=== PATIENT | male | born 1960 | race Caucasian/White ===

== ENCOUNTER 2020-02-29 09:22 | Inpatient (IN) | payer OTHER, SELFPAY ==
[2020-02-29] VITALS (14 sets, daily range): BP systolic 95–140; BP diastolic 46–91; PULSE 84–112; RESP 18–28; TEMP 36.3–36.9; O2SAT 96–100
--- NOTE | ~2020-02-29 | CT_ITS ---
EXAMINATION: CT abdomen pelvis w con DATE: 02/29/2020 10:49 INDICATION: Abdominal pain. Vomiting. TECHNIQUE: Computed tomography (CT) of the abdomen and pelvis was performed with 100 mL Omnipaque 350 intravenous contrast. Automated exposure control and iterative reconstruction technique were employe d. The dose-length product was 485.32 mGy-cm. COMPARISON: CT abdomen and pelvis 12/24/2015 FINDINGS: The visualized portions of the lung bases demonstrate mild atelectasis. No pleural effusion . The heart size is normal. No pericardial effusion. The liver and spleen are normal. There are quick es of cholecystectomy. The pancreas and adrenal glands are normal. There are cysts in the kidneys bhaskar suring up to 1.8 cm on the right. There are chronic bilateral inguinal hernias containing fat. There are no dilated loops of bowel. The appendix is not visualized. There is wall thickening of multiple l oops of jejunum with mesenteric edema. There is fat stranding around the proximal duodenum. There is a small volume of ascites. There are no pathologically enlarged lymph nodes. There is severe thoracic spondylosis and mild lumbar spondylosis. IMPRESSION: 1. Enteritis involving the duodenum and jejunum. 2. Small volume of ascites. Reviewed, dictated and finalized at location B.
[2020-02-29 10:00] LABS: Add Urine Microscopic? YES; Appearance Urine Cloudy (Clear); Bacteria Urine Trace /hpf; Bilirubin Urine Negative (Negative); Blood Urine Negative (Negative); Color Urine Amber (Yellow); Glucose Urine UA 1+ mg/dL (Negative); Ketones Urine Trace mg/dL (Negative); Leukocyte Esterase Ur Negative LEU/UL (Negative); Mucus Urine Rare /lpf; Nitrate Urine Negative (Negative); Protein Urine 1+ mg/dL (Negative); RBC Urine 0-2 /hpf (0-2); Specific Grav Ur 1.018 (1.001-1.035); Squamous Epithelial Cell Urine Rare /hpf (Few); Urobilinogen Urine Negative mg/dL (<2.0); WBC Urine 0-3 /hpf
--- NOTE | 2020-02-29 10:01 | PC.NURSE ---
Pt wretching loudly, yelling I'm freezing! .
[2020-02-29 10:03] LABS: Basophils Percent Auto 0.2 % (0.2-1.2); Eosinophils Percent Auto 0.1 % (0-4.4); Hematocrit 29.5 % (42.0-52.0); Hemoglobin 10.8 g/dL (14.0-18.0); Immature Granulocyte Absolute 0.19 K/mm3 (0.00-0.031); Immature Granulocyte Percent A 1.1 % (0-0.5); Lymphocytes Percent Auto 10.2 % (18.3-44.2); Mean Corpuscular HGB Conc 36.6 g/dl (32-36); Mean Corpuscular Hemoglobin 32.9 pg (26-34); Mean Corpuscular Volume 89.9 fl (80-100); Mean Platelet Volume 9.7 fl (7.4-10.4); Monocytes Absolute Auto 1.5 K/mm3 (0.1-0.6); Monocytes Percent Auto 8.2 % (2.6-8.5); Neutrophils Absolute Auto 14.2 K/mm3 (1.3-6.7); Neutrophils Percent Auto 80.2 % (45.5-73.1); Platelet Count Result 443 k/mm3 (150-375); Red Blood Count 3.28 M/mm3 (4.6-6.20); White Blood Count 17.7 K/mm3 (4.5-10.0)
[2020-02-29 10:08] LABS: INR 1.1; Partial Thromboplastin Time 22.6 SECONDS (22.3-36.8); Prothrombin Time 13.4 Seconds (11.1-14.7)
[2020-02-29 10:15] LABS: Alanine Aminotransferase 24 U/L (4-50); Alkaline Phosphatase 40 U/L (38-126); Anion Gap 22 mmol/L (8-16); Aspartate Amino Transferase 32 U/L (17-59); Bilirubin,Total 1.1 mg/dL (0.2-1.3); Blood Urea Nitrogen 17 mg/dL (9-20); Calcium 8.6 mg/dL (8.4-10.2); Carbon Dioxide 13 mmol/L (22-30); Chloride 94 mmol/L (98-107); Estimated CRCL calculation 43 ml/min; Estimated Glomerular Filt Rate 41; Glucose 235 mg/dL (75-110); Lipase 134 U/L (23-300); Potassium 3.7 mmol/L (3.4-5.0); Sodium 129 mmol/L (137-145)
--- NOTE | 2020-02-29 10:40 | PC.NURSE ---
Attempting additional blood draw and pt to CT via stretcher.
[2020-02-29] MEDS: SODIUM CHLORIDE 0.9% IV 1,000 ML 999 ML IV CONT ×3 (10:55→11:59)
[2020-02-29] MEDS: ONDANSETRON INJ 4 MG/2 ML VIAL IV PUSH ×2 (10:55→19:39)
[2020-02-29] MEDS: FAMOTIDINE 20 MG/2 ML VIAL IV PUSH (10:56)
--- NOTE | 2020-02-29 11:02 | PC.NURSE ---
Pt returns from CT, lactic acid declined. IVF and meds given IVP.
[2020-02-29 11:05] LABS: CRP 0.8 mg/dL (<1.0); Creatine Kinase 180 U/L (55-170)
[2020-02-29 11:26] LABS: Hemoglobin A1C 5.6 % (<5.7)
--- NOTE | 2020-02-29 11:30 | PC.NURSE ---
lactic acid collected. Pt noted to be yelling out less and appears to be sleeping intermittently but states he doesn't feel any better at present.
[2020-02-29 11:35] LABS: Lactic Acid Reflex 4.1 mmol/L (0.7-2.1)
--- NOTE | 2020-02-29 11:54 | ED.NAVMDI ---
HPI - Nausea/Vomiting/Diarrhea General Chief complaint: Nausea/Vomiting/Diarrhea <FRANKY Bright Last Filed: 02/29/20 12:17> Stated complaint: N/V - chills <FRANKY Bright Last Filed: 02/29/20 12:17> Time Seen by Provider: 02/29/20 10:15 <FRANKY Bright Last Filed: 02/29/20 12:17> Source: patient <FRANKY Bright Last Filed: 02/29/20 12:17> Mode of arrival: ambulatory <FRANKY Bright Last Filed: 02/29/20 12:17> Limitations: no limitations <FRANKY Bright Last Filed: 02/29/20 12:17> History of Present Illness HPI Narrative: Patient is a 59-year-old male who presents to emergency department for evaluation of chills sweats nausea vomiting weakness that occurred over the last 24 hours with multiple episodes of emesis as well as loose stools patient presents with chills sweats notes mild aching pain of the abdomen generalized myalgias. Patient does not take anything for his symptoms denies similar occurrence. Patient denies rectal bleeding melena or hematemesis <FRANKY Bright Last Filed: 02/29/20 12:17> Related Data Home medications: Home Medications Medication Instructions Recorded Confirmed Symbicort 02/29/20 albuterol sulfate 02/29/20 amlodipine 02/29/20 fenofibrate 02/29/20 lisinopril 02/29/20 metoprolol tartrate 02/29/20 montelukast 02/29/20 <FRANKY Bright Last Filed: 02/29/20 12:17> Allergies/Adverse reactions: Allergies Allergy/AdvReac Type Severity Reaction Status Date / Time No Known Allergies Allergy Verified 02/29/20 09:36 <FRANKY Bright Last Filed: 02/29/20 12:17> Review of Systems Review of Systems: All systems reviewed & are unremarkable except as noted in HPI and below <FRANKY Bright Last Filed: 02/29/20 12:17> PMFSH Past Medical History Medical History: Medical History COPD (chronic obstructive pulmonary disease) Hypertension <Surinder Oliva PA-C - Last Filed: 02/29/20 12:17> Social History Social History: Social History Alcohol intake: current Gender identity (if verbalized by the patient): Male <Surinder Oliva PA-C - Last Filed: 02/29/20 12:17> Exam Narrative: Exam Narrative: GENERAL: Ill-appearing, well-nourished, and in no acute distress. HEAD: Normocephalic, atraumatic. EYES: PERRLA and EOMI. ENT: Nares clear, no rhinorrhea or epistaxis. Mucous membranes moist. Oropharynx without tonsillar hypertrophy exudate or other lesions. Bilateral TMs pearly mittal nonbulging NECK: Supple. No adenopathy or masses. No carotid bruits or JVD CHEST: Clear to auscultation. No respiratory distress. No wheezes rales or rhonchi HEART: Regular rate and rhythm. No murmur heard. Normal peripheral pulses. ABDOMEN: Soft, nontender, nondistended, normal active bowel sounds. EXTREMITIES: Normal range of motion. No edema. SKIN: Warm, dry, no rash. NEURO: No focal deficits. Alert and oriented x3. Cranial nerves II through XII grossly intact PSYCH: Normal mood and affect. <Surinder Oliva PA-C - Last Filed: 02/29/20 12:17> Course Course Emergency Course: Patient hydrated in the emergency department will be treated for sepsis likely secondary to enteritis patient feeling better with interventions will be placed in hospital for continued evaluation patient also given nausea medicine and fluids which have helped significantly <Surinder Oliva PA-C - Last Filed: 02/29/20 12:17> AGRICULTURE RESEARCH DIRECTOR/PA Physician Supervision For this encounter, I have reviewed the PA documentation, treatment plan and medical decision making: And I have had [id number] time with the patient. Extensive conversation with patient regarding results of work-up need for admission all questions were answered patient agreement at this t
--- NOTE | 2020-02-29 11:59 | PC.NURSE ---
Pt had emesis approx 200cc yellow bile. Dima GUADALUPE made aware.
[2020-02-29] MEDS: METOCLOPRAMIDE HCL INJ 10 MG/2 ML VIAL IV PUSH (12:29)
[2020-02-29 14:12] LABS: Reflex Lactic Acid Yes or No Add Lactic
[2020-02-29 14:48] LABS: Lactic Acid 1.3 mmol/L (0.7-2.1)
[2020-02-29] MEDS: PANTOPRAZOLE SODIUM IV 40 MG VIAL IV PUSH (15:11)
[2020-02-29] MEDS: LACTATED RINGERS 1,000 ML 125 ML IV CONT (15:11)
[2020-02-29 17:07] LABS: Glucose Point of Care 156 (65-105)
--- NOTE | 2020-02-29 20:14 | PM.IMHP ---
H&P: HPI History of Present Illness Date/Time: 02/29/20 20:14 Chief complaint: Sepsis/acute kidney injury/dehydration/hyperglycem Narrative: This is a pleasant 59 year old male with known history of Chronic HCV, COPD, HTN, and chronic alcohol abuse who presented to the hospital today with complaints of nausea, vomiting, diarrhea, chills, diaphoresis and epigastric pain since yesterday afternoon. His last meal was yesterday morning. He is known to normally drink 8-10 beers daily and his last alcoholic drink was Wednesday. He reports having numerous episodes of bile colored emesis over the past day. He denies any bloody emesis. He has not been on antibiotics recently. He also reports having multiple watery stools since yesterday. He denies any sick contacts and doesn't believe he ate any spoiled food. He denies any blood bowel movements. He also is complaining of rigors and generalized myalgias. The patient was evaluated in the ER today and found to be severely septic with a lactic acid of 4.1, WBC of 17,700, and tachycardic. CT abd/pelvis demonstrated enteritis. He has treated with IV fluids and started on wide spectrum antibiotics. Currently he denies any headache, blurry vision, double vision, fever, neck stiffness, chest pain, shortness of breath, wheezing, coughing, sore throat, chest pain, palpitations, dysuria, hematuria, or focal neurological symptoms. No other complaints. Review of Systems Review of Systems: All systems reviewed & are unremarkable except as noted in HPI and below PMFSH Past Medical History Medical History (Updated 02/29/20 @ 20:33 by Dru Hand MD) COPD (chronic obstructive pulmonary disease) GERD (gastroesophageal reflux disease) Hepatitis C History of anemia Hyperlipidemia Hypertension Surgical History Surgical History (Updated 02/29/20 @ 20:23 by Dru Hand MD) H/O shoulder surgery History of laparoscopic cholecystectomy Hx of appendectomy Family History Family History Father Diabetes mellitus Hypertension Mother Hypertension Social History Social History Smoking packs per day: 1 Smoking cigarettes per day: 20.0 Years smoked: 44 Smoking pack-years: 44.00 Smoking status: Former smoker Tobacco type: cigarettes Second hand tobacco smoke exposure: No Smoking end date: 12/04/15 Alcohol intake: current Drinks per week: 50 Substance use: never Substance use type: former substance user and crack/cocaine Gender identity (if verbalized by the patient): Male Spiritual care concerns: No Meds Home Medications and Allergies Home Medications Medication Instructions Recorded Confirmed Type Symbicort 2 puff INHALATION BID 02/29/20 02/29/20 History albuterol sulfate 2 puff INHALATION PRN 02/29/20 02/29/20 History amlodipine 5 mg BYMOUTH DAILY 02/29/20 02/29/20 History fenofibrate 145 mg BYMOUTH DAILY 02/29/20 02/29/20 History lisinopril 20 mg BYMOUTH DAILY 02/29/20 02/29/20 History loratadine [Claritin] 10 mg PO DAILY 02/29/20 02/29/20 History metoprolol tartrate 25 mg BYMOUTH BID 02/29/20 02/29/20 History montelukast 10 mg BYMOUTH DAILY 02/29/20 02/29/20 History spironolactone 50 mg PO QAM 02/29/20 02/29/20 History Allergies Allergy/AdvReac Type Severity Reaction Status Date / Time No Known Allergies Allergy Verified 02/29/20 09:36 Vital Signs Vital Signs - 24 hr 02/29/20 09:30 02/29/20 09:51 02/29/20 10:12 Temperature 36.3 C L Pulse Rate 93 93 91 Respiratory Rate 26 H Blood Pressure 140/91 H Pulse Oximetry 100 98 100 02/29/20 10:15 02/29/20 10:30 02/29/20 11:17 Temperature Pulse Rate 95 112 H 89 Respiratory Rate 24 H 28 H 18 Blood Pressure 95/71 L Pulse Oximetry 100 96 02/29/20 11:48 02/29/20 12:01 02/29/20 13:47 Temperature Pulse Rate 93 90 103 H Respiratory Rate 22 H Blood Pressure
[2020-02-29 22:35] LABS: Amphetamine Screen Urine Negative (Negative); Barbiturate Screen Urine Negative (Negative); Benzodiazepines Screen Urine Positive (Negative); Cannabinoid Screen Urine Negative (Negative); Cocaine Screen Urine Positive (Negative); Methadone Screen Urine Negative (Negative); Opiate Screen Urine Negative (Negative); Phencyclidine Screen Urine Negative (Negative)
[2020-02-29 22:46] LABS: Glucose Point of Care 153 (65-105)
[2020-03-01] VITALS (7 sets, daily range): BP systolic 116–156; BP diastolic 55–88; PULSE 79–102; RESP 18–20; TEMP 36.3–37; O2SAT 98–100
[2020-03-01] MEDS: ONDANSETRON INJ 4 MG/2 ML VIAL IV PUSH (00:17)
[2020-03-01] MEDS: LACTATED RINGERS 1,000 ML 125 ML IV CONT ×3 (00:21→12:48)
[2020-03-01 02:30] LABS: Glucose Point of Care 127 (65-105)
[2020-03-01 06:49] LABS: Alanine Aminotransferase 16 U/L (4-50); Alkaline Phosphatase 27 U/L (38-126); Anion Gap 9 mmol/L (8-16); Aspartate Amino Transferase 28 U/L (17-59); Bilirubin,Total 0.7 mg/dL (0.2-1.3); Blood Urea Nitrogen 14 mg/dL (9-20); Carbon Dioxide 20 mmol/L (22-30); Chloride 102 mmol/L (98-107); Estimated CRCL calculation 41 ml/min; Estimated Glomerular Filt Rate 39; Glucose 124 mg/dL (75-110); Potassium 3.4 mmol/L (3.4-5.0); Sodium 131 mmol/L (137-145)
[2020-03-01 06:59] LABS: Basophils Percent Auto 0.3 % (0.2-1.2); Eosinophils Percent Auto 0.4 % (0-4.4); Hematocrit 21.3 % (42.0-52.0); Hemoglobin 7.4 g/dL (14.0-18.0); Immature Granulocyte Absolute 0.07 K/mm3 (0.00-0.031); Immature Granulocyte Percent A 0.7 % (0-0.5); Lymphocytes Absolute Auto 1.96 K/mm3 (0.9-3.2); Lymphocytes Percent Auto 19.9 % (18.3-44.2); Mean Corpuscular HGB Conc 34.7 g/dl (32-36); Mean Corpuscular Hemoglobin 32.6 pg (26-34); Mean Corpuscular Volume 93.8 fl (80-100); Mean Platelet Volume 9.6 fl (7.4-10.4); Monocytes Percent Auto 10.5 % (2.6-8.5); Neutrophils Absolute Auto 6.7 K/mm3 (1.3-6.7); Neutrophils Percent Auto 68.2 % (45.5-73.1); Platelet Count Result 285 k/mm3 (150-375); Red Blood Count 2.27 M/mm3 (4.6-6.20); Red Cell Distribution Width 12.2 % (11.5-14.5); White Blood Count 9.8 K/mm3 (4.5-10.0)
--- NOTE | 2020-03-01 07:34 | PC.NURSE ---
0641 Left message with care coordination about consult for alcohol abuse.
[2020-03-01] MEDS: KCL 20 MEQ/SW 100 ML 100 ML 50 MEQ IVPB (10:10)
[2020-03-01] MEDS: PANTOPRAZOLE SODIUM IV 40 MG VIAL IV PUSH (10:15)
[2020-03-01] MEDS: THIAMINE HCL 200 MG/2 ML VIAL 100 MG IV PUSH (10:15)
[2020-03-01] MEDS: SODIUM CHLORIDE 0.9% IV 250 ML 50 ML (12:28)
[2020-03-01 12:30] LABS: Glucose Point of Care 125 (65-105)
--- NOTE | 2020-03-01 12:54 | PM.IMPN ---
Progress Note: A&P Assessment and Plan (1) Gastroenteritis: Code(s): K52.9 - Noninfective gastroenteritis and colitis, unspecified Status: Acute Assessment and Plan: Patient presents with sudden onset of nausea/vomiting/diarrhea. CT shows enteritis. Continue IV Zosyn today. Continue supportive care with IV hydration, antiemetics and pain control. Advance to clear liquids this afternoon and see how he tolerates. (2) Severe sepsis: Code(s): A41.9 - Sepsis, unspecified organism; R65.20 - Severe sepsis without septic shock Status: Acute Assessment and Plan: Evidenced by leukocytosis, tachycardia, lactic acidosis. Lactic acid resolved to 1.3. Suspected source at this time is GI. Blood cultures pending with no growth to date. Improving today. Continue to monitor urine output and vital signs. (3) Acute kidney injury: Code(s): N17.9 - Acute kidney failure, unspecified Status: Acute Assessment and Plan: Appears to be prerenal, suspect from diarrhea and vomiting. Continue IV fluids for now. Avoid nephrotoxic agents and monitor renal function. (4) Prediabetes: Code(s): R73.03 - Prediabetes Status: Acute Assessment and Plan: HgbA1c 5.6. Accuchecks, SSI coverage. (5) Alcohol abuse: Code(s): F10.10 - Alcohol abuse, uncomplicated Status: Chronic Assessment and Plan: Patient drinks up to 10 beers daily, last drink 02/26. No evidence of withdrawal today. Continue to monitor with CIWA. Ativan PRN for withdrawal, continue thiamine. (6) COPD (chronic obstructive pulmonary disease): Qualifiers: COPD type: unspecified COPD Qualified Code(s): J44.9 - Chronic obstructive pulmonary disease, unspecified Code(s): J44.9 - Chronic obstructive pulmonary disease, unspecified Status: Chronic Assessment and Plan: No respiratory distress. Continue bronchodilators. (7) GERD (gastroesophageal reflux disease): Qualifiers: Esophagitis presence: esophagitis presence not specified Qualified Code(s): K21.9 - Gastro-esophageal reflux disease without esophagitis Code(s): K21.9 - Gastro-esophageal reflux disease without esophagitis Status: Chronic Assessment and Plan: Continue PPI therapy. (8) Hypertension: Qualifiers: Hypertension type: unspecified Qualified Code(s): I10 - Essential (primary) hypertension Code(s): I10 - Essential (primary) hypertension Status: Chronic Assessment and Plan: Stable, last 140/70. Plan to resume his home antihypertensives once he is tolerating a diet better. (9) Hyperlipidemia: Qualifiers: Hyperlipidemia type: unspecified Qualified Code(s): E78.5 - Hyperlipidemia, unspecified Code(s): E78.5 - Hyperlipidemia, unspecified Status: Chronic Assessment and Plan: Plan to resume fenofibrate once he is tolerating a diet better. Subjective Date/time seen: 03/01/20 12:35 Interval history: Mr. Mayorga is a 59yo M admitted for sepsis and enteritis. He is sleeping this afternoon but wakes to answer some questions. Reports his abdominal pain is currently 8/10, diffuse. He denies chest pain or shortness of breath. Says he may be willing to try some clear liquids for lunch. Tells me he has not vomited today. Review of Systems Review of Systems: Narrative: Twelve systems were reviewed with pertinent positives and negatives as per HPI. Exam Narrative: Exam Narrative: General: Male resting comfortably in bed in no acute distres
[2020-03-01 17:36] LABS: Glucose Point of Care 150 (65-105)
[2020-03-01 23:00] LABS: Glucose Point of Care 134 (65-105)
[2020-03-02] MEDS: LACTATED RINGERS 1,000 ML 125 ML IV CONT ×3 (00:58→20:00)
[2020-03-02 04:00] VITALS: BP 146/63; PULSE 79; RESP 20; TEMP 36.6; O2SAT 99
[2020-03-02 06:53] LABS: Anion Gap 9 mmol/L (8-16); Basophils Absolute Auto 0.1 K/mm3 (0.0-0.1); Basophils Percent Auto 0.7 % (0.2-1.2); Blood Urea Nitrogen 11 mg/dL (9-20); Carbon Dioxide 23 mmol/L (22-30); Chloride 102 mmol/L (98-107); Eosinophils Absolute Auto 0.1 K/mm3 (0-0.3); Eosinophils Percent Auto 1.2 % (0-4.4); Estimated CRCL calculation 48 ml/min; Estimated Glomerular Filt Rate 48; Glucose 104 mg/dL (75-110); Hemoglobin 7.1 g/dL (14.0-18.0); Immature Granulocyte Absolute 0.05 K/mm3 (0.00-0.031); Immature Granulocyte Percent A 0.7 % (0-0.5); Lymphocytes Absolute Auto 2.27 K/mm3 (0.9-3.2); Lymphocytes Percent Auto 30.5 % (18.3-44.2); Magnesium 0.3 mg/dL (1.6-2.3); Mean Corpuscular HGB Conc 34.3 g/dl (32-36); Mean Corpuscular Hemoglobin 32.4 pg (26-34); Mean Corpuscular Volume 94.5 fl (80-100); Mean Platelet Volume 9.3 fl (7.4-10.4); Monocytes Absolute Auto 0.9 K/mm3 (0.1-0.6); Monocytes Percent Auto 11.7 % (2.6-8.5); Neutrophils Absolute Auto 4.1 K/mm3 (1.3-6.7); Neutrophils Percent Auto 55.2 % (45.5-73.1); Platelet Count Result 268 k/mm3 (150-375); Potassium 3.3 mmol/L (3.4-5.0); Red Blood Count 2.19 M/mm3 (4.6-6.20); Sodium 134 mmol/L (137-145); White Blood Count 7.5 K/mm3 (4.5-10.0)
[2020-03-02 06:54] LABS: Hematocrit 20.7 % (42.0-52.0)
[2020-03-02] MEDS: PANTOPRAZOLE SODIUM IV 40 MG VIAL IV PUSH (07:49)
[2020-03-02] MEDS: THIAMINE HCL 200 MG/2 ML VIAL 100 MG IV PUSH (07:50)
[2020-03-02 08:00] VITALS: BP 146/63; PULSE 79; RESP 20; O2SAT 99
[2020-03-02] MEDS: ALBUTEROL SULFATE (*SP) AEROSOL 1 PUFF 2 PUFF INHALATION (08:22)
[2020-03-02] MEDS: MAGNESIUM SULF 4 GM/WATER100ML 4 GM/100 ML BAG IVPB (08:53)
[2020-03-02] MEDS: POTASSIUM CHLORIDE 20 MEQ TABLET 40 MEQ PO (08:53)
[2020-03-02 10:00] VITALS: BP 99/56; PULSE 99; RESP 16; TEMP 36.3; O2SAT 98
[2020-03-02 12:12] LABS: Hematocrit 21.3 % (42.0-52.0); Hemoglobin 7.3 g/dL (14.0-18.0)
[2020-03-02 12:15] LABS: Glucose Point of Care 117 (65-105)
[2020-03-02 12:23] LABS: Magnesium 1.5 mg/dL (1.6-2.3)
--- NOTE | 2020-03-02 13:01 | P.PNIM_ITS ---
Progress Note: A&P Assessment and Plan (1) Gastroenteritis: Code(s): K52.9 - Noninfective gastroenteritis and colitis, unspecified Status: Acute Assessment and Plan: * Patient presents with sudden onset of nausea/vomiting/diarrhea. CT shows enteritis. * Continue IV Zosyn today. Continue supportive care with IV hydration, antiemetics and pain control. * Advance diet as tolerated, try full liquids today and monitor. (2) Severe sepsis: Code(s): A41.9 - Sepsis, unspecified organism; R65.20 - Severe sepsis without septic shock Status: Acute Assessment and Plan: * Evidenced by leukocytosis, tachycardia, lactic acidosis. Lactic acid resolved to 1.3. Suspected source at this time is GI. Blood cultures pending with no growth to date. * Improving today. Continue to monitor urine output and vital signs. (3) Normocytic anemia: Code(s): D64.9 - Anemia, unspecified Status: Chronic Assessment and Plan: * H&H low, may in part be dilutional as he received judicious IV hydration. No evidence of acute bleeding. May be related to ETOH. * Obtain iron studies, B12/folate in AM and monitor CBC. Transfuse prn. (4) Acute kidney injury: Code(s): N17.9 - Acute kidney failure, unspecified Status: Acute Assessment and Plan: * Appears to be prerenal, suspect from diarrhea and vomiting. Continue IV fluids for now, Cr improving. * Avoid nephrotoxic agents and monitor renal function. (5) Prediabetes: Code(s): R73.03 - Prediabetes Status: Acute Assessment and Plan: * HgbA1c 5.6. Accuchecks, SSI coverage. (6) Alcohol abuse: Code(s): F10.10 - Alcohol abuse, uncomplicated Status: Chronic Assessment and Plan: * Patient drinks up to 10 beers daily, last drink 02/26. No evidence of withdrawal today. * Continue to monitor with CIWA. Ativan PRN for withdrawal, continue thiamine. (7) COPD (chronic obstructive pulmonary disease): Qualifiers: COPD type: unspecified COPD Qualified Code(s): J44.9 - Chronic obstructive pulmonary disease, unspecified Code(s): J44.9 - Chronic obstructive pulmonary disease, unspecified Status: Chronic Assessment and Plan: * No respiratory distress. Continue bronchodilators. (8) GERD (gastroesophageal reflux disease): Qualifiers: Esophagitis presence: esophagitis presence not specified Qualified Code(s): K21.9 - Gastro-esophageal reflux disease without esophagitis Code(s): K21.9 - Gastro-esophageal reflux disease without esophagitis Status: Chronic Assessment and Plan: * Continue PPI therapy. (9) Hypertension: Qualifiers: Hypertension type: unspecified Qualified Code(s): I10 - Essential (primary) hypertension Code(s): I10 - Essential (primary) hypertension Status: Chronic Assessment and Plan: * Stable, last 131/74. Plan to resume his home antihypertensives once he is to lerating a diet better. (10) Hyperlipidemia: Qualifiers: Hyperlipidemia type: unspecified Qualified Code(s): E78.5 - Hy perlipidemia, unspecified Code(s): E78.5 - Hyperlipidemia, unspecifi
--- NOTE | 2020-03-02 13:01 | PM.IMPN ---
Progress Note: A&P Assessment and Plan (1) Gastroenteritis: Code(s): K52.9 - Noninfective gastroenteritis and colitis, unspecified Status: Acute Assessment and Plan: Patient presents with sudden onset of nausea/vomiting/diarrhea. CT shows enteritis. Continue IV Zosyn today. Continue supportive care with IV hydration, antiemetics and pain control. Advance diet as tolerated, try full liquids today and monitor. (2) Severe sepsis: Code(s): A41.9 - Sepsis, unspecified organism; R65.20 - Severe sepsis without septic shock Status: Acute Assessment and Plan: Evidenced by leukocytosis, tachycardia, lactic acidosis. Lactic acid resolved to 1.3. Suspected source at this time is GI. Blood cultures pending with no growth to date. Improving today. Continue to monitor urine output and vital signs. (3) Normocytic anemia: Code(s): D64.9 - Anemia, unspecified Status: Chronic Assessment and Plan: H&H low, may in part be dilutional as he received judicious IV hydration. No evidence of acute bleeding. May be related to ETOH. Obtain iron studies, B12/folate in AM and monitor CBC. Transfuse prn. (4) Acute kidney injury: Code(s): N17.9 - Acute kidney failure, unspecified Status: Acute Assessment and Plan: Appears to be prerenal, suspect from diarrhea and vomiting. Continue IV fluids for now, Cr improving. Avoid nephrotoxic agents and monitor renal function. (5) Prediabetes: Code(s): R73.03 - Prediabetes Status: Acute Assessment and Plan: HgbA1c 5.6. Accuchecks, SSI coverage. (6) Alcohol abuse: Code(s): F10.10 - Alcohol abuse, uncomplicated Status: Chronic Assessment and Plan: Patient drinks up to 10 beers daily, last drink 02/26. No evidence of withdrawal today. Continue to monitor with CIWA. Ativan PRN for withdrawal, continue thiamine. (7) COPD (chronic obstructive pulmonary disease): Qualifiers: COPD type: unspecified COPD Qualified Code(s): J44.9 - Chronic obstructive pulmonary disease, unspecified Code(s): J44.9 - Chronic obstructive pulmonary disease, unspecified Status: Chronic Assessment and Plan: No respiratory distress. Continue bronchodilators. (8) GERD (gastroesophageal reflux disease): Qualifiers: Esophagitis presence: esophagitis presence not specified Qualified Code(s): K21.9 - Gastro-esophageal reflux disease without esophagitis Code(s): K21.9 - Gastro-esophageal reflux disease without esophagitis Status: Chronic Assessment and Plan: Continue PPI therapy. (9) Hypertension: Qualifiers: Hypertension type: unspecified Qualified Code(s): I10 - Essential (primary) hypertension Code(s): I10 - Essential (primary) hypertension Status: Chronic Assessment and Plan: Stable, last 131/74. Plan to resume his home antihypertensives once he is tolerating a diet better. (10) Hyperlipidemia: Qualifiers: Hyperlipidemia type: unspecified Qualified Code(s): E78.5 - Hyperlipidemia, unspecified Code(s): E78.5 - Hyperlipidemia, unspecified Status: Chronic Assessment and Plan: Plan to resume fenofibrate once he is tolerating a diet better. (11) Electrolyte abnormality: Code(s): E87.8 - Other disorders of electrolyte and fluid balance, not elsewhere classified Status: Acute Assessment and Plan: In the setting of GI illness. Magnesium was 0.3 this lorelei
[2020-03-02 14:00] VITALS: BP 131/74; PULSE 101; RESP 16; TEMP 36.5; O2SAT 100
[2020-03-02 17:51] LABS: Glucose Point of Care 120 (65-105)
[2020-03-02 18:00] VITALS: BP 146/69; PULSE 88; RESP 16; TEMP 36.6; O2SAT 100
[2020-03-02] MEDS: MAGNESIUM SULF 1 GM/D5W 100 ML 1 GM/100 ML BAG IVPB (18:30)
[2020-03-02 20:00] VITALS: BP 153/74; PULSE 87; RESP 20; TEMP 36.6; O2SAT 98
[2020-03-02 21:50] LABS: Glucose Point of Care 146 (65-105)
[2020-03-03] VITALS (15 sets, daily range): BP systolic 126–174; BP diastolic 70–90; PULSE 69–85; RESP 16–20; TEMP 36.2–37; O2SAT 98–100
[2020-03-03] MEDS: LACTATED RINGERS 1,000 ML 125 ML IV CONT (05:20)
[2020-03-03 07:10] LABS: Basophils Percent Auto 0.5 % (0.2-1.2); Eosinophils Absolute Auto 0.2 K/mm3 (0-0.3); Eosinophils Percent Auto 2.5 % (0-4.4); Immature Granulocyte Absolute 0.04 K/mm3 (0.00-0.031); Immature Granulocyte Percent A 0.5 % (0-0.5); Lymphocytes Absolute Auto 1.74 K/mm3 (0.9-3.2); Lymphocytes Percent Auto 21.8 % (18.3-44.2); Mean Corpuscular HGB Conc 33.5 g/dl (32-36); Mean Corpuscular Hemoglobin 31.9 pg (26-34); Mean Corpuscular Volume 95.4 fl (80-100); Mean Platelet Volume 9.3 fl (7.4-10.4); Monocytes Absolute Auto 0.8 K/mm3 (0.1-0.6); Monocytes Percent Auto 10.4 % (2.6-8.5); Neutrophils Absolute Auto 5.2 K/mm3 (1.3-6.7); Neutrophils Percent Auto 64.3 % (45.5-73.1); Platelet Count Result 268 k/mm3 (150-375); Red Blood Count 2.16 M/mm3 (4.6-6.20); Red Cell Distribution Width 11.9 % (11.5-14.5)
[2020-03-03 07:11] LABS: Hematocrit 20.6 % (42.0-52.0); Hemoglobin 6.9 g/dL (14.0-18.0)
[2020-03-03 07:29] LABS: Alanine Aminotransferase 20 U/L (4-50); Albumin Level 3.8 g/dL (3.5-5.1); Alkaline Phosphatase 36 U/L (38-126); Anion Gap 9 mmol/L (8-16); Aspartate Amino Transferase 40 U/L (17-59); Bilirubin,Total 0.7 mg/dL (0.2-1.3); Blood Urea Nitrogen 7 mg/dL (9-20); Calcium 7.4 mg/dL (8.4-10.2); Carbon Dioxide 24 mmol/L (22-30); Chloride 101 mmol/L (98-107); Estimated CRCL calculation 56 ml/min; Estimated Glomerular Filt Rate 57; Glucose 110 mg/dL (75-110); Magnesium 1.2 mg/dL (1.6-2.3); Potassium 3.4 mmol/L (3.4-5.0); Sodium 134 mmol/L (137-145)
[2020-03-03 07:37] LABS: Transferrin 248 mg/dL (206-381)
[2020-03-03 08:00] LABS: Glucose Point of Care 107 (65-105)
[2020-03-03] MEDS: THIAMINE HCL 200 MG/2 ML VIAL 100 MG IV PUSH (08:00)
[2020-03-03] MEDS: PANTOPRAZOLE SODIUM IV 40 MG VIAL IV PUSH (08:00)
[2020-03-03 08:34] LABS: Folic Acid 19.4 ng/mL (2.76->20)
[2020-03-03] MEDS: MAGNESIUM SULFATE 3GM/D5W100ML 3 GM/100 ML BAG IVPB (09:00)
[2020-03-03 10:11] LABS: Iron 46 ug/dL (49-181)
[2020-03-03 10:20] LABS: Percent Iron Saturation 13 % (20-50)
[2020-03-03] MEDS: POTASSIUM CHLORIDE 20 MEQ TABLET 40 MEQ PO (11:02)
[2020-03-03 11:53] LABS: Glucose Point of Care 146 (65-105)
--- NOTE | 2020-03-03 16:48 | PM.IMPN ---
Progress Note: A&P Assessment and Plan (1) Gastroenteritis: Code(s): K52.9 - Noninfective gastroenteritis and colitis, unspecified Status: Acute Assessment and Plan: Patient presents with sudden onset of nausea/vomiting/diarrhea. CT shows enteritis. Continue IV Zosyn today. Continue supportive care with antiemetics and pain control. Tolerating a low-fiber diet today. Hopeful for discharge home tomorrow. (2) Severe sepsis: Code(s): A41.9 - Sepsis, unspecified organism; R65.20 - Severe sepsis without septic shock Status: Resolved Assessment and Plan: Evidenced by leukocytosis, tachycardia, lactic acidosis. Lactic acid resolved to 1.3. Suspected source is GI. Blood cultures pending with no growth to date. (3) Normocytic anemia: Code(s): D64.9 - Anemia, unspecified Status: Chronic Assessment and Plan: H&H low, may in part be dilutional as he received judicious IV hydration. No evidence of acute bleeding. May be related to ETOH. Hgb 6.9 today. He is asymptomatic. Transfuse 1 unit packed RBC. Iron and B12 are low, will supplement. Monitor H&H. (4) Acute kidney injury: Code(s): N17.9 - Acute kidney failure, unspecified Status: Resolved Assessment and Plan: Appears to be prerenal, suspect from diarrhea and vomiting. Cr improved with IV hydration. Avoid nephrotoxic agents and monitor renal function. (5) Prediabetes: Code(s): R73.03 - Prediabetes Status: Acute Assessment and Plan: HgbA1c 5.6. Accuchecks, SSI coverage. (6) Alcohol abuse: Code(s): F10.10 - Alcohol abuse, uncomplicated Status: Chronic Assessment and Plan: Patient drinks up to 10 beers daily, last drink 02/26. No evidence of withdrawal today. Continue to monitor with CIWA. Ativan PRN for withdrawal, continue thiamine. (7) COPD (chronic obstructive pulmonary disease): Qualifiers: COPD type: unspecified COPD Qualified Code(s): J44.9 - Chronic obstructive pulmonary disease, unspecified Code(s): J44.9 - Chronic obstructive pulmonary disease, unspecified Status: Chronic Assessment and Plan: No respiratory distress. Continue bronchodilators. (8) GERD (gastroesophageal reflux disease): Qualifiers: Esophagitis presence: esophagitis presence not specified Qualified Code(s): K21.9 - Gastro-esophageal reflux disease without esophagitis Code(s): K21.9 - Gastro-esophageal reflux disease without esophagitis Status: Chronic Assessment and Plan: Continue PPI therapy. (9) Hypertension: Qualifiers: Hypertension type: unspecified Qualified Code(s): I10 - Essential (primary) hypertension Code(s): I10 - Essential (primary) hypertension Status: Chronic Assessment and Plan: Stable, last 131/74. Since he is tolerating a diet we'll resume his oral Norvasc, lisinopril, metoprolol. Monitor BP and change therapy as needed. (10) Hyperlipidemia: Qualifiers: Hyperlipidemia type: unspecified Qualified Code(s): E78.5 - Hyperlipidemia, unspecified Code(s): E78.5 - Hyperlipidemia, unspecified Status: Chronic Assessment and Plan: Resume fenofibrate. (11) Electrolyte abnormality: Code(s): E87.8 - Other disorders of electrolyte and fluid balance, not elsewhere classified Status: Acute Assessment and Plan: In the setting of GI illness. Magnesium was as low as 0.3 and has been replaced; 1.2 this AM and agai
[2020-03-03 17:58] LABS: Glucose Point of Care 129 (65-105)
[2020-03-03] MEDS: SODIUM CHLORIDE 0.9% IV 250 ML 30 ML (19:05)
[2020-03-03] MEDS: METOPROLOL TARTRATE 25 MG TABLET PO (21:27)
[2020-03-03 22:43] LABS: Glucose Point of Care 170 (65-105)
[2020-03-04] VITALS: BP 158/78; PULSE 70
[2020-03-04 04:00] VITALS: BP 169/88; PULSE 69
[2020-03-04 05:02] VITALS: BP 169/88; PULSE 69; RESP 16; TEMP 36.6; O2SAT 100
[2020-03-04 08:00] VITALS: BP 169/86; PULSE 71; RESP 20; TEMP 36.4; O2SAT 97
[2020-03-04] MEDS: amLODIPine BESYLATE 5 MG TABLET PO (08:38)
[2020-03-04] MEDS: CYANOCOBALAMIN 1,000 MCG TABLET 1000 MCG PO (08:39)
[2020-03-04] MEDS: lisinopriL 20 MG TABLET PO (08:39)
[2020-03-04] MEDS: FENOFIBRATE NANOCRYSTALLIZED 145 MG TABLET PO (08:39)
[2020-03-04] MEDS: FERROUS SULFATE 324 MG TABLET PO (08:39)
[2020-03-04 08:40] VITALS: PULSE 64
[2020-03-04] MEDS: MONTELUKAST SODIUM 10 MG TABLET PO (08:40)
[2020-03-04] MEDS: METOPROLOL TARTRATE 25 MG TABLET PO (08:40)
[2020-03-04] MEDS: THIAMINE HCL 200 MG/2 ML VIAL 100 MG IV PUSH (08:41)
[2020-03-04] MEDS: SPIRONOLACTONE 50 MG TABLET PO (08:41)
[2020-03-04] MEDS: PANTOPRAZOLE SODIUM IV 40 MG VIAL IV PUSH (08:41)
[2020-03-04 09:04] LABS: Basophils Percent Auto 0.5 % (0.2-1.2); Eosinophils Absolute Auto 0.2 K/mm3 (0-0.3); Eosinophils Percent Auto 2.7 % (0-4.4); Hematocrit 24.6 % (42.0-52.0); Hemoglobin 8.3 g/dL (14.0-18.0); Immature Granulocyte Absolute 0.03 K/mm3 (0.00-0.031); Immature Granulocyte Percent A 0.4 % (0-0.5); Lymphocytes Absolute Auto 1.76 K/mm3 (0.9-3.2); Lymphocytes Percent Auto 20.5 % (18.3-44.2); Mean Corpuscular HGB Conc 33.7 g/dl (32-36); Mean Corpuscular Hemoglobin 32.2 pg (26-34); Mean Corpuscular Volume 95.3 fl (80-100); Monocytes Percent Auto 11.9 % (2.6-8.5); Neutrophils Absolute Auto 5.5 K/mm3 (1.3-6.7); Platelet Count Result 240 k/mm3 (150-375); Red Blood Count 2.58 M/mm3 (4.6-6.20); White Blood Count 8.6 K/mm3 (4.5-10.0)
[2020-03-04 09:14] LABS: Glucose Point of Care 102 (65-105)
[2020-03-04 09:16] LABS: Anion Gap 8 mmol/L (8-16); Blood Urea Nitrogen 8 mg/dL (9-20); Calcium 7.8 mg/dL (8.4-10.2); Carbon Dioxide 24 mmol/L (22-30); Chloride 102 mmol/L (98-107); Estimated CRCL calculation 52 ml/min; Estimated Glomerular Filt Rate 52; Glucose 100 mg/dL (75-110); Magnesium 1.5 mg/dL (1.6-2.3); Potassium 3.9 mmol/L (3.4-5.0); Sodium 134 mmol/L (137-145)
[2020-03-04 11:58] LABS: Glucose Point of Care 113 (65-105)
[2020-03-04 12:00] VITALS: PULSE 69
--- NOTE | 2020-03-04 12:13 | PM.DS ---
DS: Admitting Diagnosis Admitting Diagnosis Admitting Diagnosis: Sepsis/acute kidney injury/dehydration/hyperglycem DS: Discharge Diagnosis Discharge Diagnosis (1) Gastroenteritis: Code(s): K52.9 - Noninfective gastroenteritis and colitis, unspecified Status: Acute Assessment and Plan: Date of Service is 03/04/20 Mr. Mayorga is a 59yo M with history of COPD, alcohol use disorder, GERD, hypertension, dyslipidemia, and prediabetes who presented to the ED for evaluation of sudden onset nausea/vomiting/diarrhea. CT abdomen demonstrated evidence of enteritis. He was treated with IV Zosyn and supportive care to include IV hydration, bowel rest, antiemetics and pain control. He was noted to have a normocytic anemia and low B12 felt to be related to iron deficiency and alcohol use disorder. He denied hematochezia or melena. He was transfused 1 unit of packed red cells 03/03/20 and started on oral iron and B12 supplementation. His nausea, vomiting and diarrhea improved with the therapy outlined above, tolerating a low-fiber diet, and he was hemodynamically stable for discharge 03/04/20 with oral antibiotics and instructions to follow up with PCP. Patient denies substance use however his urine drug screen was positive for benzodiazepines and cocaine. He was educated on illicit substance cessation and to cut back on alcohol intake. (2) Severe sepsis: Code(s): A41.9 - Sepsis, unspecified organism; R65.20 - Severe sepsis without septic shock Status: Resolved Assessment and Plan: Evidenced by leukocytosis, tachycardia, lactic acidosis. Lactic acid resolved to 1.3. Suspected source is GI. Blood cultures negative. (3) Normocytic anemia: Code(s): D64.9 - Anemia, unspecified Status: Chronic Assessment and Plan: H&H low, may in part be dilutional as he received judicious IV hydration. No evidence of acute bleeding. May be related to ETOH and iron panel is consistent with iron deficiency anemia. (4) Acute kidney injury: Code(s): N17.9 - Acute kidney failure, unspecified Status: Resolved Assessment and Plan: Appears to be prerenal, suspect from diarrhea and vomiting. Cr improved with IV hydration. (5) Prediabetes: Code(s): R73.03 - Prediabetes Status: Acute Assessment and Plan: HgbA1c 5.6. Follow up with PCP. (6) Alcohol abuse: Code(s): F10.10 - Alcohol abuse, uncomplicated Status: Chronic Assessment and Plan: Patient drinks up to 10 beers daily, last drink 02/26. No evidence of withdrawal during admission. (7) COPD (chronic obstructive pulmonary disease): Qualifiers: COPD type: unspecified COPD Qualified Code(s): J44.9 - Chronic obstructive pulmonary disease, unspecified Code(s): J44.9 - Chronic obstructive pulmonary disease, unspecified Status: Chronic Assessment and Plan: No respiratory distress. Continue bronchodilators. (8) GERD (gastroesophageal reflux disease): Qualifiers: Esophagitis presence: esophagitis presence not specified Qualified Code(s): K21.9 - Gastro-esophageal reflux disease without esophagitis Code(s): K21.9 - Gastro-esophageal reflux disease without esophagitis Status: Chronic Assessment and Plan: Continue PPI therapy. (9) Hypertension: Qualifiers: Hypertension type: unspecified Qualified Code(s): I10 - Essential (primary) hypertension Code(s): I10 - Essential (primary) hypertension Status: Chronic Assessment and Plan: Stable on his home antihypertensive regimen.
== END 2020-03-04 13:14 | disposition home or self-care (01) | DRG 720 ==
LOC: ANHED 12:17 → ANH3MEDSUR 03-01 07:00
PROVIDERS: Emergency Medicine Emergency Medical Services; Family Medicine; Admitting Provider Internal Medicine; Emergency Provider Emergency Medicine; Visit Provider Physician Assistant
DX: A41.9 Sepsis, unspecified organism (principal); N28.9 Disorder of kidney and ureter, unspecified; E86.0 Dehydration; K52.9 Noninfective gastroenteritis and colitis, unspecified; J44.9 Chronic obstructive pulmonary disease, unspecified; R65.20 Severe sepsis without septic shock; D64.9 Anemia, unspecified; F10.10 Alcohol abuse, uncomplicated; K21.9 Gastro-esophageal reflux disease without esophagitis; I10 Essential (primary) hypertension; E78.5 Hyperlipidemia, unspecified
CPT/HCPCS: 36415; 36430; 74177; 80048; 80053; 80307; 81001; 82550; 82607; 82728; 82746; 83036; 83540; 83550; 83605; 83690; 83735; 84466; 85014; 85018; 85025; 85610; 85730; 86140; 86850; 86900; 86901; 86920; 87040; 94640; 96361; 96365; 96375; 99285; A9270; C9113; J0131; J2060; J2405; J2543; J2765; J3411; J3475; J3480; J7030; J7050; J7120; P9016; Q9967

== ENCOUNTER 2020-03-18 21:41 | Inpatient (IN) | payer OTHER, SELFPAY ==
--- NOTE | ~2020-03-18 | CT_ITS ---
EXAMINATION: CT abdomen pelvis wo con DATE: 03/18/2020 22:31 INDICATION: Vomiting and diarrhea. TECHNIQUE: Computed tomography (CT) of the abdomen and pelvis was performed without intravenous contr ast. Automated exposure control and iterative reconstruction technique were employed. The dose-length product was 562.14 mGy-cm. COMPARISON: CT abdomen and pelvis 02/29/2020 FINDINGS: The visualized portions of the lung bases are clear without pneumonia or pleural effusion. The heart size is normal. No pericardial effusion. Pneumobilia is noted, likely secondary to sphincte rotomy. There are changes of cholecystectomy. The spleen, pancreas, and adrenal glands are normal. Th ere is a 1.8 cm cyst in right kidney. Left kidney is normal. There are bilateral inguinal hernias con taining fat. There are no dilated loops of bowel. The appendix is not visualized. There is liquid sto ol in the colon correlating with the symptom of diarrhea. There are no pathologically enlarged lymph nodes. There is no free intraperitoneal fluid. There is severe thoracic spondylosis and mild lumbar s pondylosis. IMPRESSION: 1. No etiology for the patient's symptoms. Reviewed, dictated and finalized at location A.
--- NOTE | ~2020-03-18 | US_ITS ---
US renal BI 03/20/2020 08:54 Procedure: Realtime transabdominal ultrasound of the kidneys and bladder. Indication: Acute renal insufficiency Comparison: 07/12/2019 Findings: Renal echotexture is normal bilaterally without hydronephrosis, contour deforming mass or r enal calculus. The right kidney measures 11 cm and left kidney measures 12 cm. Bladder within normal limits. Impression: 1: Unremarkable renal ultrasound. No stones, masses or hydronephrosis. Reviewed, dictated and finalized at location B. Impression: 1: Unremarkable renal ultrasound. No stones, masses or hydronephrosis.
[2020-03-18 21:42] VITALS: BP 127/73; PULSE 121; RESP 22; TEMP 36; O2SAT 100
[2020-03-18 21:47] VITALS: BP 125/68
[2020-03-18 21:58] LABS: Basophils Absolute Auto 0.1 K/mm3 (0.0-0.1); Basophils Percent Auto 0.7 % (0.2-1.2); Eosinophils Percent Auto 0.3 % (0-4.4); Hematocrit 37.4 % (42.0-52.0); Immature Granulocyte Absolute 0.08 K/mm3 (0.00-0.031); Immature Granulocyte Percent A 0.7 % (0-0.5); Lymphocytes Absolute Auto 1.92 K/mm3 (0.9-3.2); Lymphocytes Percent Auto 16.2 % (18.3-44.2); Mean Corpuscular HGB Conc 34.8 g/dl (32-36); Mean Corpuscular Volume 92.1 fl (80-100); Mean Platelet Volume 9.7 fl (7.4-10.4); Monocytes Absolute Auto 1.8 K/mm3 (0.1-0.6); Monocytes Percent Auto 15.3 % (2.6-8.5); Neutrophils Absolute Auto 7.9 K/mm3 (1.3-6.7); Neutrophils Percent Auto 66.8 % (45.5-73.1); Platelet Count Result 553 k/mm3 (150-375); Red Blood Count 4.06 M/mm3 (4.6-6.20); Red Cell Distribution Width 11.9 % (11.5-14.5); White Blood Count 11.8 K/mm3 (4.5-10.0)
[2020-03-18 22:14] LABS: Alanine Aminotransferase 33 U/L (4-50); Albumin Level 5.3 g/dL (3.5-5.1); Alkaline Phosphatase 54 U/L (38-126); Anion Gap 26 mmol/L (8-16); Aspartate Amino Transferase 40 U/L (17-59); Bilirubin,Total 1.1 mg/dL (0.2-1.3); Blood Urea Nitrogen 28 mg/dL (9-20); Calcium 9.4 mg/dL (8.4-10.2); Carbon Dioxide 9 mmol/L (22-30); Chloride 96 mmol/L (98-107); Estimated CRCL calculation 15 ml/min; Estimated Glomerular Filt Rate 13; Glucose 210 mg/dL (75-110); Lipase 280 U/L (23-300); Potassium 4.1 mmol/L (3.4-5.0); Sodium 131 mmol/L (137-145)
--- NOTE | 2020-03-18 22:18 | ECG_ITS ---
Measurements Intervals [place] Rate: 109 P: 31 SD: 160 QRS: 51 QRSD: 126 T: 31 QT: 351 QTc: 474 Interpretive Statements SINUS TACHYCARDIA VENTRICULAR PREMATURE COMPLEX RIGHT BUNDLE BRANCH BLOCK ABNORMAL ECG Electronically Signed On 03-19-2020 7:00:57 CDT by Garret Valdez D.O.
--- NOTE | 2020-03-18 22:18 | ED.GENADULT ---
HPI - General Adult General Chief complaint: Nausea/Vomiting/Diarrhea Stated complaint: Diarrhea, n/v Time Seen by Provider: 03/18/20 22:07 Source: patient History of Present Illness HPI narrative: Patient is a 59 y/o male complaining of vomiting and diarrhea since yesterday. He states that he had 2-3 episodes of vomiting and over 30 episodes of diarrhea. He has some abdominal cramping. He also has some sweating. He denies any fever, cough, chest pain or SOB. He states that he was recently admitted for sepsis. He admits that he did some cocaine 4-5 days ago and he was drinking several days ago. Related Data Home Medications Medication Instructions Recorded Confirmed Symbicort 2 puff INHALATION BID 02/29/20 03/19/20 albuterol sulfate 2 puff INHALATION PRN 02/29/20 03/19/20 amlodipine 5 mg BYMOUTH DAILY 02/29/20 03/19/20 fenofibrate 145 mg BYMOUTH DAILY 02/29/20 03/19/20 lisinopril 20 mg BYMOUTH DAILY 02/29/20 03/19/20 loratadine [Claritin] 10 mg PO DAILY 02/29/20 03/19/20 metoprolol tartrate 25 mg BYMOUTH ONCE 02/29/20 03/19/20 montelukast 10 mg BYMOUTH DAILY 02/29/20 03/19/20 spironolactone 50 mg PO QAM 02/29/20 03/19/20 Aspirin Low Dose 81 mg PO ONCE 03/19/20 03/19/20 Allergies Allergy/AdvReac Type Severity Reaction Status Date / Time No Known Allergies Allergy Verified 03/18/20 21:46 Review of Systems Constitutional: Constitutional: Denies chills, Denies fever(s), Denies headache(s) and Denies weakness Eyes: Eyes: Denies blurry vision ENT: Denies headache(s) and Denies neck pain Cardiovascular: Cardiovascular: Denies chest pain and Denies dyspnea Respiratory: Respiratory: Denies cough and Denies dyspnea Gastrointestinal: Gastrointestinal: Reports abdominal pain, Reports diarrhea, Reports nausea and Reports vomiting Genitourinary: Genitourinary: Denies hematuria and Denies dysuria Musculoskeletal: Musculoskeletal: Denies back pain and Denies neck pain Neurologic: Denies headache(s) and Denies weakness [facility] Past Medical History Medical History COPD (chronic obstructive pulmonary disease) GERD (gastroesophageal reflux disease) Hepatitis C History of anemia Hyperlipidemia Hypertension Surgical History Surgical History H/O shoulder surgery History of laparoscopic cholecystectomy Hx of appendectomy Family History Family History Father Diabetes mellitus Hypertension Mother Hypertension Social History Social History Smoking packs per day: 1 Smoking cigarettes per day: 20.0 Years smoked: 44 Smoking pack-years: 44.00 Smoking status: Former smoker Tobacco type: cigarettes Second hand tobacco smoke exposure: No Smoking end date: 12/04/15 Alcohol intake: current Drinks per week: 50 Substance use: former Substance use type: former substance user, marijuana, crack/cocaine and sedatives Spiritual care concerns: No Exam Const: General: no acute distress and well developed Orientation/consciousness: oriented to person, oriented to place, oriented to time and patient oriented x3 HENMT: Head: normocephalic Ears: external ears normal General nose exam: Normal external nose present Eyes: General: appearance normal, both eyes and all related structures Conjunctivae: conjunctivae normal Neck: Neck: normal visual inspection and full ROM Chest: Chest palpation & inspection: normal inspection of the chest and no tenderness Resp: Effort & Inspection: normal respiratory effort Auscultation: clear to auscultation bilaterally Cardio: Rate: tachycardic Rhythm: regular rhythm GI: GI Palp: No abdominal tenderness and Yes Soft to palpation Skin: General skin exam: normal color and turgor normal Neuro: General: oriented to person, oriented to place, oriented to time
[2020-03-18 23:22] LABS: Creatine Kinase 92 U/L (55-170)
[2020-03-18 23:24] LABS: Lactic Acid Reflex 3.2 mmol/L (0.7-2.1)
[2020-03-18] MEDS: ONDANSETRON INJ 4 MG/2 ML VIAL IV PUSH (23:35)
[2020-03-18] MEDS: SODIUM CHLORIDE 0.9% IV 1,000 ML 999 ML IV CONT (23:35)
[2020-03-19] VITALS (18 sets, daily range): BP systolic 113–153; BP diastolic 68–89; PULSE 87–115; RESP 16–20; TEMP 36.3–37.1; O2SAT 98–100; BMI 28.8
--- NOTE | 2020-03-19 01:46 | ADMGEN ---
This patient, Darrel Mayorga, was admitted to Medical Room 346-01. Patient/family oriented to hospital policies and general routines including ID bracelet, bed and alarms, visiting hours, pain management, procedures, bathroom and other care routines, personal items, smoking policy, room service/diet, and visiting hours. Valuables list has been completed. Information on how to activate the Rapid Response Team has been discussed. Patient/Family are encouraged to report perceived risks to care and to ask questions if they do not understand what they are told or what they should do.
[2020-03-19] MEDS: SODIUM CHLORIDE 0.9% IV 1,000 ML 125 ML IV CONT ×3 (01:51→20:46)
--- NOTE | 2020-03-19 01:58 | PM.IMHP ---
H&P: HPI History of Present Illness Date/Time: 03/19/20 01:58 Chief complaint: cris, dehydration Narrative: this is a 59-year-old male with known past medical history of pre diabetes, COPD, chronic alcohol use, hypertension, hyperlipidemia, GERD who is well known to our hospitalist service as he was just discharged 2 weeks ago after he was treated for severe sepsis and gastroenteritis. Tonight the patient returned to the hospital with ongoing vomiting and diarrhea. He states that he has had ongoing diarrhea since he was discharged although this has worsened over the past 2 days. He describes having over 30 episodes of diarrhea as well as 2-3 episodes of vomiting yesterday. he admits he has not been able to tolerate oral fluids as he immediately started vomiting after drinking some fluids. He also complains of abdominal discomfort especially lower abdominal cramping. He currently denies any fever, cough, shortness of breath, chest pain, palpitations, dysuria, hematuria, black stools, lower extremity swelling, rectal bleeding, or focal neurological deficits. The [facility] and found to have be in acute renal failure with a creatinine of 4.80. his lactic acid was 3.2. CT abdomen pelvis was obtained in [facility] ER [facility] which was unremarkable for the patient's symptoms. The patient was tested for C diff colitis as he was previously on Zosyn 2 weeks ago when he was admitted to the hospital. We been asked to admit the patient to the hospital for his acute kidney injury. The patient was previously positive on his UDS for cocaine use and [facility] denies any recent cocaine use. Review of Systems Review of Systems: All systems reviewed & are unremarkable except as noted in HPI and below PMFSH Past Medical History Medical History COPD (chronic obstructive pulmonary disease) GERD (gastroesophageal reflux disease) Hepatitis C History of anemia Hyperlipidemia Hypertension Surgical History Surgical History H/O shoulder surgery History of laparoscopic cholecystectomy Hx of appendectomy Family History Family History Father Diabetes mellitus Hypertension Mother Hypertension Social History Social History Smoking packs per day: 1 Smoking cigarettes per day: 20.0 Years smoked: 44 Smoking pack-years: 44.00 Smoking status: Former smoker Tobacco type: cigarettes Second hand tobacco smoke exposure: No Smoking end date: 12/04/15 Alcohol intake: current Drinks per week: 50 Substance use: former Substance use type: former substance user, marijuana, crack/cocaine and sedatives Spiritual care concerns: No Meds Home Medications and Allergies Home Medications Medication Instructions Recorded Confirmed Type Symbicort 2 puff INHALATION BID 02/29/20 03/19/20 History albuterol sulfate 2 puff INHALATION PRN 02/29/20 03/19/20 History amlodipine 5 mg BYMOUTH DAILY 02/29/20 03/19/20 History fenofibrate 145 mg BYMOUTH DAILY 02/29/20 03/19/20 History lisinopril 20 mg BYMOUTH DAILY 02/29/20 03/19/20 History loratadine [Claritin] 10 mg PO DAILY 02/29/20 03/19/20 History metoprolol tartrate 25 mg BYMOUTH ONCE 02/29/20 03/19/20 History montelukast 10 mg BYMOUTH DAILY 02/29/20 03/19/20 History spironolactone 50 mg PO QAM 02/29/20 03/19/20 History cyanocobalamin (vitamin B-12) 1,000 mcg PO QAM 28 Days #28 tablet 03/04/20 03/19/20 Rx [Vitamin B-12] ferrous sulfate 325 mg PO DAILY 30 Days #30 tablet 03/04/20 03/19/20 Rx Allergies Allergy/AdvReac Type Severity Reaction Status Date / Time No Known Allergies Allergy Verified 03/18/20 21:46 Vital Signs Vital Signs - 24 hr 03/18/20 21:42 03/19/20 01:42 03/19/20 01:49 Temperature 36.0 C L 36.8 C 36.3 C L Pulse
[2020-03-19 02:07] LABS: Reflex Lactic Acid Yes or No Add Lactic
[2020-03-19 02:49] LABS: Lactic Acid 1.5 mmol/L (0.7-2.1)
[2020-03-19] MEDS: PROMETHAZINE HCL 25 MG/ML AMPUL IM (04:54)
[2020-03-19] MEDS: LOPERAMIDE HCL 2 MG CAPSULE PO (04:57)
[2020-03-19 05:55] LABS: Add Urine Microscopic? YES; Amorphous Sediment Urine Few; Appearance Urine Cloudy (Clear); Bacteria Urine Trace /hpf; Bilirubin Urine 1+ (Negative); Blood Urine Negative (Negative); Color Urine Amber (Yellow); Glucose Urine UA Negative (Negative); Hyaline Casts Urine 50+ /lpf; Ketones Urine Negative (Negative); Leukocyte Esterase Ur Negative LEU/UL (Negative); Mucus Urine Few /lpf; Nitrate Urine Negative (Negative); Protein Urine 2+ mg/dL (Negative); Specific Grav Ur 1.018 (1.001-1.035); Squamous Epithelial Cell Urine Many /hpf (Few)
[2020-03-19 06:03] LABS: Barbiturate Screen Urine Negative (Negative)
[2020-03-19 06:10] LABS: Amphetamine Screen Urine Negative (Negative); Cannabinoid Screen Urine Negative (Negative); Cocaine Screen Urine Positive (Negative); Methadone Screen Urine Negative (Negative); Opiate Screen Urine Negative (Negative); Phencyclidine Screen Urine Negative (Negative)
[2020-03-19 06:20] LABS: Benzodiazepines Screen Urine Positive (Negative)
[2020-03-19] MEDS: THIAMINE HCL 200 MG/2 ML VIAL 100 MG IV PUSH (08:47)
[2020-03-19 11:43] LABS: Glucose Point of Care 136 (65-105)
[2020-03-19 11:43] LABS: Glucose Point of Care 130 (65-105)
[2020-03-19] MEDS: FERROUS SULFATE 324 MG TABLET PO (12:31)
[2020-03-19] MEDS: ASPIRIN 81 MG CHEWABLE TABLET PO (12:31)
[2020-03-19] MEDS: METOPROLOL TARTRATE 25 MG TABLET BY MOUTH (12:31)
[2020-03-19] MEDS: ONDANSETRON INJ 4 MG/2 ML VIAL IV PUSH ×3 (12:39→23:51)
--- NOTE | 2020-03-19 13:13 | WPDGICN ---
Assessment and Plan Assessment and plan (1) Nausea & vomiting: Qualifiers: Vomiting type: unspecified Vomiting Intractability: non-intractable Qualified Code(s): R11.2 - Nausea with vomiting, unspecified Code(s): R11.2 - Nausea with vomiting, unspecified Status: Acute Assessment and Plan: probably multifactorial, he was recently in the hospital treated for gastroenteritis but also still drinking and using cocaine. This time presented with NATALY and dehydration. Continue with medical support, antiemetics prn, fluids. (2) Acute dehydration: Code(s): E86.0 - Dehydration Status: Acute Assessment and Plan: better after medical treatment (3) Diarrhea: Code(s): R19.7 - Diarrhea, unspecified Status: Acute Assessment and Plan: stool samples pending, will reassess (4) NATALY (acute kidney injury): Code(s): N17.9 - Acute kidney failure, unspecified Status: Acute Assessment and Plan: on fluids, continue to monitor (5) Alcohol abuse: Code(s): F10.10 - Alcohol abuse, uncomplicated Status: Chronic Assessment and Plan: he is at risk for dt's, ciwa protocol on thiamine, mvi, ativan prn liver enzymes normal will check hcv RNA (patient says that was treated and achieved SVR) GI Consult Note Consult date/time: 03/19/20 13:13 Reason for consult: nausea, vomiting, diarrhea HPI: Darrel Mayorga is a 59 year old male past medical history of pre diabetes, COPD, chronic alcohol use (8-15 beers daily for years), hypertension, hyperlipidemia, GERD who was in the hospital about 2 weeks ago for severe sepsis and gastroenteritis. He also has history of cocaine use (last time few days ago) and he came here with nausea and vomiting for last 2 days, also diarrhea. ER evaluation with acute renal failure, creati 4.8 (last time about 1), liver enzymes normal. Had CT scan that was normal (2 weeks ago showed enteritis). He also was anxious and received ativan. He was admitted with dehydration and is getting fluids now. He also has been treated for HCV and was told that cleared infection. Had liver bx 2017 that showed stage 3 fibrosis. He also had ERCP by Dr Hernandez 2017 because choledocholithiasis followed by cholecystectomy with liver bx. Review of Systems Constitutional: Constitutional: Reports fatigue and Denies headache(s) Eyes: Eyes: Denies blurry vision ENT: Reports Normal hearing present, Denies headache(s) and Denies neck pain Cardiovascular: Cardiovascular: Denies chest pain and Denies dyspnea Respiratory: Respiratory: Denies dyspnea Gastrointestinal: Gastrointestinal: Reports diarrhea, Reports nausea and Reports vomiting Genitourinary: Genitourinary: Denies dysuria Musculoskeletal: Musculoskeletal: Denies neck pain Integumentary/Breasts: Skin/Breast: Denies dry skin Neurologic: Reports Normal hearing present, Denies headache(s) and Denies weakness Psychiatric: Psychiatric: Reports anxiety Endocrine: Endocrine: Denies change in body appearance Hematologic/Lymphatic: Hematologic/Lymphatic: Denies easy bleeding Allergic/Immunologic: Allergic/Immunologic: Denies urticaria PMFSH Past Medical History Medical History COPD (chronic obstructive pulmonary disease) GERD (gastroesophageal reflux disease) Hepatitis C History of anemia Hyperlipidemia Hypertension Surgical History Surgical History H/O shoulder surgery History of laparoscopic cholecystectomy Hx of appendectomy Family History Family History Father Diabetes mellitus Hypertension Mother Hypertension Social History Social History Smoking packs per day: 1 Smoking cigarettes per day: 20.0 Years smoked: 44 Smoking pack-years: 44.00 Smoking status: [place]
[2020-03-19 13:27] LABS: Basophils Absolute Auto 0.1 K/mm3 (0.0-0.1); Basophils Percent Auto 0.9 % (0.2-1.2); Eosinophils Absolute Auto 0.2 K/mm3 (0-0.3); Eosinophils Percent Auto 2.1 % (0-4.4); Hematocrit 33.2 % (42.0-52.0); Hemoglobin 11.4 g/dL (14.0-18.0); Immature Granulocyte Absolute 0.08 K/mm3 (0.00-0.031); Immature Granulocyte Percent A 0.9 % (0-0.5); Lymphocytes Absolute Auto 2.36 K/mm3 (0.9-3.2); Lymphocytes Percent Auto 25.9 % (18.3-44.2); Mean Corpuscular HGB Conc 34.3 g/dl (32-36); Mean Corpuscular Volume 93.3 fl (80-100); Mean Platelet Volume 9.9 fl (7.4-10.4); Monocytes Absolute Auto 1.7 K/mm3 (0.1-0.6); Monocytes Percent Auto 18.7 % (2.6-8.5); Neutrophils Absolute Auto 4.7 K/mm3 (1.3-6.7); Neutrophils Percent Auto 51.5 % (45.5-73.1); Platelet Count Result 472 k/mm3 (150-375); Red Blood Count 3.56 M/mm3 (4.6-6.20); White Blood Count 9.1 K/mm3 (4.5-10.0)
[2020-03-19 13:45] LABS: Albumin Level 4.7 g/dL (3.5-5.1); Anion Gap 18 mmol/L (8-16); Blood Urea Nitrogen 35 mg/dL (9-20); Calcium 7.9 mg/dL (8.4-10.2); Carbon Dioxide 15 mmol/L (22-30); Chloride 101 mmol/L (98-107); Estimated CRCL calculation 11 ml/min; Estimated Glomerular Filt Rate 10; Glucose 154 mg/dL (75-110); Phosphorus 5.1 mg/dL (2.5-4.5); Sodium 134 mmol/L (137-145)
[2020-03-19 16:46] LABS: Glucose Point of Care 172 (65-105)
--- NOTE | 2020-03-19 18:14 | PM.IMPN ---
Progress Note: A&P Assessment and Plan (1) Acute renal failure: Qualifiers: Acute renal failure type: unspecified Qualified Code(s): N17.9 - Acute kidney failure, unspecified Code(s): N17.9 - Acute kidney failure, unspecified Status: Acute Assessment and Plan: Appears to be prerenal from diarrhea, nausea and vomiting as well as taking diuretics and Losartan vs the patients NVD being caused by uremic syndrome secondary to NATALY. He received aggressive IV fluid hydration and repeat BMP showed Cr elevated from 4.8 to 5.7. UA showed cloudy urine, 2+ protein, 50+ hyaline casts which could represent injury from dehydration vs diuretic therapy Nephrology was consulted on the pt and their input is greatly appreciated. Ordered Renal US bilaterally. Monitor urine output and renal function. avoid nephrotoxic agents, Renally dose medications. (2) Lactic acid acidosis: Code(s): E87.2 - Acidosis Status: Acute Assessment and Plan: Most likely from severe dehydration. No acute signs of infection at this time, urine appears to be contaminated. NVD most likely from uremic syndrome vs gastritis vs viral infection Abd/Pelvis CT showed no acute findings Stool cultures sent along with C. diff testing. Continue monitoring. (3) Nausea & vomiting: Qualifiers: Vomiting type: unspecified Vomiting Intractability: non-intractable Qualified Code(s): R11.2 - Nausea with vomiting, unspecified Code(s): R11.2 - Nausea with vomiting, unspecified Status: Acute Assessment and Plan: No acute signs of infection at this time, urine appears to be contaminated. NVD most likely from uremic syndrome vs gastritis vs viral infection Abd/Pelvis CT showed no acute findings Stool cultures sent along with C. diff testing. Continue monitoring. PRN Antiemetics. (4) Diarrhea: Code(s): R19.7 - Diarrhea, unspecified Status: Acute Assessment and Plan: No acute signs of infection at this time, urine appears to be contaminated. NVD most likely from uremic syndrome vs gastritis vs viral infection Abd/Pelvis CT showed no acute findings Stool cultures sent along with C. diff testing. Continue monitoring. PRN Antiemetics. (5) Gastroenteritis: Code(s): K52.9 - Noninfective gastroenteritis and colitis, unspecified Status: Acute Assessment and Plan: The patient continues to have diarrhea. C. diff toxin and stool cultures and pending Continue pain control as needed. IV PPI continued IV hydration. supportive care. (6) Acute dehydration: Code(s): E86.0 - Dehydration Status: Acute Assessment and Plan: Continue IV hydration. Monitor urine output. (7) Alcohol abuse: Code(s): F10.10 - Alcohol abuse, uncomplicated Status: Chronic Assessment and Plan: CIWA-AR protocol. Patients CIWA was 8 last night and this morning and he recived IV Ativan. CIWA seems better now. Continue Thiamine IV daily. Continue monitoring CIWA and educated on alcohol cessation. (8) Prediabetes: Code(s): R73.03 - Prediabetes Status: Chronic Assessment and Plan: Will check HgbA1c. Serum glucose was 154 Continue monitoring Q6hrs since he is not eating much. SSI. Hypoglycemic protocol in place. (9) Hyperlipidemia: Qualifiers: Hyperlipidemia type: unspecified Qualified Code(s): E78.5 - Hyperlipidemia, unspecified Code(s): E78.5 - Hyperlipidemia, unspecified Status: Chronic Assessment and Plan: Continue fenofibrate. (10)
[2020-03-19] MEDS: MONTELUKAST SODIUM 10 MG TABLET PO (20:20)
[2020-03-19] MEDS: busPIRone HCL 5 MG TABLET PO (20:21)
[2020-03-20] VITALS (12 sets, daily range): BP systolic 125–154; BP diastolic 70–102; PULSE 68–94; RESP 14–16; TEMP 36.6–37.4; O2SAT 97–100
[2020-03-20] MEDS: SODIUM CHLORIDE 0.9% IV 1,000 ML 125 ML IV CONT ×3 (04:43→21:06)
[2020-03-20 05:54] LABS: Hemoglobin 9.9 g/dL (14.0-18.0); Mean Corpuscular HGB Conc 34.1 g/dl (32-36); Mean Corpuscular Hemoglobin 31.6 pg (26-34); Mean Corpuscular Volume 92.7 fl (80-100); Mean Platelet Volume 9.7 fl (7.4-10.4); Platelet Count Result 432 k/mm3 (150-375); Red Blood Count 3.13 M/mm3 (4.6-6.20); White Blood Count 8.6 K/mm3 (4.5-10.0)
[2020-03-20 06:11] LABS: Albumin Level 4.1 g/dL (3.5-5.1); Anion Gap 13 mmol/L (8-16); Blood Urea Nitrogen 40 mg/dL (9-20); Calcium 7.4 mg/dL (8.4-10.2); Carbon Dioxide 15 mmol/L (22-30); Chloride 106 mmol/L (98-107); Estimated CRCL calculation 15 ml/min; Estimated Glomerular Filt Rate 14; Glucose 109 mg/dL (75-110); Phosphorus 4.4 mg/dL (2.5-4.5); Potassium 3.8 mmol/L (3.4-5.0); Sodium 134 mmol/L (137-145)
[2020-03-20 06:18] LABS: Hemoglobin A1C 5.1 % (<5.7)
[2020-03-20 07:57] LABS: Glucose Point of Care 115 (65-105)
--- NOTE | 2020-03-20 08:23 | PM.CNNEP ---
Assessment and Plan Assessment and plan (1) NATALY (acute kidney injury): Code(s): N17.9 - Acute kidney failure, unspecified Status: Acute Assessment and Plan: The patient has acute kidney injury. He was told by Dr. Beltran that his creatinine had returned to normal. in the emergency room his creatinine was 5.7. After a little bit of fluid it is fallen to below 5. The patient had severe nausea vomiting and diarrhea. He is probably dehydrated. He could have other causes of kidney disease as well including allergic interstitial nephritis because he was on antibiotics last month. obstruction is always a possibility. I would think that glomerulonephritis would be less likely with this presentation. Infiltrative diseases can cause kidney disease as well but he has no symptoms of this. If the kidneys do not get better soon we can test for these. At this point will get an ultrasound of the kidneys urine electrolytes and eosinophils and continue IV fluids and see how he does. (2) Diarrhea: Code(s): R19.7 - Diarrhea, unspecified Status: Acute Assessment and Plan: The patient has nausea vomiting and diarrhea. There is some belly pain. C diff is being checked. (3) Lactic acid acidosis: Code(s): E87.2 - Acidosis Status: Acute Assessment and Plan: Lactic acid was high in the emergency room. It is already better at 1.5 today. (4) Hypertension: Qualifiers: Hypertension type: unspecified Qualified Code(s): I10 - Essential (primary) hypertension Code(s): I10 - Essential (primary) hypertension Status: Chronic Assessment and Plan: His blood pressure has been under pretty good control. It looks like his blood pressure meds are being held right now. We can fold these back in as we go If the blood pressure rises.. (5) COPD (chronic obstructive pulmonary disease): Qualifiers: COPD type: unspecified COPD Qualified Code(s): J44.9 - Chronic obstructive pulmonary disease, unspecified Code(s): J44.9 - Chronic obstructive pulmonary disease, unspecified Status: Chronic Assessment and Plan: Getting supportive care. History of Present Illness Reason for Consult Consult date: 03/20/20 Chief Complaint Chief complaint: nataly, dehydration History of Present Illness Narrative: Darrel is a very pleasant 59-year-old gentleman who has multiple medical problems including mild elevation of creatinine in the past. He sees Dr. beltran as an outpatient in [place]. He says that his creatinine was elevated a little bit but lately his creatinine has been normal. Patient also has hypertension, anemia, allergies the patient was in the hospital a couple of weeks ago for sepsis. He was placed on antibiotics and this improved. He was discharged. He felt well until a couple of days ago when he started having some nausea and poor appetite. Then he developed severe diarrhea. He went several times a day large volume. The fluid that he expelled was yellow or clear. Never black or bloody. He said it had some dark green particulate matter every once in a while. He had some belly discomfort from the nausea and the vomiting. He did not run any fevers that he knows of. He does not take any [id number] medications. He has not had any bloody foamy cloudy or smelly urine. No painful urination. No kidney stones or bladder infections. Review of Systems Constitutional: Constitutional: Reports no additional constitutional complaints Eyes: Eyes: Reports no additional eye complaints ENT: Reports system reviewed and no additional complaints, except as documented Cardiovascular: Cardiovascular: Reports no additional cardiovascular complaints Respiratory: Respiratory: Reports no additional respiratory complaints Gastrointestinal: Gastrointestinal: Reports no additional gastrointestinal complaints Genitourinary: Genitour
[2020-03-20 09:36] LABS: Creatinine Urine 197.8 mg/dL; Total Protein Urine Random 13 mg/dL
[2020-03-20 09:38] LABS: Sodium Urine Random 81 meq/L
[2020-03-20] MEDS: FERROUS SULFATE 324 MG TABLET PO (09:38)
[2020-03-20] MEDS: ASPIRIN 81 MG CHEWABLE TABLET PO (09:38)
[2020-03-20] MEDS: CYANOCOBALAMIN 1,000 MCG TABLET 1000 MCG PO (09:38)
[2020-03-20] MEDS: busPIRone HCL 5 MG TABLET PO ×2 (09:38→20:57)
[2020-03-20] MEDS: LORATADINE 10 MG TABLET PO (09:38)
[2020-03-20] MEDS: THIAMINE HCL 200 MG/2 ML VIAL 100 MG IV PUSH (09:39)
[2020-03-20] MEDS: PANTOPRAZOLE SODIUM IV 40 MG VIAL IV PUSH ×2 (09:39→20:57)
[2020-03-20] MEDS: ONDANSETRON INJ 4 MG/2 ML VIAL IV PUSH ×2 (09:46→17:00)
[2020-03-20] MEDS: SODIUM BICARBONATE TAB 650 MG TABLET 1300 MG PO ×3 (10:37→17:00)
[2020-03-20 12:09] LABS: Glucose Point of Care 120 (65-105)
[2020-03-20 12:10] LABS: Glucose Point of Care 131 (65-105)
--- NOTE | 2020-03-20 12:12 | P.PNIM_ITS ---
Progress Note: A&P Assessment and Plan (1) Acute renal failure: Qualifiers: Acute renal failure type: unspecified Qualified Code(s): N17.9 - Acute kidney failure, unspecified Code(s): N17.9 - Acute kidney failure, unspecified Status: Acute Assessment and Plan: Appears to be prerenal from diarrhea, nausea and vomiting as well as taking diuretics and Losartan vs the patients NVD being caused by uremic syndrome secondary to NATALY. * He received aggressive IV fluid hydration * BMP showed Cr improved from 5.7-4.4 today. * Does report more urine output today and is less dark in color. * UA showed cloudy urine, 2+ protein, 50+ hyaline casts which could represent injury from dehydration vs diuretic therapy * Nephrology was consulted and ordered a renal ultrasound, urine electrolytes and eosinophils, and continue IV fluid hydration. * Renal ultrasound showed unremarkable renal US with no stones, masses or hydronephrosis. Monitor urine output and renal function. avoid nephrotoxic agents, Renally dose medications. (2) Lactic acid acidosis: Code(s): E87.2 - Acidosis Status: Acute Assessment and Plan: Most likely from severe dehydration. No acute signs of infection at this time, urine appears to be contaminated. NVD most likely from uremic syndrome vs gastritis vs viral infection * Abd/Pelvis CT showed no acute findings. * Stool cultures sent along with C. diff testing. Continue monitoring. (3) Nausea & vomiting: Qualifiers: Vomiting Intractability: non-intractable Vomiting type: unspecified Qualified Code(s): R11.2 - Nausea with vomiting, unspecified Code(s): R11.2 - Nausea with vomiting, unspecified Status: Acute Assessment and Plan: No acute signs of infection at this time, urine appears to be contaminated. NVD most likely from uremic syndrome vs gastritis vs viral infection * Eating better, no nausea or vomiting just GERD like symptoms. * Abd/Pelvis CT showed no acute findings * Stool cultures sent along with C. diff testing. Continue monitoring. PRN Antiemetics. (4) Diarrhea: Code(s): R19.7 - Diarrhea, unspecified Status: Acute Assessment and Plan: No acute signs of infection at this time, urine appears to be contaminated. NVD most likely from uremic syndrome vs gastritis vs viral infection * Abd/Pelvis CT showed no acute findings * Stool cultures sent along with C. diff testing. Continue monitoring. PRN Antiemetics. (5) Gastroenteritis: Code(s): K52.9 - Noninfective gastroenteritis and colitis, unspecified Status: Acute Assessment and Plan: The patient continues to have diarrhea. * C. diff toxin and stool cultures and pending * Continue pain control as needed. * IV PPI continued IV hydration. supportive care. (6) Acute dehydration: Code(s): E86.0 - Dehydration Status: Acute Assessment and Plan: Continue IV hydration. Monitor urine output. (7) Alcohol abuse: Code(s): F10.10 - Alcohol abuse, uncomplicated Status: Chronic Assessment and Plan: CIWA-ND protocol. * Patients CIWA was 8 last night and this morning and he recived IV Ativan. * CIWA seems better now. * Continue Thiamine IV daily. Continue monitoring CIWA and educated on alcohol cessation.
--- NOTE | 2020-03-20 12:12 | PM.IMPN ---
Progress Note: A&P Assessment and Plan (1) Acute renal failure: Qualifiers: Acute renal failure type: unspecified Qualified Code(s): N17.9 - Acute kidney failure, unspecified Code(s): N17.9 - Acute kidney failure, unspecified Status: Acute Assessment and Plan: Appears to be prerenal from diarrhea, nausea and vomiting as well as taking diuretics and Losartan vs the patients NVD being caused by uremic syndrome secondary to NATALY. He received aggressive IV fluid hydration BMP showed Cr improved from 5.7-4.4 today. Does report more urine output today and is less dark in color. UA showed cloudy urine, 2+ protein, 50+ hyaline casts which could represent injury from dehydration vs diuretic therapy Nephrology was consulted and ordered a renal ultrasound, urine electrolytes and eosinophils, and continue IV fluid hydration. Renal ultrasound showed unremarkable renal US with no stones, masses or hydronephrosis. Monitor urine output and renal function. avoid nephrotoxic agents, Renally dose medications. (2) Lactic acid acidosis: Code(s): E87.2 - Acidosis Status: Acute Assessment and Plan: Most likely from severe dehydration. No acute signs of infection at this time, urine appears to be contaminated. NVD most likely from uremic syndrome vs gastritis vs viral infection Abd/Pelvis CT showed no acute findings. Stool cultures sent along with C. diff testing. Continue monitoring. (3) Nausea & vomiting: Qualifiers: Vomiting Intractability: non-intractable Vomiting type: unspecified Qualified Code(s): R11.2 - Nausea with vomiting, unspecified Code(s): R11.2 - Nausea with vomiting, unspecified Status: Acute Assessment and Plan: No acute signs of infection at this time, urine appears to be contaminated. NVD most likely from uremic syndrome vs gastritis vs viral infection Eating better, no nausea or vomiting just GERD like symptoms. Abd/Pelvis CT showed no acute findings Stool cultures sent along with C. diff testing. Continue monitoring. PRN Antiemetics. (4) Diarrhea: Code(s): R19.7 - Diarrhea, unspecified Status: Acute Assessment and Plan: No acute signs of infection at this time, urine appears to be contaminated. NVD most likely from uremic syndrome vs gastritis vs viral infection Abd/Pelvis CT showed no acute findings Stool cultures sent along with C. diff testing. Continue monitoring. PRN Antiemetics. (5) Gastroenteritis: Code(s): K52.9 - Noninfective gastroenteritis and colitis, unspecified Status: Acute Assessment and Plan: The patient continues to have diarrhea. C. diff toxin and stool cultures and pending Continue pain control as needed. IV PPI continued IV hydration. supportive care. (6) Acute dehydration: Code(s): E86.0 - Dehydration Status: Acute Assessment and Plan: Continue IV hydration. Monitor urine output. (7) Alcohol abuse: Code(s): F10.10 - Alcohol abuse, uncomplicated Status: Chronic Assessment and Plan: CIWA-AR protocol. Patients CIWA was 8 last night and this morning and he recived IV Ativan. CIWA seems better now. Continue Thiamine IV daily. Continue monitoring CIWA and educated on alcohol cessation. (8) Prediabetes: Code(s): R73.03 - Prediabetes Status: Chronic Assessment and Plan: Will check HgbA1c. Serum glucose was 131 Continue monitoring Q6hrs since he is not eating much. SSI. Hypoglycemic protocol in place. (9) Hyperlipidemia: Qualifiers: Hyperlipidemia type: unspe
[2020-03-20] MEDS: CALCIUM CARBONATE (TUMS) 500 MG (200 MG ELEMENTAL) PO (12:32)
--- NOTE | 2020-03-20 15:07 | WPDGIPROGNO ---
Progress Note: A&P Assessment and Plan (1) Nausea & vomiting: Qualifiers: Vomiting type: unspecified Vomiting Intractability: non-intractable Qualified Code(s): R11.2 - Nausea with vomiting, unspecified Code(s): R11.2 - Nausea with vomiting, unspecified Status: Acute Assessment and Plan: still with nausea and gerd symptoms, he came with dehydration and NATALY will proceed with egd tomorrow to assess if ulcers, esophagitis, etc also history of alcohol abuse and cocaine. continue with medical care, ppi (2) Acute renal failure: Qualifiers: Acute renal failure type: unspecified Qualified Code(s): N17.9 - Acute kidney failure, unspecified Code(s): N17.9 - Acute kidney failure, unspecified Status: Acute Assessment and Plan: iv fluids, nephrology on board multifactorial from dehydration, n/v, cocaine use, etc (3) Acute dehydration: Code(s): E86.0 - Dehydration Status: Acute (4) Diarrhea: Code(s): R19.7 - Diarrhea, unspecified Status: Acute Assessment and Plan: cdiff stool negative, other cultures pending. (5) GERD (gastroesophageal reflux disease): Qualifiers: Esophagitis presence: esophagitis presence not specified Qualified Code(s): K21.9 - Gastro-esophageal reflux disease without esophagitis Code(s): K21.9 - Gastro-esophageal reflux disease without esophagitis Status: Chronic Assessment and Plan: egd tomorrow (6) Alcohol abuse: Code(s): F10.10 - Alcohol abuse, uncomplicated Status: Chronic Assessment and Plan: [facility] protocol, risk for etoh withdrawal (7) Hepatitis C: Code(s): B19.20 - Unspecified viral hepatitis C without hepatic coma Status: Acute Assessment and Plan: it was treated previously hcv rna pending to confirm eradication Subjective Date/time seen: 03/20/20 15:07 Interval history: still with nausea and reflux sensation, tolerated diet but with dry heaves. He thinks that diarrhea slowing down. Review of Systems Review of Systems: All systems reviewed & are unremarkable except as noted in HPI and below Exam Const: General: comfortable and no acute distress HENMT: General nose exam: Normal nares present Eyes: General: appearance normal, both eyes and all related structures Neck: Neck: no JVD Resp: Auscultation: clear to auscultation bilaterally Cardio: Rate: regular rate Rhythm: regular rhythm GI: Inspection: non-distended GI Palp: Yes Soft to palpation, No Tenderness to palpation present (GI) and No Guarding due to palpation present (GI) Auscultation: normal bowel sounds Skin: General skin exam: normal color Neuro: Speech: normal speech Motor exam (neuro): Normal motor muscle tone present throughout Extrem: General: normal to inspection Psych: Affect: Anxious affect present Objective Data Vital Signs Vital Signs: Vital Signs - 24 hr 03/19/20 16:00 03/19/20 20:00 03/19/20 20:02 Temperature 98.0 F Pulse Rate 87 92 Respiratory Rate 16 Blood Pressure 120/76 128/70 Pulse Oximetry 99 03/19/20 20:29 03/19/20 23:55 03/19/20 23:57 Temperature 98.7 F Pulse Rate 88 97 Respiratory Rate 20 18 Blood Pressure 128/70 153/89 H 153/89 H Pulse Oximetry 99 100 03/20/20 00:21 03/20/20 04:02 03/20/20 04:40 Temperature Pulse Rate 94 89 Respiratory Rate Blood Pressure 147/102 H Pulse Oximetry 03/20/20 05:47 03/20/20 08:00 03/20/20 09:40 Temperature 98.2 F Pulse Rate 68 79 Respiratory Rate 14 Blood Pressure 136/70 125/85 Pulse Oximetry 99 03/20/20 10:00 03/20/20 12:00 Temperature 97.8 F Pulse Rate 93 91 Respiratory Rate 16 Blood Pressure 125/85 125/85 Pulse Oximetry 97 Intake/Output Intake/Output: Intake & Output 03/17/20 03/18/20 03/19/20 03/20/20 23:59 23:59 23:59 23:59 Intake Total 3680 2315 Output Total 150 300 Balance 3530 2014 Meds/Result
[2020-03-20] MEDS: MONTELUKAST SODIUM 10 MG TABLET PO (20:57)
[2020-03-21] VITALS (13 sets, daily range): BP systolic 117–155; BP diastolic 63–84; PULSE 63–103; RESP 14–18; TEMP 36.2–36.6; O2SAT 92–100
[2020-03-21] MEDS: SODIUM CHLORIDE 0.9% IV 1,000 ML 125 ML IV CONT ×3 (05:07→23:01)
[2020-03-21 06:12] LABS: Hematocrit 26.5 % (42.0-52.0); Mean Corpuscular Hemoglobin 32.4 pg (26-34); Mean Corpuscular Volume 95.3 fl (80-100); Mean Platelet Volume 9.6 fl (7.4-10.4); Platelet Count Result 369 k/mm3 (150-375); Red Blood Count 2.78 M/mm3 (4.6-6.20); Red Cell Distribution Width 11.9 % (11.5-14.5); White Blood Count 8.1 K/mm3 (4.5-10.0)
[2020-03-21 06:28] LABS: Albumin Level 3.7 g/dL (3.5-5.1); Anion Gap 10 mmol/L (8-16); Blood Urea Nitrogen 27 mg/dL (9-20); Calcium 6.8 mg/dL (8.4-10.2); Carbon Dioxide 17 mmol/L (22-30); Chloride 109 mmol/L (98-107); Estimated CRCL calculation 25 ml/min; Estimated Glomerular Filt Rate 27; Glucose 100 mg/dL (75-110); Phosphorus 3.1 mg/dL (2.5-4.5); Potassium 3.4 mmol/L (3.4-5.0); Sodium 136 mmol/L (137-145)
--- NOTE | 2020-03-21 10:51 | PC.NURSE ---
Report called to [facility].
--- NOTE | 2020-03-21 11:35 | PC.NURSE ---
To GI Lab via [facility].
[2020-03-21] MEDS: LACTATED RINGERS 1,000 ML 150 ML IV CONT (11:44)
--- NOTE | 2020-03-21 11:59 | WPDANESEPPF ---
Anes - Initial Pre Proc Eval Procedure: Operation Date: 03/21/20 12:00 Proposed Procedures p Esophagogastroduodenoscopy - Jose Concepcion MD Date/Time: 03/21/20 11:59 Surgeon: Aviva Ness PA-C Pre Op Diagnosis: cris, dehydration Patient Data Age: 59 Gender: M Height: 1.65 m Weight: 78.5 kg Last Vital Signs Temp 36.4 C 03/21/20 11:57 Pulse 76 03/21/20 11:57 Resp 18 03/21/20 11:57 BP 150/68 H 03/21/20 11:57 Pulse Ox 97 03/21/20 11:57 Allergies Allergy/AdvReac Type Severity Reaction Status Date / Time No Known Allergies Allergy Verified 03/18/20 21:46 Home Medications Medication Instructions Recorded Confirmed Type Symbicort 2 puff INHALATION BID 02/29/20 03/19/20 History albuterol sulfate 2 puff INHALATION PRN 02/29/20 03/19/20 History amlodipine 5 mg BYMOUTH DAILY 02/29/20 03/19/20 History fenofibrate 145 mg BYMOUTH DAILY 02/29/20 03/19/20 History lisinopril 20 mg BYMOUTH DAILY 02/29/20 03/19/20 History loratadine [Claritin] 10 mg PO DAILY 02/29/20 03/19/20 History metoprolol tartrate 25 mg BYMOUTH ONCE 02/29/20 03/19/20 History montelukast 10 mg BYMOUTH DAILY 02/29/20 03/19/20 History spironolactone 50 mg PO QAM 02/29/20 03/19/20 History cyanocobalamin (vitamin B-12) 1,000 mcg PO QAM 28 Days #28 tablet 03/04/20 03/19/20 Rx [Vitamin B-12] ferrous sulfate 325 mg PO DAILY 30 Days #30 tablet 03/04/20 03/19/20 Rx Aspirin Low Dose 81 mg PO ONCE 03/19/20 03/19/20 History Laboratory Tests 03/19/20 03/20/20 03/21/20 20:36 12:00 05:50 WBC RBC Hgb Hct MCV MCH MCHC RDW Plt Count MPV Sodium 136 mmol/L L mmol/L (137-145) Potassium 3.4 mmol/L mmol/L (3.4-5.0) Chloride 109 mmol/L H mmol/L (98-107) Carbon Dioxide 17 mmol/L L mmol/L (22-30) Anion Gap 10 mmol/L mmol/L (8-16) BUN 27 mg/dL H D mg/dL (9-20) Creatinine 2.50 mg/dL H mg/dL (0.7-1.3) Estim Creat Clear Calc 25 ml/min ml/min Estimated GFR 27 L (59 - ) Glucose 100 mg/dL mg/dL (75-110) POC Capillary Glucose 120 mg/dl H mg/dl 131 mg/dl H mg/dl (65-105) (65-105) Calcium 6.8 mg/dL L mg/dL (8.4-10.2) Phosphorus 3.1 mg/dL mg/dL (2.5-4.5) Albumin 3.7 g/dL g/dL (3.5-5.1) 03/21/20 05:50 WBC 8.1 K/mm3 K/mm3 (4.5-10.0) RBC 2.78 M/mm3 L M/mm3 (4.6-6.20) Hgb 9.0 g/dL L g/dL (14.0-18.0) Hct 26.5 % L % (42.0-52.0) MCV 95.3 fl fl (80-100) MCH 32.4 pg pg (26-34) MCHC 34.0 g/dl g/dl (32-36) RDW 11.9 % % (11.5-14.5) Plt Count 369 k/mm3 k/mm3 (150-375) MPV 9.6 fl fl (7.4-10.4) Sodium Potassium Chloride Carbon Dioxide Anion Gap BUN Creatinine Estim Creat Clear Calc Estimated GFR Glucose POC Capillary Glucose Calcium Phosphorus Albumin Patient hx anesthesia problems: none Family hx anesthesia problems: none PMFSH Past Medical History Medical History COPD (chronic obstructive pulmonary disease) Diarrhea GERD (gastroesophageal reflux disease) Hepatitis C History of anemia Hyperlipidemia Hypertension Surgical History Surgical History H/O shoulder surgery History of laparoscopic cholecystectomy Hx of appendectomy Family History Family History Father Diabetes mellitus Hypertension Mother Hypertension Social History Social History Smoking packs per day: 1 Smoking cigarettes per day: 20.0 Years smoked: 44 Smoking pack-years: 44.00 Smoking status: Forme
--- NOTE | 2020-03-21 13:00 | PC.NURSE ---
Return from GI Lab via stretcher.
[2020-03-21] MEDS: CALCIUM CARBONATE (TUMS) 500 MG (200 MG ELEMENTAL) PO ×2 (13:24→21:08)
[2020-03-21] MEDS: LORATADINE 10 MG TABLET PO (13:24)
[2020-03-21] MEDS: ASPIRIN 81 MG CHEWABLE TABLET PO (13:24)
[2020-03-21] MEDS: FERROUS SULFATE 324 MG TABLET PO (13:25)
[2020-03-21] MEDS: busPIRone HCL 5 MG TABLET PO ×2 (13:25→21:07)
[2020-03-21] MEDS: CYANOCOBALAMIN 1,000 MCG TABLET 1000 MCG PO (13:25)
[2020-03-21] MEDS: THIAMINE HCL 200 MG/2 ML VIAL 100 MG IV PUSH (13:26)
[2020-03-21] MEDS: PANTOPRAZOLE SODIUM IV 40 MG VIAL IV PUSH ×2 (13:27→21:07)
[2020-03-21] MEDS: SODIUM BICARBONATE TAB 650 MG TABLET 1300 MG PO ×2 (13:27→17:10)
--- NOTE | 2020-03-21 16:44 | PM.IMPN ---
Progress Note: A&P Assessment and Plan (1) Acute renal failure: Qualifiers: Acute renal failure type: unspecified Qualified Code(s): N17.9 - Acute kidney failure, unspecified Code(s): N17.9 - Acute kidney failure, unspecified Status: Acute Assessment and Plan: Appears to be prerenal from diarrhea, nausea and vomiting as well as taking diuretics and Losartan vs the patients NVD being caused by uremic syndrome secondary to NATALY. He received aggressive IV fluid hydration BMP showed Cr improved from 4.4-2.5 today. Does report more urine output today and is less dark in color. UA showed cloudy urine, 2+ protein, 50+ hyaline casts which could represent injury from dehydration vs diuretic therapy Renal ultrasound showed unremarkable renal US with no stones, masses or hydronephrosis. Nephrology was consulted and ordered urine electrolytes and eosinophils, and continue IV fluid hydration. Monitor urine output and renal function. avoid nephrotoxic agents, Renally dose medications. (2) Lactic acid acidosis: Code(s): E87.2 - Acidosis Status: Acute Assessment and Plan: Most likely from severe dehydration. No acute signs of infection at this time, urine appears to be contaminated. NVD most likely from uremic syndrome vs gastritis vs viral infection Abd/Pelvis CT showed no acute findings. Stool cultures were negative on C. diff, Shiga toxin and pending Campylobacter and Salmonella/Shigella He also states he has chronic loose stools since his gallbladder was removed having 4-6 bowel movements today and upper his of 10 bowel movements a day depending on what he eats. Continue monitoring. (3) Nausea & vomiting: Qualifiers: Vomiting type: unspecified Vomiting Intractability: non-intractable Qualified Code(s): R11.2 - Nausea with vomiting, unspecified Code(s): R11.2 - Nausea with vomiting, unspecified Status: Acute Assessment and Plan: No acute signs of infection at this time, urine appears to be contaminated. NVD most likely from uremic syndrome vs gastritis vs viral infection Eating better, no nausea or vomiting just GERD like symptoms. Abd/Pelvis CT showed no acute findings GI specialists is going to perform EGD today which we are pending. Continue monitoring. PRN Antiemetics. (4) Diarrhea: Code(s): R19.7 - Diarrhea, unspecified Status: Acute Assessment and Plan: No acute signs of infection at this time, urine appears to be contaminated. NVD most likely from uremic syndrome vs gastritis vs viral infection Abd/Pelvis CT showed no acute findings Could be chronic or worsening due to GI upset versus NATALY, it is improving over time. Continue monitoring. PRN Antiemetics. (5) Gastroenteritis: Code(s): K52.9 - Noninfective gastroenteritis and colitis, unspecified Status: Acute Assessment and Plan: The patient continues to have diarrhea. IV PPI continued GI is going to undergo an EGD today to see if he has any abnormality for his symptoms. IV hydration. supportive care. (6) Acute dehydration: Code(s): E86.0 - Dehydration Status: Acute Assessment and Plan: Continue IV hydration. Monitor urine output. (7) Alcohol abuse: Code(s): F10.10 - Alcohol abuse, uncomplicated Status: Chronic Assessment and Plan: CIWA-AR protocol. Patients CIWA was 0 CIWA seems better now. Continue Thiamine IV daily. Continue monitoring CIWA and educated on alcohol cessation. (8) Prediabetes: Code(s): R73.03 - Prediabetes Status: Chronic Assessment and Plan: HgbA1c was 5.1% Serum glucose was 100
--- NOTE | 2020-03-21 17:24 | PM.PNNEP ---
Progress Note: A&P Assessment and Plan (1) NATALY (acute kidney injury): Code(s): N17.9 - Acute kidney failure, unspecified Status: Acute Assessment and Plan: The patient has acute kidney injury. He was told by Dr. Beltran that his creatinine had returned to normal. in the emergency room his creatinine was 5.7. After a little bit of fluid it is fallen to below 5. renal ultrasound is okay. Urine electrolytes are non pre renal. However he is on spironolactone. this may give false negative results. Stool cultures negative so far. The patient had severe nausea vomiting and diarrhea. He is probably dehydrated. Creatinine is improving quickly with hydration. Continue IV fluids for now. (2) Diarrhea: Code(s): R19.7 - Diarrhea, unspecified Status: Acute Assessment and Plan: The patient has nausea vomiting and diarrhea. This has all improved. (3) Lactic acid acidosis: Code(s): E87.2 - Acidosis Status: Acute Assessment and Plan: Resolved (4) Hypertension: Qualifiers: Hypertension type: unspecified Qualified Code(s): I10 - Essential (primary) hypertension Code(s): I10 - Essential (primary) hypertension Status: Chronic Assessment and Plan: blood pressures have been good. (5) COPD (chronic obstructive pulmonary disease): Qualifiers: COPD type: unspecified COPD Qualified Code(s): J44.9 - Chronic obstructive pulmonary disease, unspecified Code(s): J44.9 - Chronic obstructive pulmonary disease, unspecified Status: Chronic Assessment and Plan: Getting supportive care. Subjective Date/time seen: 03/21/20 17:24 Interval history: Patient is alert. He feels a little bit better. Diarrhea is gone. Making urine. Review of Systems Cardiovascular: Cardiovascular: Reports no additional cardiovascular complaints Respiratory: Respiratory: Reports no additional respiratory complaints Gastrointestinal: Gastrointestinal: Reports no additional gastrointestinal complaints Genitourinary: Genitourinary: Reports no additional male genitourinary complaints Exam Narrative: Exam Narrative: Well developed well-nourished gentleman lying in hospital bed in no acute distress Lungs are clear Heart regular rate and rhythm no rub or gallop Abdomen bowel sounds positive soft nontender Extremities show no edema Skin no rash Objective Data Vital Signs Vital Signs: Vital Signs - 24 hr 03/20/20 20:14 03/20/20 21:10 03/21/20 00:06 Temperature 37.4 C Pulse Rate 83 Respiratory Rate 14 Blood Pressure 154/83 H 154/83 H 153/82 H Pulse Oximetry 100 03/21/20 04:30 03/21/20 05:17 03/21/20 09:32 Temperature 36.6 C Pulse Rate 103 H Respiratory Rate 16 16 Blood Pressure 153/82 H 155/84 H Pulse Oximetry 93 92 03/21/20 10:01 03/21/20 11:57 03/21/20 12:35 Temperature 36.4 C 36.4 C Pulse Rate 74 76 71 Respiratory Rate 16 18 16 Blood Pressure 130/63 150/68 H 117/63 Pulse Oximetry 98 97 99 03/21/20 12:45 03/21/20 12:55 03/21/20 13:15 Temperature 36.4 C Pulse Rate 64 63 74 Respiratory Rate 14 14 16 Blood Pressure 127/64 129/66 138/63 Pulse Oximetry 100 100 100 03/21/20 14:09 Temperature 36.2 C L Pulse Rate 80 Respiratory Rate 16 Blood Pressure 146/66 H Pulse Oximetry 100 Intake/Output Intake/Output: Intake & Output 03/18/20 03/19/20 03/20/20 03/21/20 23:59 23:59 23:59 23:59 Intake Total 3680 3995 2400 Output Total 150 1400 2000 Balance 2465 9878 400 Meds/Results Medications: Active Medications Generic Name Dose Route Start Last Admin Trade Name Freq PRN Reason Stop Dose Admin Albuterol 2.5 mg 03/19/20 06:14 Albuterol Sulf Neb 2.5mg/0.5ml INHALATION Q6HRT PRN Shortness Of Breath Amlodipine Besylate 5 mg 03/19/20 09:00 03/19/20 11:32 Norvasc BY MOUTH 04/18/20 09:01 Not Given DAILY RANDI Asp
[2020-03-21] MEDS: MONTELUKAST SODIUM 10 MG TABLET PO (21:07)
[2020-03-22 06:06] VITALS: BP 153/80; PULSE 76; RESP 16; TEMP 36.6; O2SAT 99
[2020-03-22 06:15] LABS: Hematocrit 23.5 % (42.0-52.0); Hemoglobin 8.2 g/dL (14.0-18.0)
[2020-03-22 06:38] LABS: Albumin Level 3.5 g/dL (3.5-5.1); Anion Gap 7 mmol/L (8-16); Blood Urea Nitrogen 17 mg/dL (9-20); Calcium 6.5 mg/dL (8.4-10.2); Carbon Dioxide 21 mmol/L (22-30); Chloride 109 mmol/L (98-107); Estimated CRCL calculation 39 ml/min; Estimated Glomerular Filt Rate 44; Glucose 98 mg/dL (75-110); Phosphorus 2.9 mg/dL (2.5-4.5); Potassium 3.5 mmol/L (3.4-5.0); Sodium 137 mmol/L (137-145)
[2020-03-22] MEDS: SODIUM CHLORIDE 0.9% IV 1,000 ML 125 ML IV CONT (08:26)
[2020-03-22] MEDS: busPIRone HCL 5 MG TABLET PO (08:27)
[2020-03-22] MEDS: LORATADINE 10 MG TABLET PO (08:27)
[2020-03-22] MEDS: CYANOCOBALAMIN 1,000 MCG TABLET 1000 MCG PO (08:27)
[2020-03-22] MEDS: CALCIUM CARBONATE (TUMS) 500 MG (200 MG ELEMENTAL) PO ×2 (08:27→13:50)
[2020-03-22] MEDS: ASPIRIN 81 MG CHEWABLE TABLET PO (08:27)
[2020-03-22] MEDS: THIAMINE HCL 200 MG/2 ML VIAL 100 MG IV PUSH (08:27)
[2020-03-22] MEDS: PANTOPRAZOLE SODIUM IV 40 MG VIAL IV PUSH (08:28)
[2020-03-22] MEDS: SODIUM BICARBONATE TAB 650 MG TABLET 1300 MG PO ×3 (08:28→17:00)
[2020-03-22] MEDS: FERROUS SULFATE 324 MG TABLET PO (08:29)
--- NOTE | 2020-03-22 09:03 | WPDGIPROGNO ---
Progress Note: A&P Assessment and Plan (1) Erosive gastritis: Code(s): K29.60 - Other gastritis without bleeding Status: Acute Assessment and Plan: found yesterday, biopsies pending. Moderate erosive gastritis partially can explain symptoms he is doing much better now, continue with ppi bid and avoid using any more alcohol he can follow up office in 2-3 weeks he can go home by gi standpoint (2) Nausea & vomiting: Qualifiers: Vomiting type: unspecified Vomiting Intractability: non-intractable Qualified Code(s): R11.2 - Nausea with vomiting, unspecified Code(s): R11.2 - Nausea with vomiting, unspecified Status: Acute Assessment and Plan: resolved, tolerating diet (3) Acute renal failure: Qualifiers: Acute renal failure type: unspecified Qualified Code(s): N17.9 - Acute kidney failure, unspecified Code(s): N17.9 - Acute kidney failure, unspecified Status: Acute Assessment and Plan: improved after medical treatment, probably from n/v and diarrhea now resolved. creat down to 1.6 (4) Acute dehydration: Code(s): E86.0 - Dehydration Status: Acute (5) Drug use disorder: Code(s): F19.90 - Other psychoactive substance use, unspecified, uncomplicated Status: Chronic Assessment and Plan: + cocaine (6) Alcohol abuse: Code(s): F10.10 - Alcohol abuse, uncomplicated Status: Chronic Assessment and Plan: ciwa protocol, less anxious (7) Hepatitis C: Code(s): B19.20 - Unspecified viral hepatitis C without hepatic coma Status: Acute Assessment and Plan: treated, HCV RNA pending to document eradication. (8) Normocytic anemia: Code(s): D64.9 - Anemia, unspecified Status: Chronic Assessment and Plan: he was hemoconcentrated on arrival from dehydration, hb down to 8 (close to baseline during previous presentation) follow up office in 2-3 weeks Subjective Date/time seen: 03/22/20 09:03 Interval history: he denies any more diarrhea or nausea, had breakfast today and he is feeling like going home today Review of Systems Review of Systems: All systems reviewed & are unremarkable except as noted in HPI and below Exam Const: General: comfortable and no acute distress HENMT: General nose exam: Normal nares present Eyes: General: appearance normal, both eyes and all related structures Neck: Neck: no JVD Resp: Auscultation: clear to auscultation bilaterally Cardio: Rate: regular rate Rhythm: regular rhythm GI: Inspection: non-distended GI Palp: Yes Soft to palpation, No Tenderness to palpation present (GI) and No Guarding due to palpation present (GI) Auscultation: normal bowel sounds Skin: General skin exam: normal color Neuro: General: gait normal Speech: normal speech Extrem: General: normal to inspection Psych: Mental Status: mental status grossly normal Objective Data Vital Signs Vital Signs: Vital Signs - 24 hr 03/21/20 09:32 03/21/20 10:01 03/21/20 11:57 Temperature 97.6 F 97.6 F Pulse Rate 74 76 Respiratory Rate 16 16 18 Blood Pressure 130/63 150/68 H Pulse Oximetry 92 98 97 03/21/20 12:35 03/21/20 12:45 03/21/20 12:55 Temperature Pulse Rate 71 64 63 Respiratory Rate 16 14 14 Blood Pressure 117/63 127/64 129/66 Pulse Oximetry 99 100 100 03/21/20 13:15 03/21/20 14:09 03/21/20 20:00 Temperature 97.6 F 97.2 F L Pulse Rate 74 80 80 Respiratory Rate 16 16 16 Blood Pressure 138/63 146/66 H Pulse Oximetry 100 100 100 03/21/20 22:06 03/22/20 06:06 Temperature 97.8 F 97.8 F Pulse Rate 67 76 Respiratory Rate 17 16 Blood Pressure 154/69 H 153/80 H Pulse Oximetry 99 99 Intake/Output Intake/Output: Intake & Output 03/19/20 03/20/20 03/21/20 03/22/20 23:59 23:59 23:59 23:59 Intake Total 3680 3995 3640 1690 Output Total 150 1400 2200 1375 Balance 3530 2595 1440 315 Meds/Results Medications: Activ
[2020-03-22 10:00] LABS: Magnesium 0.3 mg/dL (1.6-2.3)
[2020-03-22 10:06] LABS: Transferrin 210 mg/dL (206-381)
[2020-03-22 10:08] LABS: Iron 121 ug/dL (49-181)
[2020-03-22 10:17] LABS: Percent Iron Saturation 38 % (20-50)
[2020-03-22] MEDS: amLODIPine BESYLATE 5 MG TABLET BY MOUTH (11:06)
[2020-03-22 12:00] VITALS: BP 155/78; PULSE 93; RESP 18; TEMP 36.3; O2SAT 100
[2020-03-22 14:28] LABS: Hematocrit 24.9 % (42.0-52.0); Hemoglobin 8.5 g/dL (14.0-18.0)
[2020-03-22 14:39] LABS: Magnesium 2.2 mg/dL (1.6-2.3); Potassium 3.5 mmol/L (3.4-5.0)
--- NOTE | 2020-03-22 16:13 | P.DS_ITS ---
DS: Admitting Diagnosis Admitting Diagnosis Admitting Diagnosis: nataly, dehydration DS: Discharge Diagnosis Discharge Diagnosis (1) Acute renal failure: Qualifiers: Acute renal failure type: unspecified Qualified Code(s): N17.9 - Acute kidney failure, unspecified Code(s): N17.9 - Acute kidney failure, unspecified Status: Acute Assessment and Plan: Appears to be prerenal from diarrhea, nausea and vomiting as well as taking diuretics and Losartan vs the patients NVD being caused by uremic syndrome secondary to NATALY. * He received aggressive IV fluid hydration * BMP showed Cr improved from 2.5 to 1.6 today. * Does report more urine output today and is less dark in color. * UA showed cloudy urine, 2+ protein, 50+ hyaline casts which could represent injury from dehydration vs diuretic therapy * Renal ultrasound showed unremarkable renal US with no stones, masses or hydronephrosis. * Nephrology was consulted and feels it is all related to dehydration. * Will have the patient check a BMP in 1 week and follow-up with his athletics teacher in [place]. Told to continue drinking plenty of fluids to continue hydrating his kidneys. * Will continue his lisinopril at this time but I will actually hold his spironolactone. He is euvolemic without any edema since arrival. He can follow-up with his primary care provider and athletics teacher to see if this medication needs to be restarted. (2) Lactic acid acidosis: Code(s): E87.2 - Acidosis Status: Acute Assessment and Plan: Most likely from severe dehydration. No acute signs of infection at this time, urine appears to be contaminated. NVD most likely from uremic syndrome vs gastritis vs viral infection (3) Nausea & vomiting: Qualifiers: Vomiting Intractability: non-intractable Vomiting type: unspecified Qualified Code(s): R11.2 - Nausea with vomiting, unspecified Code(s): R11.2 - Nausea with vomiting, unspecified Status: Acute Assessment and Plan: No acute signs of infection at this time, urine appears to be contaminated. NVD most likely from uremic syndrome vs gastritis vs viral infection * Eating better, no nausea or vomiting. Denies any GERD like symptoms since EGD yesterday. * Abd/Pelvis CT showed no acute findings * GI specialists is going to perform EGD showed gastritis, recommended continue taking PPI twice a day, avoid NSAIDs and alcohol use. * Dr. Farmer would like for him to follow-up in the office in 2-3 weeks further evaluation. (4) Diarrhea: Code(s): R19.7 - Diarrhea, unspecified Status: Acute Assessment and Plan: No acute signs of infection at this time, urine appears to be contaminated. NVD most likely from uremic syndrome vs gastritis vs viral infection * Abd/Pelvis CT showed no acute findings * Could be chronic or worsening due to GI upset versus NATALY, it is improving over time. * Stool cultures were negative on C. diff, Shiga toxin and pending Campylobacter and Salmonella/Shigella * He also states he has chronic loose stools since his gallbladder was removed having 4-6 bowel movements today and upper his of 10 bowel movements a day depending on what he eats. (5) Gastroenteritis: Code(s): K52.9 - Noninfective gastroenteritis and colitis, unspecified Status: Acute Assessment and Plan: The patient continues to have diarrhea. * Gastritis seen on EGD, con
--- NOTE | 2020-03-22 16:13 | PM.DS ---
DS: Admitting Diagnosis Admitting Diagnosis Admitting Diagnosis: nataly, dehydration DS: Discharge Diagnosis Discharge Diagnosis (1) Acute renal failure: Qualifiers: Acute renal failure type: unspecified Qualified Code(s): N17.9 - Acute kidney failure, unspecified Code(s): N17.9 - Acute kidney failure, unspecified Status: Acute Assessment and Plan: Appears to be prerenal from diarrhea, nausea and vomiting as well as taking diuretics and Losartan vs the patients NVD being caused by uremic syndrome secondary to NATALY. He received aggressive IV fluid hydration BMP showed Cr improved from 2.5 to 1.6 today. Does report more urine output today and is less dark in color. UA showed cloudy urine, 2+ protein, 50+ hyaline casts which could represent injury from dehydration vs diuretic therapy Renal ultrasound showed unremarkable renal US with no stones, masses or hydronephrosis. Nephrology was consulted and feels it is all related to dehydration. Will have the patient check a BMP in 1 week and follow-up with his biomedical equipment tech in [place]. Told to continue drinking plenty of fluids to continue hydrating his kidneys. Will continue his lisinopril at this time but I will actually hold his spironolactone. He is euvolemic without any edema since arrival. He can follow-up with his primary care provider and biomedical equipment tech to see if this medication needs to be restarted. (2) Lactic acid acidosis: Code(s): E87.2 - Acidosis Status: Acute Assessment and Plan: Most likely from severe dehydration. No acute signs of infection at this time, urine appears to be contaminated. NVD most likely from uremic syndrome vs gastritis vs viral infection (3) Nausea & vomiting: Qualifiers: Vomiting Intractability: non-intractable Vomiting type: unspecified Qualified Code(s): R11.2 - Nausea with vomiting, unspecified Code(s): R11.2 - Nausea with vomiting, unspecified Status: Acute Assessment and Plan: No acute signs of infection at this time, urine appears to be contaminated. NVD most likely from uremic syndrome vs gastritis vs viral infection Eating better, no nausea or vomiting. Denies any GERD like symptoms since EGD yesterday. Abd/Pelvis CT showed no acute findings GI specialists is going to perform EGD showed gastritis, recommended continue taking PPI twice a day, avoid NSAIDs and alcohol use. Dr. Farmer would like for him to follow-up in the office in 2-3 weeks further evaluation. (4) Diarrhea: Code(s): R19.7 - Diarrhea, unspecified Status: Acute Assessment and Plan: No acute signs of infection at this time, urine appears to be contaminated. NVD most likely from uremic syndrome vs gastritis vs viral infection Abd/Pelvis CT showed no acute findings Could be chronic or worsening due to GI upset versus NATALY, it is improving over time. Stool cultures were negative on C. diff, Shiga toxin and pending Campylobacter and Salmonella/Shigella He also states he has chronic loose stools since his gallbladder was removed having 4-6 bowel movements today and upper his of 10 bowel movements a day depending on what he eats. (5) Gastroenteritis: Code(s): K52.9 - Noninfective gastroenteritis and colitis, unspecified Status: Acute Assessment and Plan: The patient continues to have diarrhea. Gastritis seen on EGD, continue PPI, avoid NSAIDs and alcohol use. Follow-up with GI in 2-3 weeks. (6) Acute dehydration: Code(s): E86.0 - Dehydration Status: Acute Assessment and Plan: Continue IV hydration. Monitor urine output. (7) Alcohol abuse: Code(s): F10.10 - Alcohol abuse, uncomplicated
--- NOTE | 2020-03-22 16:19 | PM.PNNEP ---
Progress Note: A&P Assessment and Plan (1) NATALY (acute kidney injury): Code(s): N17.9 - Acute kidney failure, unspecified Status: Acute Assessment and Plan: The patient has acute kidney injury. He was told by Dr. Beltran that his creatinine had returned to normal. in the emergency room his creatinine was 5.7. After a IVFs his creatinine is down to 1.5 imnproving prerenal azotemia. Okay for discharge He can followup with Dr Kahn. (2) Diarrhea: Code(s): R19.7 - Diarrhea, unspecified Status: Acute Assessment and Plan: resolved (3) Lactic acid acidosis: Code(s): E87.2 - Acidosis Status: Acute Assessment and Plan: Resolved (4) Hypertension: Qualifiers: Hypertension type: unspecified Qualified Code(s): I10 - Essential (primary) hypertension Code(s): I10 - Essential (primary) hypertension Status: Chronic Assessment and Plan: blood pressures are a bit high. restart metoprolol. restart the rest as an outpatient stay off diuretics. for now until you see the doctor (5) COPD (chronic obstructive pulmonary disease): Qualifiers: COPD type: unspecified COPD Qualified Code(s): J44.9 - Chronic obstructive pulmonary disease, unspecified Code(s): J44.9 - Chronic obstructive pulmonary disease, unspecified Status: Chronic Assessment and Plan: Getting supportive care. Subjective Date/time seen: 03/22/20 16:19 Interval history: Patient is alert. He feels really good eager for discharge Diarrhea is gone. eating well Making urine. Review of Systems Cardiovascular: Cardiovascular: Reports no additional cardiovascular complaints Respiratory: Respiratory: Reports no additional respiratory complaints Gastrointestinal: Gastrointestinal: Reports no additional gastrointestinal complaints Genitourinary: Genitourinary: Reports no additional male genitourinary complaints Exam Narrative: Exam Narrative: Well developed well-nourished gentleman lying in hospital bed in no acute distress Lungs are clear bilaterally Heart regular rate and rhythm no rub or gallop Abdomen bowel sounds positive soft nontender Extremities show no edema Skin no rash or sq nodules Objective Data Vital Signs Vital Signs: Vital Signs - 24 hr 03/21/20 20:00 03/21/20 22:06 03/22/20 06:06 Temperature 36.6 C 36.6 C Pulse Rate 80 67 76 Respiratory Rate 16 17 16 Blood Pressure 154/69 H 153/80 H Pulse Oximetry 100 99 99 03/22/20 12:00 Temperature 36.3 C L Pulse Rate 93 Respiratory Rate 18 Blood Pressure 155/78 H Pulse Oximetry 100 Intake/Output Intake/Output: Intake & Output 03/19/20 03/20/20 03/21/20 03/22/20 23:59 23:59 23:59 23:59 Intake Total 3680 3995 3640 1930 Output Total 150 1400 2200 1575 Balance 3530 2595 1440 355 Meds/Results Medications: Active Medications Generic Name Dose Route Start Last Admin Trade Name Freq PRN Reason Stop Dose Admin Albuterol 2.5 mg 03/19/20 06:14 Albuterol Sulf Neb 2.5mg/0.5ml INHALATION Q6HRT PRN Shortness Of Breath Amlodipine Besylate 5 mg 03/19/20 09:00 03/22/20 11:06 Norvasc BY MOUTH 04/18/20 09:01 5 mg DAILY RANDI Administration Aspirin 81 mg 03/19/20 11:00 03/22/20 08:27 Aspirin Chewable PO 04/18/20 11:01 81 mg DAILY RANDI Administration Buspirone HCl 5 mg 03/19/20 21:00 03/22/20 08:27 Buspar PO 5 mg Q12HR RANDI Administration Calcium Carbonate 200 mg 03/20/20 12:13 03/20/20 12:32 Tums PO 200 mg Q6H PRN Administration Indigestion Calcium Carbonate 200 mg 03/21/20 08:25 03/22/20 13:50 Tums PO 200 mg Q6H RANDI Administration Cyanocobalamin 1,000 mcg 03/20/20 09:00 03/22/20 08:27 Vitamin B-12 Tab PO 1,000 mcg QAM RANDI Administration Dextrose 12.5 gm 03/19/20 18:31 Dextrose 50% Syringe IV PUSH PRN PRN Hypoglycemia Protocol F
[2020-03-23 15:21] LABS: Hepatitis C RNA, Quant PCR <15 IU/mL
== END 2020-03-22 18:10 | disposition home or self-care (01) | DRG 241 ==
LOC: ANHED 03-19 00:05 → ANH3MED 03-19 03:49
PROVIDERS: Emergency Medicine; Internal Medicine Gastroenterology; Internal Medicine Nephrology; Admitting Provider Family Medicine; Emergency Provider Emergency Medicine; Visit Provider Physician Assistant
PROC: 0DJ08ZZ Inspection of Upper Intestinal Tract, Via Natural or Artificial Opening Endoscopic (ICD-10-PCS; CPT 43235; principal; 2020-03-21 12:00)
DX: K29.60 Other gastritis without bleeding (principal); N17.9 Acute kidney failure, unspecified; E87.2 Acidosis; E83.42 Hypomagnesemia; E86.0 Dehydration; K21.9 Gastro-esophageal reflux disease without esophagitis; F19.90 Other psychoactive substance use, unspecified, uncomplicated; F10.10 Alcohol abuse, uncomplicated; B19.20 Unspecified viral hepatitis C without hepatic coma; R73.03 Prediabetes; J44.9 Chronic obstructive pulmonary disease, unspecified; E78.5 Hyperlipidemia, unspecified; I10 Essential (primary) hypertension; Z79.899 Other long term (current) drug therapy; Z87.891 Personal history of nicotine dependence
CPT/HCPCS: 36415; 74176; 76775; 80053; 80069; 80307; 81001; 82550; 82570; 82607; 82728; 82746; 83036; 83540; 83550; 83605; 83690; 83735; 84132; 84156; 84300; 84466; 85014; 85018; 85025; 85027; 85999; 87045; 87046; 87086; 87088; 87324; 87427; 87522; 88305; 89055; 93005; 96374; 96375; 99285; A9270; C9113; J2060; J2405; J2550; J2704; J3411; J3475; J7030; J7060; J7120

== ENCOUNTER 2020-06-25 12:35 | Observation (INO) | payer OTHER, SELFPAY ==
[2020-06-25] VITALS (31 sets, daily range): BP systolic 128–210; BP diastolic 74–108; PULSE 87–137; RESP 15–28; TEMP 36.7–36.9; O2SAT 90–100; BMI 30.8
--- NOTE | ~2020-06-25 | CT_ITS ---
EXAMINATION: CTA brain carotid EXAM DATE: 06/25/2020 14:24 INDICATION: Dizziness . TECHNIQUE: Noncontrast head CT. Spiral CTA of the carotid arteries was performed with intravenous i njection 100 cc of Omnipaque 350. Axial, coronal, sagittal reformatted images reviewed. Additional r eformatted images created on dedicated 3-D workstation. NASCET comparable standard used to assess th e degree of arterial stenosis. Spiral CT angiogram cerebral arteries performed with the same intrave nous injection of contrast. Source images of the brain CTA transferred to dedicated workstation for 3 -D rotational image creation. Coronal, sagittal maximum intensity pixel images also reviewed. The d ose-length product (DLP) for this examination was 1669.90 mGy-cm. The exposure was tailored accordi ng to patient size, and iterative reconstruction (ASIR) was used as additional dose reduction techniq ue. There is no prior study for comparison. FINDINGS: There is mild bilateral carotid bulb arterial sclerosis with 0% stenosis bilaterally. Mild bilateral carotid siphon arterial sclerosis with no more than mild stenosis. The left vertebral arter y is dominant. There is no carotid or vertebral basilar arterial dissection or fibromuscular dysplas ia. There are no cerebral artery aneurysms. There is symmetric cerebral artery arborization. The sagi ttal, transverse and sigmoid sinuses enhance normally, no venous sinus thrombosis. Internal cerebral veins also enhance normally. There is no acute intraparenchymal hemorrhage. No evidence of intraparenchymal brain mass lesion. N o evidence of acute infarction. There is no mass effect or midline shift. There is no obstructive hyd rocephalus suspected. There are no extra-axial collections. There are no calvarial acute fractures. Bilateral cataract surgery. IMPRESSION: 1. No acute cervical or intracranial findings. 2. Bilateral carotid bulb 0% stenosis. Reviewed, dictated and finalized at location B. MANAGER
--- NOTE | ~2020-06-25 | MR_ITS ---
EXAMINATION: MR brain/brain stem wo/w con EXAM DATE: 06/26/2020 14:34 INDICATION: Dizziness, seizure. Speech impairment, nausea and vomiting. TECHNIQUE: Magnetic resonance imaging (MRI) of the brain/brain stem obtained without contrast. Sagit alicia T1, axial diffusion, gradient echo (T2*), T1, T2, FLAIR sequences obtained. Patient was then inj ected with 15 cc intravenous Multihance contrast. Axial and coronal postcontrast T1 weighted sequence s obtained. Correlation is made to CTA brain/carotid yesterday. FINDINGS: There are no areas of restricted diffusion to suggest acute infarction. There is no acute hemorrhage seen on the T2*, a hemosiderin sensitive sequence. No intraparenchymal brain mass. The ve ntricles are normal in size. There are no extra-axial collections. Flow voids are seen in the cereb ral arteries on the T2-weighted sequences consistent with their expected patency. The orbits are unr emarkable. Soft tissue is unremarkable. There are no areas of abnormal enhancement on the postcont rast images. IMPRESSION: 1. Unremarkable brain MRI examination. Reviewed, dictated and finalized at location B. [facility]
--- NOTE | 2020-06-25 12:59 | ECG_ITS ---
Measurements Intervals [place] Rate: 87 P: 55 MT: 146 QRS: -23 QRSD: 141 T: 3 QT: 393 QTc: 474 Interpretive Statements SINUS RHYTHM RIGHT BUNDLE BRANCH BLOCK BASELINE ARTIFACT- II, AVR, AVF, V4-V6 ABNORMAL ECG Electronically Signed On 06-25-2020 14:51:16 [employer] by Garret Valdez D.O.
--- NOTE | 2020-06-25 13:01 | ED.GENADULT ---
HPI - General Adult General Chief complaint: Dizziness Stated complaint: Dizzy, N/V Source: patient History of Present Illness HPI narrative: Patient is a 59 y/o male complaining of moderate dizziness starting at approximately 5:00 PM on Wednesday (2 days ago). He describes his dizziness as a room spinning sensation. He states that movement makes the dizziness worse. He also has nausea and vomiting. He denies passing out. He denies any focal weakness or numbness. He is able to ambulate. Related Data Home Medications Medication Instructions Recorded Confirmed Symbicort 2 puff INHALATION BID 02/29/20 04/11/20 albuterol sulfate 2 puff INHALATION PRN 02/29/20 04/11/20 amlodipine 5 mg BYMOUTH DAILY 02/29/20 04/11/20 fenofibrate 145 mg BYMOUTH DAILY 02/29/20 04/11/20 lisinopril 20 mg BYMOUTH DAILY 02/29/20 04/11/20 loratadine [Claritin] 10 mg PO DAILY 02/29/20 04/11/20 metoprolol tartrate 25 mg BYMOUTH ONCE 02/29/20 04/11/20 montelukast 10 mg BYMOUTH DAILY 02/29/20 04/11/20 Aspirin Low Dose 81 mg PO ONCE 03/19/20 04/11/20 omeprazole 20 mg capsule,delayed 20 mg PO BID 04/11/20 04/11/20 release Allergies Allergy/AdvReac Type Severity Reaction Status Date / Time No Known Allergies Allergy Verified 06/25/20 12:48 Review of Systems Constitutional: Constitutional: Denies chills, Denies fever(s), Denies headache(s) and Denies weakness Eyes: Eyes: Denies blurry vision ENT: Denies headache(s) and Denies neck pain Cardiovascular: Cardiovascular: Denies chest pain and Denies dyspnea Respiratory: Respiratory: Denies cough and Denies dyspnea Gastrointestinal: Gastrointestinal: Denies abdominal pain, Denies diarrhea, Reports nausea and Reports vomiting Genitourinary: Genitourinary: Denies hematuria and Denies dysuria Musculoskeletal: Musculoskeletal: Denies back pain and Denies neck pain Neurologic: Reports dizziness, Denies headache(s) and Denies weakness PMF Past Medical History Medical History COPD (chronic obstructive pulmonary disease) Diarrhea Erosive gastritis 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 GERD (gastroesophageal reflux disease) Hepatitis C History of anemia Hyperlipidemia Hypertension Surgical History Surgical History H/O shoulder surgery History of laparoscopic cholecystectomy Hx of appendectomy Family History Family History Father Diabetes mellitus Hypertension Mother Hypertension Social History Social History Smoking packs per day: 1 Smoking cigarettes per day: 20.0 Years smoked: 44 Smoking pack-years: 44.00 Smoking status: Current every day smoker Tobacco type: cigarettes Second hand tobacco smoke exposure: No Smoking end date: 12/04/15 Alcohol intake: current Drinks per week: 50 Substance use: former Substance use type: former substance user, marijuana, crack/cocaine and sedatives Spiritual care concerns: No Exam Const: General: no acute distress and well developed Orientation/consciousness: oriented to person, oriented to place, oriented to time and patient oriented x3 HENMT: Head: normocephalic Ears: external ears normal General nose exam: Normal external nose present Eyes: General: appearance normal, both eyes and all related structures Conjunctivae: conjunctivae normal EOM: Nystagmus present Neck: Neck: normal visual inspection and full ROM Chest: Chest palpation & inspection: normal inspection of the chest and no tenderness Resp: Effort & Inspection: normal respiratory effort Auscultation: clear to auscultation bilaterally Cardio: Rate: regular rate Rhythm: regular rhythm GI: GI Palp: No abdominal tenderness and Yes Soft to palpation Skin: General skin exam: normal color and turgor normal Neuro: General: oriented to person, oriented
[2020-06-25] MEDS: SODIUM CHLORIDE 0.9% IV 1,000 ML 999 ML IV CONT ×2 (13:07→18:13)
[2020-06-25] MEDS: ONDANSETRON INJ 4 MG/2 ML VIAL IV PUSH (13:09)
[2020-06-25] MEDS: MECLIZINE HCL 25 MG TABLET PO (13:09)
--- NOTE | 2020-06-25 13:26 | PC.NURSE ---
Took over care for ARIAN Scott. When in room to get blood work, pt had difficulty finding words and continuing repeating questions that were not full thoughts. Kaitlin made aware and to bedside to assess.
[2020-06-25 13:27] LABS: Basophils Percent Auto 0.1 % (0.2-1.2); Hematocrit 33.2 % (42.0-52.0); Hemoglobin 11.7 g/dL (14.0-18.0); Immature Granulocyte Absolute 0.08 K/mm3 (0.00-0.031); Immature Granulocyte Percent A 0.6 % (0-0.5); Lymphocytes Absolute Auto 1.25 K/mm3 (0.9-3.2); Lymphocytes Percent Auto 9.2 % (18.3-44.2); Mean Corpuscular HGB Conc 35.2 g/dl (32-36); Mean Corpuscular Hemoglobin 32.4 pg (26-34); Mean Platelet Volume 9.5 fl (7.4-10.4); Monocytes Absolute Auto 0.8 K/mm3 (0.1-0.6); Monocytes Percent Auto 5.9 % (2.6-8.5); Neutrophils Absolute Auto 11.5 K/mm3 (1.3-6.7); Neutrophils Percent Auto 84.2 % (45.5-73.1); Platelet Count Result 408 k/mm3 (150-375); Red Blood Count 3.61 M/mm3 (4.6-6.20); Red Cell Distribution Width 11.9 % (11.5-14.5); White Blood Count 13.6 K/mm3 (4.5-10.0)
--- NOTE | 2020-06-25 13:32 | PC.NURSE ---
Called lab to get creatine received stat for CTA
--- NOTE | 2020-06-25 13:35 | PC.NURSE ---
Lab called said creatine will result in 5 min. I spoke with [employer] to make her aware that creatine will be back in 5 min. I told her we are concerned about stroke and she said she will keep an eye on creatine results and bring back as soon as that is back.
[2020-06-25 13:41] LABS: Alkaline Phosphatase 35 U/L (38-126); Anion Gap 13 mmol/L (8-16); Aspartate Amino Transferase 24 U/L (17-59); Blood Urea Nitrogen 11 mg/dL (9-20); Calcium 7.9 mg/dL (8.4-10.2); Carbon Dioxide 21 mmol/L (22-30); Chloride 106 mmol/L (98-107); Estimated CRCL calculation 67 ml/min; Estimated Glomerular Filt Rate > 60; Glucose 189 mg/dL (75-110); Potassium 2.5 mmol/L (3.4-5.0); Sodium 140 mmol/L (137-145)
--- NOTE | 2020-06-25 13:47 | PC.NURSE ---
Pt taken CT. Once rolled into room patient screamed out and tightened up with no response to verbal questions. Pt Then started having seizure like activity. Afua, charge nurse called and told of situation. Miguel Angel ordered 1mg ativan. Pt color turned blue and pt taken back to main ED. Breathing noted with snoring en route back to ED. Pt back to ED room 1 at 1347. Pt placed on non rebreather at 1348. 1mg ativan in at 1348 HR 138, O3 98 on non rebreather, RR 25. Pt post ictal with miguel angel at bedside.
[2020-06-25] MEDS: LORazepam INJ (*CRX) 2 MG/ML VIAL (13:48)
[2020-06-25 13:50] LABS: Alanine Aminotransferase 26 U/L (4-50)
--- NOTE | 2020-06-25 14:06 | PC.NURSE ---
A second dose of 1 mg ativan given per verbal orders by Miguel Angel.
--- NOTE | 2020-06-25 14:06 | PC.NURSE ---
CALLED LAB AND ADDED ETOH LEVEL PER EDP DR ERIN VELEZ.
--- NOTE | 2020-06-25 14:07 | PC.NURSE ---
PT TO CT SCAN VIA STRETCHER, TELE MONITOR, SZ PADS IN PLACE.
[2020-06-25 14:14] LABS: Ethanol < 10 mg/dL (<10)
--- NOTE | 2020-06-25 14:20 | PC.NURSE ---
Miguel Angel made aware that pt would not be able to take PO potassium. He states he will order potassium through IV
--- NOTE | 2020-06-25 14:49 | PC.NURSE ---
Pt consistently 100% on non rebreather. Non rebreather taken off. Pt at 97% room air. Pt a&Ox2. Pt does not know they year.
--- NOTE | 2020-06-25 15:10 | PC.NURSE ---
Pt told me last time he drank alcohol was Wednesday and he usually drinks 8 beers a day. Miguel Angel made aware.
--- NOTE | 2020-06-25 16:02 | PC.NURSE ---
Called to give report. Nurse in [facility] in patient room and will call back when done.
[2020-06-25 16:35] LABS: Lactic Acid Reflex 4.2 mmol/L (0.7-2.1)
[2020-06-25 19:18] LABS: Reflex Lactic Acid Yes or No Add Lactic
[2020-06-25 19:54] LABS: Lactic Acid 1.8 mmol/L (0.7-2.1)
[2020-06-26] VITALS (22 sets, daily range): BP systolic 122–157; BP diastolic 62–84; PULSE 86–116; RESP 18–21; TEMP 36.4–37.2; O2SAT 94–100; BMI 30.8
--- NOTE | 2020-06-26 00:56 | PM.IMHP ---
H&P: HPI History of Present Illness Date/Time: 06/26/20 00:56 Chief Complaint: Dizziness Narrative: This is a 59 year old obese male with known history of COPD, HCV, GERD, HTN who presented to the hospital yesterday with complaints of dizziness, nausea and vomiting. His symptoms started over the weekend and have been ongoing for the past 2 days. He characterized his dizziness as if the room was spinning around him. The patient is known to consume about 8 alcoholic drinks daily. He denies passing out yesterday. The patient apparently suffered a seizure while he was getting a Brain CT scan performed yesterday. He was treated with multiple doses of IV ativan. He denies any past history of seizing. He also denies any shakiness or diaphoresis tonight. He has had a sporadic poorly productive cough but denies any fevers, chills, chest pain, diarrhea or rectal bleeding. The patient has been admitted for further care. On my encounter with the patient he currently is denying any nausea and is only complaining of wheezing. He is not normally on home oxygen although here nursing staff has him on 2L of oxygen via [place]. Neurology has been consulted by ER provider. 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 GERD (gastroesophageal reflux disease) Hepatitis C History of anemia Hyperlipidemia Hypertension Surgical History Surgical History H/O shoulder surgery History of laparoscopic cholecystectomy Hx of appendectomy Family History Family History Father Diabetes mellitus Hypertension Mother Hypertension Social History Social History Smoking packs per day: 1 Smoking cigarettes per day: 20.0 Years smoked: 44 Smoking pack-years: 44.00 Smoking status: Former smoker Tobacco type: cigarettes Second hand tobacco smoke exposure: No Smoking end date: 12/04/15 Alcohol intake: current Drinks per week: 8 Substance use: current Substance use type: crack/cocaine Other substance usage details: uses cocaine about once per month Gender identity (if verbalized by the patient): Male Sexual Orientation (if Verbalized by the Patient): Straight or Heterosexual Spiritual care concerns: No Meds Home Medications and Allergies Home Medications Medication Instructions Recorded Confirmed Type Symbicort 2 puff INHALATION BID 02/29/20 06/25/20 History albuterol sulfate 2 puff INHALATION PRN 02/29/20 06/25/20 History amlodipine 5 mg BYMOUTH DAILY 02/29/20 06/25/20 History fenofibrate 145 mg BYMOUTH DAILY 02/29/20 06/25/20 History lisinopril 20 mg BYMOUTH DAILY 02/29/20 06/25/20 History loratadine [Claritin] 10 mg PO DAILY 02/29/20 06/25/20 History metoprolol tartrate 25 mg BYMOUTH ONCE 02/29/20 06/25/20 History montelukast 10 mg BYMOUTH DAILY 02/29/20 06/25/20 History Aspirin Low Dose 81 mg PO ONCE 03/19/20 06/25/20 History omeprazole 20 mg capsule,delayed 20 mg PO BID 04/11/20 06/25/20 History release Allergies Allergy/AdvReac Type Severity Reaction Status Date / Time No Known Allergies Allergy Verified 06/25/20 18:35 Vital Signs Vital Signs - 24 hr 06/25/20 12:39 06/25/20 12:40 06/25/20 12:46 Temperature 36.8 C Pulse Rate 96 95 Respiratory Rate 21 H 15 22 H Blood Pressure 197/88 H 183/90 H Pulse Oximetry 99 98 06/25/20 12:50 06/25/20 13:00 06/25/20 13:02 Temperature Pulse Rate 95 101 H 106 H Respiratory Rate 21 H 20 20 Blood Pressure 175/90 H Pulse Oximetry 98 99 100 06/25/20 13:15 06/25/20 13:30 06/25/20 13:32 Temperature Pulse Rate 89
[2020-06-26 01:16] LABS: Anion Gap 10 mmol/L (8-16); Blood Urea Nitrogen 12 mg/dL (9-20); Carbon Dioxide 27 mmol/L (22-30); Chloride 103 mmol/L (98-107); Estimated CRCL calculation 55 ml/min; Estimated Glomerular Filt Rate 57; Glucose 140 mg/dL (75-110); Magnesium 0.5 mg/dL (1.6-2.3); Potassium 2.9 mmol/L (3.4-5.0); Sodium 140 mmol/L (137-145)
[2020-06-26] MEDS: ALBUTEROL SULFATE NEB 2.5 MG/0.5 ML INH 5 MG INHALATION ×4 (02:18→20:11)
--- NOTE | 2020-06-26 02:58 | ECG_ITS ---
Measurements Intervals [place] Rate: 95 P: 62 MD: 161 QRS: -28 QRSD: 137 T: 20 QT: 382 QTc: 481 Interpretive Statements SINUS RHYTHM RIGHT BUNDLE BRANCH BLOCK ABNORMAL ECG Electronically Signed On 06-26-2020 7:40:53 KEY ENTRY OPERATOR by Garret Valdez D.O.
[2020-06-26] MEDS: MAGNESIUM SULF 2 GM/WATER 50ML 2 GM/50 ML BAG IVPB ×3 (03:20→17:43)
[2020-06-26 06:26] LABS: Glucose Point of Care 200 (65-105)
[2020-06-26 09:20] LABS: Anion Gap 10 mmol/L (8-16); Blood Urea Nitrogen 11 mg/dL (9-20); Calcium 7.8 mg/dL (8.4-10.2); Carbon Dioxide 26 mmol/L (22-30); Chloride 102 mmol/L (98-107); Estimated CRCL calculation 59 ml/min; Estimated Glomerular Filt Rate > 60; Glucose 194 mg/dL (75-110); Magnesium 1.4 mg/dL (1.6-2.3); Sodium 138 mmol/L (137-145)
[2020-06-26 09:29] LABS: Potassium 2.8 mmol/L (3.4-5.0)
[2020-06-26] MEDS: amLODIPine BESYLATE 5 MG TABLET BY MOUTH (09:29)
[2020-06-26] MEDS: ASPIRIN 81 MG CHEWABLE TABLET PO (09:29)
[2020-06-26] MEDS: lisinopriL 20 MG TABLET PO (09:34)
[2020-06-26] MEDS: FENOFIBRATE NANOCRYSTALLIZED 145 MG TABLET PO (09:34)
[2020-06-26] MEDS: PANTOPRAZOLE SOD SESQUIHYDRATE 20 MG TAB PO ×2 (09:34→16:26)
[2020-06-26] MEDS: LORATADINE 10 MG TABLET PO (09:34)
[2020-06-26] MEDS: THIAMINE HCL 200 MG/2 ML VIAL 100 MG IV PUSH (09:35)
--- NOTE | 2020-06-26 11:28 | WPDNEUROLOGY ---
Neurology EEG Report General Information Date of Study: 06/26/20 TEST Eeg DIAGNOSIS seizures CONDITION OF RECORDING awake drowsy and sleep EEG NUMBER [id number] CLINICAL HISTORY patient was admitted to the hospital yesterday with complaints of dizziness. While in the CT scan he reportedly had a seizure though he denies any history of seizures in the past. EEG DESCRIPTION Basic resting occipital frequency consists of medium voltage 8 to 10 hertz per 2nd alpha admixed with low-voltage 15 to 18 hertz per 2nd beta and multiple movements artifacts. During drowsiness low-voltage beta activity seen diffusely. Bilateral symmetrical sleep activity seen during sleep admixed with intermittent EKG artifacts. Non paroxysmal. Nonfocal. Nonlateralizing. IMPRESSION No significant abnormalities noted
[2020-06-26 11:48] LABS: Glucose Point of Care 155 (65-105)
--- NOTE | 2020-06-26 12:34 | WPDNEURCNPN ---
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 is a 59 year old male Admitted to the hospital for the complaints of dizziness in addition to the ongoing history of 1. COPD 2. As CV 3. GERD 4. Hypertension the symptomatology started over the weekend and has been going over for the last 48 hours in addition to description of dizziness as spinning sensation around. Patient has been consuming 8 alcoholic drinks daily. He had a seizure while he was getting a brain CT scan to the emergency room for which he received multiple doses of intravenous Ativan. He gave history of sporadic poorly productive cough but no fever he was admitted to the hospital for further care. His past history particularly consistent with the COPD, erosive gastritis, hepatic fibrosis secondary to alcoholism, hepatitis C, and GERD, anemia hyperlipidemia and hypertension. Evaluation up until now revealed him to have hypokalemia with GFR of 57 glucose of 140, CTA of the head and neck with bilateral carotid bulb 0% stenosis and no intracranial or cervical acute findings. Renal ultrasounds normal on March 20, 2020. 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 GERD (gastroesophageal reflux disease) Hepatitis C History of anemia Hyperlipidemia Hypertension Surgical History Surgical History H/O shoulder surgery History of laparoscopic cholecystectomy Hx of appendectomy Family History Family History Father Diabetes mellitus Hypertension Mother Hypertension Social History Social History Smoking packs per day: 1 Smoking cigarettes per day: 20.0 Years smoked: 44 Smoking pack-years: 44.00 Smoking status: Former smoker Tobacco type: cigarettes Second hand tobacco smoke exposure: No Smoking end date: 12/04/15 Alcohol intake: current Drinks per week: 8 Substance use: current Substance use type: crack/cocaine Other substance usage details: uses cocaine about once per month Gender identity (if verbalized by the patient): Male Sexual Orientation (if Verbalized by the Patient): Straight or Heterosexual Spiritual care concerns: No Meds Home Medications and Allergies Home Medications Medication Instructions Recorded Confirmed Type Symbicort 2 puff INHALATION BID 02/29/20 06/25/20 History albuterol sulfate 2 puff INHALATION PRN 02/29/20 06/25/20 History amlodipine 5 mg BYMOUTH DAILY 02/29/20 06/25/20 History fenofibrate 145 mg BYMOUTH DAILY 02/29/20 06/25/20 History lisinopril 20 mg BYMOUTH DAILY 02/29/20 06/25/20 History loratadine [Claritin] 10 mg PO DAILY 02/29/20 06/25/20 History metoprolol tartrate 25 mg BYMOUTH ONCE 02/29/20 06/25/20
[2020-06-26] MEDS: ONDANSETRON INJ 4 MG/2 ML VIAL IV PUSH (13:55)
[2020-06-26 15:09] LABS: Potassium 2.8 mmol/L (3.4-5.0)
--- NOTE | 2020-06-26 16:01 | PM.IMPN ---
Progress Note: A&P Assessment and Plan (1) Dizziness: Code(s): R42 - Dizziness and giddiness Status: Acute Assessment and Plan: Patient reported feeling dizzy at home and reported having falls related to this. Head/ neck CTA was negative for acute intracranial findings and no carotid stenosis. Brain MRI was unremarkable. he may be orthostatic secondary to hypovolemia as he was dehydrated upon presentation. Check orthostatic blood pressures Meclizine as needed continue with IV fluids appreciate neurology input (2) Seizure: Code(s): R56.9 - Unspecified convulsions Status: Acute Assessment and Plan: Patient was noted to have a seizure while getting a head CT that required several doses of IV ativan. No further details are available regarding this episode. Patient noted to be post-ictal following. No evidence of tongue injury or other injury. This may have been secondary to alcohol withdrawal (pt reports last alcoholic drink was 06/23). He also had severely low magnesium levels which may have contributed. EEG unremarkable. Continue Seizure precautions. Treat any acute seizure accordingly with IV benzodiazepines. Appreciate neurology recommendations. (3) Nausea & vomiting: Qualifiers: Vomiting Intractability: non-intractable Vomiting type: unspecified Qualified Code(s): R11.2 - Nausea with vomiting, unspecified Code(s): R11.2 - Nausea with vomiting, unspecified Status: Resolved Assessment and Plan: Etiology unclear. Patient does not appear to have underlying infection. CT a/p unremarkable. He is afebrile. Seems to have resolved and patient now tolerating diet. May have been secondary to alcohol use. PRN antiemetics. Continue gentle IV fluids (4) Hypokalemia: Code(s): E87.6 - Hypokalemia Status: Acute Assessment and Plan: Potassium low at 2.8. Secondary to N/V and poor PO intake. Received 40 mEq IV KCl this morning. Repeat potassium still low and therefore will repeat dose of 40 mEq KCl. Repeat potassium 1 hour following IV potassium infusion. Monitor potassium closely and continue to replace as needed. monitor on telemetry (5) Hypomagnesemia: Code(s): E83.42 - Hypomagnesemia Status: Acute Assessment and Plan: Magnesium low at 0.5. He received in total 4 g magnesium sulfate and magnesium improved. 1.4 today. Will administer an additional 2 g IV magnesium sulfate and will monitor magnesium tomorrow morning monitor on telemetry (6) COPD (chronic obstructive pulmonary disease): Qualifiers: COPD type: unspecified COPD Qualified Code(s): J44.9 - Chronic obstructive pulmonary disease, unspecified Code(s): J44.9 - Chronic obstructive pulmonary disease, unspecified Status: Chronic Assessment and Plan: chronic. Does not appear to be in acute exacerbation at this time. Lungs clear to auscultation and patient maintaining adequate oxygen saturations. Continue bronchodilators. (7) Alcohol abuse: Code(s): F10.10 - Alcohol abuse, uncomplicated Status: Chronic Assessment and Plan: Patient drinks 8 beers nightly. Last CIWA score was 3. He has been mildly tachycardic and review of telemetry showed sinus tachy. Continue CIWA-AR protocol Ativan withdrawal prophylaxis Continue IV thiamine Add folic acid Care coordination following to provide resources. Continue to encourage alcohol cessation. (8) Dehydration: Code(s): E86.0 - Dehydration Status: Acute Assessment and Plan: As noted above, secondary to decreased oral intake, nausea, and vomiting. Begin gentle IV fluid; LR at 100 mL/hr Subjective Date/time seen: 06/26/20 16:01 Interval history: date of service: 06/26/2020 Darrel gary is a 59-year-old male with a history of COPD, hepatitis-C, hypertension, hyperlipidemia, and a
[2020-06-26] MEDS: LACTATED RINGERS 1,000 ML 100 ML IV CONT (17:42)
[2020-06-26 17:49] LABS: Add Urine Microscopic? YES; Appearance Urine Clear (Clear); Bacteria Urine Trace /hpf; Bilirubin Urine Negative (Negative); Blood Urine Negative (Negative); Color Urine Amber (Yellow); Glucose Urine UA Negative (Negative); Ketones Urine Negative (Negative); Leukocyte Esterase Ur Negative LEU/UL (Negative); Mucus Urine Rare /lpf; Nitrate Urine Negative (Negative); Protein Urine 1+ mg/dL (Negative); RBC Urine 0-2 /hpf (0-2); Squamous Epithelial Cell Urine Few /hpf (Few); WBC Urine 0-3 /hpf
[2020-06-26 17:50] LABS: Specific Grav Ur 1.038 (1.001-1.035)
[2020-06-26 19:04] LABS: Glucose Point of Care 145 (65-105)
[2020-06-26] MEDS: BUDESONIDE/FORMOTEROL (*SP) 160-4.5 MCG 6 GM INH 2 PUFF INHALATION (20:13)
[2020-06-26] MEDS: MONTELUKAST SODIUM 10 MG TABLET PO (21:12)
[2020-06-27] VITALS (8 sets, daily range): BP systolic 133–137; BP diastolic 70–85; PULSE 72–93; RESP 18–20; TEMP 36.6–37; O2SAT 94–97
[2020-06-27 06:17] LABS: Alanine Aminotransferase 21 U/L (4-50); Albumin Level 3.5 g/dL (3.5-5.1); Alkaline Phosphatase 41 U/L (38-126); Anion Gap 8 mmol/L (8-16); Aspartate Amino Transferase 39 U/L (17-59); Bilirubin,Total 2.5 mg/dL (0.2-1.3); Blood Urea Nitrogen 12 mg/dL (9-20); Calcium 7.8 mg/dL (8.4-10.2); Carbon Dioxide 29 mmol/L (22-30); Chloride 99 mmol/L (98-107); Estimated CRCL calculation 64 ml/min; Estimated Glomerular Filt Rate > 60; Glucose 146 mg/dL (75-110); Magnesium 1.4 mg/dL (1.6-2.3); Sodium 136 mmol/L (137-145)
[2020-06-27 06:30] LABS: Hematocrit 26.1 % (42.0-52.0); Hemoglobin 8.9 g/dL (14.0-18.0); Mean Corpuscular HGB Conc 34.1 g/dl (32-36); Mean Corpuscular Hemoglobin 32.6 pg (26-34); Mean Corpuscular Volume 95.6 fl (80-100); Mean Platelet Volume 9.7 fl (7.4-10.4); Platelet Count Result 288 k/mm3 (150-375); Red Blood Count 2.73 M/mm3 (4.6-6.20); Red Cell Distribution Width 12.3 % (11.5-14.5); White Blood Count 8.9 K/mm3 (4.5-10.0)
[2020-06-27] MEDS: THIAMINE HCL 200 MG/2 ML VIAL 100 MG IV PUSH (08:15)
[2020-06-27] MEDS: MAGNESIUM SULF 2 GM/WATER 50ML 2 GM/50 ML BAG IVPB (08:15)
[2020-06-27] MEDS: FOLIC ACID 1 MG TABLET PO (08:16)
[2020-06-27] MEDS: FENOFIBRATE NANOCRYSTALLIZED 145 MG TABLET PO (08:16)
[2020-06-27] MEDS: PANTOPRAZOLE SOD SESQUIHYDRATE 20 MG TAB PO ×2 (08:16→16:24)
[2020-06-27] MEDS: LORATADINE 10 MG TABLET PO (08:16)
[2020-06-27] MEDS: ASPIRIN 81 MG CHEWABLE TABLET PO (08:16)
[2020-06-27] MEDS: lisinopriL 20 MG TABLET PO (08:16)
[2020-06-27] MEDS: amLODIPine BESYLATE 5 MG TABLET BY MOUTH (08:17)
[2020-06-27] MEDS: POTASSIUM CHLORIDE 20 MEQ PACKET (FOR LIQUID) 40 MEQ PO (10:05)
[2020-06-27 11:45] LABS: Hematocrit 26.9 % (42.0-52.0); Hemoglobin 9.2 g/dL (14.0-18.0)
[2020-06-27 11:56] LABS: Anion Gap 6 mmol/L (8-16); Blood Urea Nitrogen 10 mg/dL (9-20); Calcium 7.9 mg/dL (8.4-10.2); Carbon Dioxide 29 mmol/L (22-30); Chloride 100 mmol/L (98-107); Estimated CRCL calculation 64 ml/min; Estimated Glomerular Filt Rate > 60; Glucose 197 mg/dL (75-110); Potassium 3.5 mmol/L (3.4-5.0); Sodium 135 mmol/L (137-145)
[2020-06-27 12:28] LABS: Magnesium 2.1 mg/dL (1.6-2.3)
--- NOTE | 2020-06-27 13:25 | PM.DS ---
DS: Admitting Diagnosis Admitting Diagnosis Admitting Diagnosis: Dizziness DS: Discharge Diagnosis Discharge Diagnosis (1) Seizure: Code(s): R56.9 - Unspecified convulsions Status: Acute Assessment and Plan: Patient was noted to have a seizure while getting a head CT on 06/25 that required several doses of IV ativan. No further details are available regarding this episode. Patient noted to be post-ictal following. No evidence of tongue injury or other injury. Suspect this was secondary to hypomagnesemia as magnesium levels were critically low at 0.5. This may have been secondary to alcohol withdrawal (pt reports last alcoholic drink was 06/23). No episodes of hypoglycemia. He was seen in consultation by neurology and EEG was unremarkable. Electrolytes monitored closely and replaced as described below. (2) Dizziness: Code(s): R42 - Dizziness and giddiness Status: Acute Assessment and Plan: Patient reported feeling dizzy at home and reported having falls related to this. Head/neck CTA was negative for acute intracranial findings and no carotid stenosis. Brain MRI was unremarkable. He was not orthostatic. Denied ear pain or hearing changes. May be secondary to alcohol use or electrolyte imbalance. Dizziness resolved. (3) Nausea & vomiting: Qualifiers: Vomiting Intractability: non-intractable Vomiting type: unspecified Qualified Code(s): R11.2 - Nausea with vomiting, unspecified Code(s): R11.2 - Nausea with vomiting, unspecified Status: Resolved Assessment and Plan: He reported N/V prior to presentation to ED. Etiology unclear. No evidence of underlying infection. CT a/p unremarkable. He remained afebrile. May have been secondary to alcohol use. N/V resolved and he was able to tolerate a regular diet. (4) Hypomagnesemia: Code(s): E83.42 - Hypomagnesemia Status: Acute Assessment and Plan: Magnesium critically low at 0.5 upon presentation. Magnesium was replaced with IV mag sulfate and monitored closely. Monitored on telemetry with no evidence of arrhythmia. At time of discharge, magnesium was 2.1. He will start daily PO magnesium supplementation and will repeat labs in 1 week. (5) Hypokalemia: Code(s): E87.6 - Hypokalemia Status: Acute Assessment and Plan: Potassium low upon presentation. Potassium replaced with both IV and oral KCl and monitored closely. Levels improved. Potassium 3.5 at time of discharge. Repeat labs in 1 week with results to PCP. (6) COPD (chronic obstructive pulmonary disease): Qualifiers: COPD type: unspecified COPD Qualified Code(s): J44.9 - Chronic obstructive pulmonary disease, unspecified Code(s): J44.9 - Chronic obstructive pulmonary disease, unspecified Status: Chronic Assessment and Plan: Not in acute exacerbation at this time. Lungs clear to auscultation and patient maintained adequate oxygen saturations on room air. Continue bronchodilators. (7) Alcohol abuse: Code(s): F10.10 - Alcohol abuse, uncomplicated Status: Chronic Assessment and Plan: Patient drinks 8 beers nightly. CIWA protocol was in place and patient had scores ranging 2-3. He had no signs of alcohol withdrawal (following seizure). I discussed with him in depth the need for alcohol cessation but he is uninterested in quitting drinking. Care coordination met with patient to provide resources should patient decide to pursue alcohol cessation in the future. He was started on thiamine and folic acid supplementation. (8) Dehydration: Code(s): E86.0 - Dehydration Status: Acute Assessment and Plan: Secondary to decreased oral intake, nausea, and vomiting. He was rehydrated with IV fluids. PO intake improved. DS: Summary Hospital Course Reason for hospitalization: Dizziness Hospital Course: date of admission: 06/25/2020 date of discharg
[2020-06-30 07:46] LABS: Prolactin 17.8 ng/mL (***)
== END 2020-06-27 17:00 | disposition home or self-care (01) ==
LOC: ANHED 12:40 → ANH2MED 15:45
PROVIDERS: Family Medicine; Physician Assistant; Admitting Provider Family Medicine; Emergency Provider Emergency Medicine; Visit Provider Family Medicine
DX: R56.9 Unspecified convulsions (principal); R42 Dizziness and giddiness; R11.2 Nausea with vomiting, unspecified; E87.6 Hypokalemia; E83.42 Hypomagnesemia; F10.10 Alcohol abuse, uncomplicated; E86.0 Dehydration; J44.9 Chronic obstructive pulmonary disease, unspecified; I10 Essential (primary) hypertension; K21.9 Gastro-esophageal reflux disease without esophagitis; B19.20 Unspecified viral hepatitis C without hepatic coma; E78.5 Hyperlipidemia, unspecified; K70.2 Alcoholic fibrosis and sclerosis of liver; F17.210 Nicotine dependence, cigarettes, uncomplicated; Z79.82 Long term (current) use of aspirin
CPT/HCPCS: 36415; 70496; 70498; 70553; 80048; 80053; 80307; 81001; 83605; 83735; 84132; 84146; 85014; 85018; 85025; 85027; 93005; 94640; 95816; 96361; 96365; 96366; 96367; 96375; 96376; 99285; A9270; A9577; G0378; G0379; J2060; J2405; J3411; J3475; J3480; J7030; J7120; Q9967

== ENCOUNTER 2021-02-22 16:38 | Emergency (ER) | payer OTHER, SELFPAY ==
--- NOTE | 2021-02-22 16:43 | ED.EYEPROB ---
HPI - Eye Problem General Chief complaint: Eye Problems Stated complaint: eye problems Time Seen by Provider: 02/22/21 16:52 Source: patient and RN notes reviewed Mode of arrival: ambulatory Limitations: no limitations History of Present Illness HPI Narrative: 60-year-old male presents with concern for right upper eyelid swelling. He noticed the symptoms started about a week ago. He denies any vision changes, drainage from the eye, eye pain, eye redness. Denies any bumps or open skin on his eyelid. He denies intervention. Reports a history of periorbital cellulitis chief complaint: other (Eyelid swelling) Related Data Home Medications Medication Instructions Recorded Confirmed Symbicort 2 puff INHALATION BID 02/29/20 02/22/21 albuterol sulfate 2 puff INHALATION PRN 02/29/20 02/22/21 amlodipine 5 mg BYMOUTH DAILY 02/29/20 02/22/21 fenofibrate 145 mg BYMOUTH DAILY 02/29/20 02/22/21 lisinopril 20 mg BYMOUTH DAILY 02/29/20 02/22/21 metoprolol tartrate 25 mg BYMOUTH BID 02/29/20 02/22/21 Aspirin Low Dose 81 mg PO ONCE 03/19/20 02/22/21 pantoprazole 40 mg PO DAILY 02/22/21 02/22/21 Allergies Allergy/AdvReac Type Severity Reaction Status Date / Time No Known Allergies Allergy Verified 02/22/21 17:00 Review of Systems Review of Systems: CONSTITUTIONAL: Denies malaise, chills, sweats, or fever. EYES: Denies visual changes, redness, or discharge. Reports right upper eyelid swelling, denies pain ENT: Denies rhinorrhea, congestion, sinus pain, otalgia or sore throat. SKIN: Denies rash or itching. MUSCULOSKELETAL: Denies myalgia. NEUROLOGIC: Denies headache. 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 GERD (gastroesophageal reflux disease) Hepatitis C History of anemia Hyperlipidemia Hypertension Surgical History Surgical History H/O shoulder surgery History of laparoscopic cholecystectomy Hx of appendectomy Family History Family History Father Diabetes mellitus Hypertension Mother Hypertension Social History Social History Smoking packs per day: 1 Smoking cigarettes per day: 20.0 Years smoked: 44 Smoking pack-years: 44.00 Smoking status: Former smoker Tobacco type: cigarettes Second hand tobacco smoke exposure: No Smoking end date: 12/04/15 Alcohol intake: current Drinks per week: 8 Substance use: current Substance use type: crack/cocaine Other substance usage details: uses cocaine about once per month Gender identity (if verbalized by the patient): Male Spiritual care concerns: No Comments At time of signature, agree with nursing past medical, surgical, social and family history. There is no relevant family history pertinent to the presenting complaint Exam Narrative: GENERAL: Well-appearing, well-nourished, and in no acute distress. HEAD: Normocephalic, atraumatic. EYES: PERRLA, conjunctivae clear, sclera clear, and EOMI. No nystagmus. Soft, superficial right upper eyelid edema without hordeolum or chalazion noted ENT: Nares clear. Mucous membranes moist. NECK: Supple. CHEST: No respiratory distress. Speaks in full sentences. HEART: Regular rate and rhythm. SKIN: Warm, dry, no rash. NEURO: Alert and oriented x3 PSYCH: Normal mood and affect Course Course Emergency Course: Patient is aware of diagnosis, understands and agrees to treatment plan. Anticipatory guidance given. Patient agrees to follow-up as directed and is aware of reasons to seek care at the emergency department. Portions of this record may have been created with voice recognition software Vital Signs Vital signs: Rev
[2021-02-22 16:47] VITALS: BP 146/79; PULSE 99; RESP 18; TEMP 37.3; O2SAT 97
== END 2021-02-22 17:13 | disposition home or self-care (01) ==
PROVIDERS: Emergency Provider Nurse Practitioner; PCP Physician Assistant
DX: H01.001 Unspecified blepharitis right upper eyelid (principal); Z87.891 Personal history of nicotine dependence; J44.9 Chronic obstructive pulmonary disease, unspecified; K70.2 Alcoholic fibrosis and sclerosis of liver; K21.9 Gastro-esophageal reflux disease without esophagitis; Z86.19 Personal history of other infectious and parasitic diseases; E78.5 Hyperlipidemia, unspecified; I10 Essential (primary) hypertension
CPT/HCPCS: 99213; G0463

== ENCOUNTER 2021-06-09 00:45 | Emergency (ER) | payer OTHER, SELFPAY ==
--- NOTE | ~2021-06-09 | XR_ITS ---
EXAMINATION: XR chest 1V portable DATE: 06/09/2021 01:05 INDICATION: Chest pain. TECHNIQUE: A single frontal view of the chest was obtained. COMPARISON: Chest 2 views 12/24/2015, chest CT 06/09/2021 FINDINGS: The chest demonstrates clear lungs without pneumonia, pleural effusion, or pneumothorax. Th e heart size is normal. IMPRESSION: 1. No acute cardiopulmonary disease. Reviewed, dictated and finalized at location A. GER RN CASE
--- NOTE | ~2021-06-09 | CT_ITS ---
EXAMINATION: CTA chest PE protocol DATE: 06/09/2021 03:16 INDICATION: Chest pain. Shortness of breath. TECHNIQUE: Computed tomography angiography (CTA) of the chest was performed with 100 mL Omnipaque-350 intravenous contrast timed to evaluate the pulmonary arteries. Coronal maximum intensity projection 3D-reconstructions were created by the technologist. Automated exposure control and iterative reconst ruction technique were employed. The dose-length product was 634.78 mGy-cm. COMPARISON: Chest CT 01/15/2015 FINDINGS: There is mild atelectasis bilaterally. There are 4 mm and 3 mm nodules in right upper lobe, likely benign. There is mild emphysema. No pleural effusion. The heart size is normal. There are cor onary artery calcifications. No pericardial effusion. There is no pulmonary embolus. Pneumobilia is n oted, likely secondary to sphincterotomy. There are changes of cholecystectomy. There is severe left glenohumeral joint osteoarthritis with loose bodies. There is severe right glenohumeral joint osteoar thritis. There is thoracic kyphosis and severe spondylosis. There is an old fracture of T1 spinous pr ocess with nonunion. IMPRESSION: 1. No pulmonary embolus. Sensitivity is moderately decreased by motion artifact and suboptimal contra st opacification. 2. Mild emphysema. Reviewed, dictated and finalized at location A. ER MINER IMPRESSION: 1. No pulmonary embolus. Sensitivity is moderately decreased by motion artifact and suboptimal contrast opacification. 2. Mild emphysema.
[2021-06-09 00:42] VITALS: BP 127/61; PULSE 84; RESP 20; TEMP 36.2; O2SAT 98
--- NOTE | 2021-06-09 00:53 | ECG_ITS ---
Measurements Intervals [place] Rate: 90 P: 58 SD: 159 QRS: -38 QRSD: 140 T: 30 QT: 359 QTc: 440 Interpretive Statements SINUS RHYTHM LEFT AXIS DEVIATION RIGHT BUNDLE BRANCH BLOCK BASELINE ARTIFACT- I, III, AVR, AVL, AVF, V4-V6 ABNORMAL ECG Electronically Signed On 06-09-2021 7:39:21 LIBRARY TECHNOLOGY INSTRUCTOR by Garret Valdez D.O.
[2021-06-09 01:21] LABS: Add Urine Microscopic? YES; Appearance Urine Clear (Clear); Bacteria Urine Trace /hpf; Bilirubin Urine Negative (Negative); Blood Urine Negative (Negative); Color Urine Amber (Yellow); Glucose Urine UA Negative (Negative); Ketones Urine Negative (Negative); Leukocyte Esterase Ur Negative LEU/UL (Negative); Mucus Urine Rare /lpf; Nitrate Urine Negative (Negative); Protein Urine Negative (Negative); RBC Urine 0-2 /hpf (0-2); Specific Grav Ur 1.017 (1.001-1.035)
[2021-06-09] MEDS: ONDANSETRON INJ 4 MG/2 ML VIAL IV PUSH (01:54)
--- NOTE | 2021-06-09 01:57 | PC.NURSE ---
Called phlebotomy to come draw patient, patient tough stick. Able to get IV access, placed by ARIAN Tanner. Unable to draw blood, phlebotomy contacted, spoke with Brigitte, she states she will come draw patient.
[2021-06-09 02:39] LABS: Basophils Percent Auto 0.3 % (0.2-1.2); Eosinophils Percent Auto 0.1 % (0-4.4); Hematocrit 30.3 % (42.0-52.0); Hemoglobin 10.5 g/dL (14.0-18.0); Immature Granulocyte Absolute 0.07 K/mm3 (0.00-0.031); Immature Granulocyte Percent A 0.6 % (0-0.5); Lymphocytes Percent Auto 3.3 % (18.3-44.2); Mean Corpuscular HGB Conc 34.7 g/dl (32-36); Mean Corpuscular Hemoglobin 32.8 pg (26-34); Mean Corpuscular Volume 94.7 fl (80-100); Mean Platelet Volume 9.7 fl (7.4-10.4); Monocytes Absolute Auto 0.2 K/mm3 (0.1-0.6); Monocytes Percent Auto 1.5 % (2.6-8.5); Neutrophils Absolute Auto 11.6 K/mm3 (1.3-6.7); Neutrophils Percent Auto 94.2 % (45.5-73.1); Platelet Count Result 241 k/mm3 (150-375); Red Cell Distribution Width 11.9 % (11.5-14.5); White Blood Count 12.3 K/mm3 (4.5-10.0)
[2021-06-09 02:51] LABS: Alanine Aminotransferase 45 U/L (4-50); Albumin Level 4.5 g/dL (3.5-5.1); Alkaline Phosphatase 67 U/L (38-126); Anion Gap 13 mmol/L (8-16); Aspartate Amino Transferase 129 U/L (17-59); Bilirubin,Total 2.5 mg/dL (0.2-1.3); Blood Urea Nitrogen 17 mg/dL (9-20); Calcium 8.5 mg/dL (8.4-10.2); Carbon Dioxide 23 mmol/L (22-30); Chloride 99 mmol/L (98-107); Estimated Glomerular Filt Rate > 60; Glucose 192 mg/dL (65-110); Potassium 3.4 mmol/L (3.4-5.0); Sodium 135 mmol/L (137-145)
[2021-06-09 03:01] LABS: Amphetamine Screen Urine Negative (Negative); Barbiturate Screen Urine Negative (Negative); Benzodiazepines Screen Urine Positive (Negative); Cannabinoid Screen Urine Negative (Negative); Cocaine Screen Urine Positive (Negative); Methadone Screen Urine Negative (Negative); Opiate Screen Urine Negative (Negative); Phencyclidine Screen Urine Negative (Negative)
[2021-06-09 03:04] LABS: NT Pro B Type Natriuretic Pept 69 pg/mL (5-100); Troponin I < 0.012 ng/mL (0.000-0.034)
[2021-06-09] MEDS: MAG HYDROX/AL HYDROX/SIMETH 30 ML UDC PO (03:33)
[2021-06-09] MEDS: LIDOCAINE HCL 2% VISC SOLN 15 ML UDC 20 ML PO (03:33)
--- NOTE | 2021-06-09 05:03 | ED.CHESTPAIN ---
HPI - Chest Pain General Chief Complaint: Chest Pain Stated Complaint: chest pain/epigastric pain Time Seen by Provider: 06/09/21 00:47 Source: patient History of Present Illness HPI narrative: Patient presents with chest pain and epigastric pain. Reports symptoms started late afternoon early evening around 5:00 Effient progressively worse so he came to the ER for evaluation. Reports a history of reflux however this feels different than his prior reflux. Reports a sharp pain in his lower chest epigastric region radiates across his chest no clear aggravating or alleviating symptoms is report associated nausea vomiting and diarrhea as well. He denies any fevers, cough, congestion Related Data Home Medications Medication Instructions Recorded Confirmed Symbicort 2 puff INHALATION BID 02/29/20 02/22/21 albuterol sulfate 2 puff INHALATION PRN 02/29/20 02/22/21 amlodipine 5 mg BYMOUTH DAILY 02/29/20 02/22/21 fenofibrate 145 mg BYMOUTH DAILY 02/29/20 02/22/21 lisinopril 20 mg BYMOUTH DAILY 02/29/20 02/22/21 metoprolol tartrate 25 mg BYMOUTH BID 02/29/20 02/22/21 Aspirin Low Dose 81 mg PO ONCE 03/19/20 02/22/21 pantoprazole 40 mg PO DAILY 02/22/21 02/22/21 Allergies Allergy/AdvReac Type Severity Reaction Status Date / Time No Known Allergies Allergy Verified 02/22/21 17:00 Review of Systems Review of Systems: CONSTITUTIONAL: Denies fever, chills, or sweats. EYES: Denies visual changes, redness, or discharge. ENT: Denies rhinorrhea, congestion, sore throat, or otalgia. CARDIOVASCULAR: Denies palpitations, or edema. RESPIRATORY: Denies cough or dyspnea. GASTROINTESTINAL: Reports epigastric pain, nausea, vomiting, diarrhea a. GENITOURINARY: Denies dysuria or hematuria. SKIN: Denies rash or itching. MUSCULOSKELETAL: Denies back pain, joint pain, or myalgia. NEUROLOGIC: Denies headache, numbness, dizziness, or weakness. PSYCHIATRIC: Denies anxiety or depression. 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 GERD (gastroesophageal reflux disease) Hepatitis C History of anemia Hyperlipidemia Hypertension Surgical History Surgical History H/O shoulder surgery History of laparoscopic cholecystectomy Hx of appendectomy Family History Family History Father Diabetes mellitus Hypertension Mother Hypertension Social History Social History Smoking packs per day: 1 Smoking cigarettes per day: 20.0 Years smoked: 44 Smoking pack-years: 44.00 Smoking status: Former smoker Tobacco type: cigarettes Second hand tobacco smoke exposure: No Smoking end date: 12/04/15 Alcohol intake: current Drinks per week: 8 Substance use: current Substance use type: crack/cocaine Other substance usage details: uses cocaine about once per month Gender identity (if verbalized by the patient): Male Sexual Orientation (if Verbalized by the Patient): Straight or Heterosexual Spiritual care concerns: No Exam Narrative: GENERAL: Well-appearing, well-nourished, and in no acute distress. HEAD: Normocephalic, atraumatic. EYES: PERRLA and EOMI. ENT: Nares clear, no rhinorrhea or epistaxis. Mucous membranes moist. NECK: Supple. No masses. No JVD CHEST: Clear to auscultation. No respiratory distress. No wheezes rales or rhonchi HEART: Regular rate and rhythm. No murmur heard. Normal peripheral pulses. ABDOMEN: Soft, nontender, nondistended, normal active bowel sounds. EXTREMITIES: Normal range of motion. No edema. SKIN: Warm, dry, no rash. NEURO: No focal deficits. Alert and oriented x3. PSYCH: Normal mood and affect. C
[2021-06-09] MEDS: SODIUM CHLORIDE 0.9% IV 1,000 ML 999 ML IV CONT (05:14)
[2021-06-09 06:01] VITALS: BP 123/78; PULSE 110; RESP 20; O2SAT 97
== END 2021-06-09 06:03 | disposition home or self-care (01) ==
PROVIDERS: Emergency Provider Emergency Medicine; PCP Physician Assistant
DX: R07.9 Chest pain, unspecified (principal); R19.7 Diarrhea, unspecified; R11.2 Nausea with vomiting, unspecified; J44.9 Chronic obstructive pulmonary disease, unspecified; K70.2 Alcoholic fibrosis and sclerosis of liver; K21.9 Gastro-esophageal reflux disease without esophagitis; E78.5 Hyperlipidemia, unspecified; I10 Essential (primary) hypertension; D64.9 Anemia, unspecified; I45.10 Unspecified right bundle-branch block; Z87.891 Personal history of nicotine dependence; Z79.82 Long term (current) use of aspirin; Z86.19 Personal history of other infectious and parasitic diseases
CPT/HCPCS: 36415; 71045; 71275; 80053; 80307; 81001; 83880; 84484; 85025; 93005; 96361; 96374; 99284; A9270; J2405; J7030; Q9967

== ENCOUNTER 2022-02-01 19:07 | Emergency (ER) | payer OTHER, SELFPAY ==
[2022-02-01 19:17] VITALS: BP 126/76; PULSE 79; RESP 16; TEMP 37.5; O2SAT 99
--- NOTE | 2022-02-01 19:17 | ED.URI ---
HPI - URI/Sore Throat General Chief Complaint: Upper Respiratory Infection Stated Complaint: sore throat Time Seen by Provider: 02/01/22 19:17 Source: patient Mode of arrival: ambulatory Limitations: no limitations History of Present Illness HPI Narrative: Mr. Randle is a 61-year-old male patient presenting to the clinic today with complaints of sore throat that began this morning. He denies any fever chills, chest pain or increased shortness of breath. He reports that he has stage IV COPD. Has had positive exposure to someone with COVID and would like to be tested for COVID today. MD elicited complaint: sore throat and nasal congestion Related Data Home Medications Medication Instructions Recorded Confirmed Symbicort 2 puff inhalation BID 02/29/20 02/22/21 albuterol sulfate 2 puff inhalation PRN 02/29/20 02/22/21 amlodipine 5 mg BYMOUTH DAILY 02/29/20 02/22/21 fenofibrate 145 mg BYMOUTH DAILY 02/29/20 02/22/21 lisinopril 20 mg BYMOUTH DAILY 02/29/20 02/22/21 metoprolol tartrate 25 mg BYMOUTH BID 02/29/20 02/22/21 Aspirin Low Dose 81 mg PO ONCE 03/19/20 02/22/21 pantoprazole 40 mg tablet,delayed 40 mg PO DAILY 02/22/21 02/22/21 release spironolactone 50 mg tablet mg 02/01/22 tiotropium bromide 18 mcg capsule inhalation 02/01/22 with inhalation device (Spiriva with HandiHaler) Allergies Allergy/AdvReac Type Severity Reaction Status Date / Time No Known Allergies Allergy Verified 02/22/21 17:00 Review of Systems Review of Systems: Pertinent positives per HPI. Patient denies any fever, chills, rash, headache, visual changes, dizziness, shortness of breath, chest pain, palpitations, nausea, vomiting, diarrhea, constipation, abdominal pain, or any urinary issues. 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 GERD (gastroesophageal reflux disease) Hepatitis C History of anemia Hyperlipidemia Hypertension Surgical History Surgical History H/O shoulder surgery History of laparoscopic cholecystectomy Hx of appendectomy Family History Family History Father Diabetes mellitus Hypertension Mother Hypertension Social History Social History Smoking packs per day: 1 Smoking cigarettes per day: 20.0 Years smoked: 44 Smoking pack-years: 44.00 Smoking status: Former smoker Tobacco type: cigarettes Second hand tobacco smoke exposure: No Smoking end date: 12/04/15 Alcohol intake: current Drinks per week: 8 Substance use: current Substance use type: crack/cocaine Other substance usage details: uses cocaine about once per month Gender identity (if verbalized by the patient): Male Sexual Orientation (if Verbalized by the Patient): Straight or Heterosexual Spiritual care concerns: No Comments At the time of my signature, I reviewed and agree with the nursing past medical, surgical, social, and family history. There is no relevant family history pertinent to the patient complaint. Exam Narrative: General: Well-developed, well nourished, in no apparent distress Head: Normocephalic, atraumatic Eyes: Pupils equally round and reactive to light bilaterally, EOM intact, sclera and conjunctive clear, no discharge, lids normal Ears: TMs intact and clear, ear canals clear, no drainage, grossly hearing normal. Nose: Nares patent, no discharge, no inflammation, no sinus tenderness. Mouth: Oral pharynx without lesions or masses, good dentition, MMM. Neck: Supple, trachea midline, no enlargement of anterior or posterior cervical nodes, no thyroid masses or goiter palpable. Cardio: Regular rate and rhythm, s1 and s2 normal, no murmur a
== END 2022-02-01 19:44 | disposition home or self-care (01) ==
PROVIDERS: Emergency Provider Nurse Practitioner Family; PCP Physician Assistant
DX: U07.1 COVID-19 (principal); J44.9 Chronic obstructive pulmonary disease, unspecified; K70.2 Alcoholic fibrosis and sclerosis of liver; K21.9 Gastro-esophageal reflux disease without esophagitis; E78.5 Hyperlipidemia, unspecified; I10 Essential (primary) hypertension
CPT/HCPCS: 87426; 99213; C9803; G0463

== ENCOUNTER 2022-06-11 15:49 | Observation (INO) | payer OTHER, SELFPAY ==
[2022-06-11 16:17] VITALS: BP 132/71; PULSE 72; RESP 18; TEMP 36.5; O2SAT 99
[2022-06-11 17:10] LABS: Basophils Absolute Auto 0.1 K/mm3 (0.0-0.1); Basophils Percent Auto 1.2 % (0.2-1.2); Eosinophils Absolute Auto 0.2 K/mm3 (0-0.3); Eosinophils Percent Auto 2.2 % (0-4.4); Hematocrit 30.8 % (42.0-52.0); Hemoglobin 10.1 g/dL (14.0-18.0); Immature Granulocyte Absolute 0.07 K/mm3 (0.00-0.031); Immature Granulocyte Percent A 0.7 % (0-0.5); Lymphocytes Absolute Auto 2.72 K/mm3 (0.9-3.2); Lymphocytes Percent Auto 26.5 % (18.3-44.2); Mean Corpuscular HGB Conc 32.8 g/dl (32-36); Mean Corpuscular Volume 97.5 fl (80-100); Mean Platelet Volume 9.4 fl (7.4-10.4); Monocytes Absolute Auto 1.2 K/mm3 (0.1-0.6); Monocytes Percent Auto 12.1 % (2.6-8.5); Neutrophils Absolute Auto 5.9 K/mm3 (1.3-6.7); Neutrophils Percent Auto 57.3 % (45.5-73.1); Platelet Count Result 324 k/mm3 (150-375); Red Blood Count 3.16 M/mm3 (4.6-6.20); White Blood Count 10.3 K/mm3 (4.5-10.0)
[2022-06-11 17:22] LABS: Alanine Aminotransferase 31 U/L (6-50); Alkaline Phosphatase 45 U/L (38-126); Anion Gap 12 mmol/L (8-16); Aspartate Amino Transferase 45 U/L (17-59); Bilirubin,Total 0.7 mg/dL (0.2-1.3); Blood Urea Nitrogen 19 mg/dL (9-20); Calcium 8.9 mg/dL (8.4-10.2); Carbon Dioxide 25 mmol/L (22-30); Chloride 92 mmol/L (98-107); Estimated CRCL calculation 44 ml/min; Estimated Glomerular Filt Rate 44; Glucose 164 mg/dL (65-110); Magnesium 0.6 mg/dL (1.6-2.3); Potassium 4.7 mmol/L (3.4-5.0); Sodium 129 mmol/L (137-145)
[2022-06-11 18:35] VITALS: PULSE 78; RESP 21
[2022-06-11 18:37] VITALS: BP 135/88; PULSE 74; RESP 16; O2SAT 100
--- NOTE | 2022-06-11 18:37 | ED.GENADULT ---
HPI - General Adult General Chief complaint: Recheck/Abnormal Lab/Rx Stated complaint: ABNORMAL LABS Time Seen by Provider: 06/11/22 17:53 Source: patient and family Mode of arrival: wheelchair Limitations: no limitations History of Present Illness HPI narrative: 61-year-old with a history of hypertension, hypomagnesemia, COPD here with complaints of nausea which has been ongoing for several weeks to months. However for the past 1 month he states that he is been sick to his stomach all the time. Patient states that he has not stepped out of his house for past 1 month because of his nausea. He states that he seen his primary doctor yesterday had lab work done which showed low magnesium level. Patient states that he has been taking oral magnesium on a daily basis. He also states that he has been having constant diarrhea for which he takes antidiarrheal. No history of fever or chills. Onset (ago): month(s) Severity: moderate Exacerbating factors: none Associated symptoms: other (Leg cramps) Related Data Home Medications Medication Instructions Recorded Confirmed Symbicort 2 puff inhalation BID 02/29/20 02/22/21 albuterol sulfate 2 puff inhalation PRN 02/29/20 02/22/21 amlodipine 5 mg BYMOUTH DAILY 02/29/20 02/22/21 fenofibrate 145 mg BYMOUTH DAILY 02/29/20 02/22/21 lisinopril 20 mg BYMOUTH DAILY 02/29/20 02/22/21 metoprolol tartrate 25 mg BYMOUTH BID 02/29/20 02/22/21 spironolactone 50 mg tablet mg 02/01/22 tiotropium bromide 18 mcg capsule inhalation 02/01/22 with inhalation device (Spiriva with HandiHaler) Allergies Allergy/AdvReac Type Severity Reaction Status Date / Time No Known Allergies Allergy Verified 02/22/21 17:00 Review of Systems Review of Systems: All systems reviewed & are unremarkable except as noted in HPI and below Constitutional: Constitutional: Reports no additional constitutional complaints Eyes: Eyes: Reports no additional eye complaints ENT: Reports system reviewed and no additional complaints, except as documented Cardiovascular: Cardiovascular: Reports no additional cardiovascular complaints Respiratory: Respiratory: Reports no additional respiratory complaints Gastrointestinal: Gastrointestinal: Reports as per HPI Musculoskeletal: Musculoskeletal: Reports no additional musculoskeletal complaints Neurologic: Reports system reviewed and no additional complaints, except as documented Psychiatric: Psychiatric: Reports no additional psychiatric complaints PMFSH Past Medical History Medical History COPD (chronic obstructive pulmonary disease) Diarrhea Erosive gastritis 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 GERD (gastroesophageal reflux disease) Hepatitis C History of anemia Hyperlipidemia Hypertension Surgical History Surgical History H/O shoulder surgery History of laparoscopic cholecystectomy Hx of appendectomy Family History Family History Father Diabetes mellitus Hypertension Mother Hypertension Social History Social History Smoking packs per day: 1 Smoking cigarettes per day: 20.0 Years smoked: 44 Smoking pack-years: 44.00 Smoking status: Former smoker Tobacco type: cigarettes Second hand tobacco smoke exposure: No Smoking end date: 12/04/15 Alcohol intake: current Drinks per week: 8 Substance use: current Substance use type: crack/cocaine Other substance usage details: uses cocaine about once per month Gender identity (if verbalized by the patient): Male Sexual Orientation (if Verbalized by the Patient): Straight or Heterosexual Spiritual care concerns: No Exam Narrative: GENERAL: Well-appearing, well-nourished, and in no acute distress. HEAD: Normocephalic, atraumatic. EYE
[2022-06-11 18:45] VITALS: PULSE 71; RESP 14; O2SAT 98
[2022-06-11] MEDS: MAGNESIUM SULF 4 GM/WATER100ML 4 GM/100 ML BAG IVPB (18:46)
[2022-06-11] MEDS: SODIUM CHLORIDE 0.9% IV 1,000 ML 999 ML IV CONT (18:46)
[2022-06-11 20:27] LABS: Influenza A QL RT-PCR Negative (Negative); Influenza B QL RT-PCR Negative (Negative); SARS-CoV-2 RNA PCR Negative
[2022-06-11] MEDS: SODIUM CHLORIDE 0.9% IV 1,000 ML 125 ML IV CONT (20:30)
[2022-06-11 21:58] VITALS: BP 125/74; PULSE 78; RESP 16; TEMP 36.4; O2SAT 98
[2022-06-11 22:00] VITALS: BMI 32.5
[2022-06-11 22:08] VITALS: BMI 32.5
--- NOTE | 2022-06-11 22:15 | ADMGEN ---
This patient, Darrel Mayorga Jr., was admitted to Medical Room [facility]- at 2146. Patient/family oriented to hospital policies and general routines including ID bracelet, bed and alarms, visiting hours, pain management, procedures, bathroom and other care routines, personal items, smoking policy, room service/diet, and visiting hours. Information on how to activate the Rapid Response Team has been discussed. Patient/Family are encouraged to report perceived risks to care and to ask questions if they do not understand what they are told or what they should do.
--- NOTE | 2022-06-11 22:58 | PM.IMHP ---
H&P: HPI History of Present Illness Date/Time: 06/11/22 21:00 Chief Complaint: nausea, vomiting and weakness Narrative: 61-year-old male with past medical history of essential hypertension, GERD, COPD, hepatitis C, gastritis, prior hypo magnesemia and chronic alcohol abuse who presented to the ER with 6 month history of nausea, decreased appetite and dry heaves. The patient states that his nausea mostly occurs when he wakes up in the morning. It is accompanied by frequent episodes of reflux of his stomach contents but denies symptoms of actual heartburn. He does take omeprazole at home. He had a prior EGD in 2019 which demonstrated gastritis at that time was recommended that he stop drinking alcohol and using cocaine. He still drinks 4 beers a day and One or 2 mixed drinks a day. He reports that he has went up to 2 weeks without drinking and denies ever having any symptoms of alcohol withdrawal. He reports that he really has not been vomiting but just has the nausea with dry heaves. He does have chronic diarrhea ever since he had his gallbladder taken out approximately 4 years ago. He takes 1 Imodium a day after he has his morning bowel movement to help control his diarrhea. He usually only has a couple of bowel movement today as long as he takes the Imodium. He reports that his stool is usually technical operations specialist brown in color and that the toilet water well often be green which he thinks is due to bile. He states that he has been taking some Phenergan that he got from a friend which has helped with his nausea. He reports that his sister gave him 1 dose of a pill that is supposed to help him find his bile salts but he was afraid that this medication would give him constipation so he did not take any more of it. He has been compliant with his home p.o. magnesium supplement. He reports that his magnesium was around 0.5 about 6 months ago. He is frustrated he was not admitted to the hospital at that time for IV magnesium replacement. He feels that his magnesium being low is what is caused his current GI symptoms. He also reports symptoms of frequent muscle cramps cut and generalized fatigue. He has chronic low back pain. He has noticed over recent months that he has developed symptoms of weak urinary stream and has to start and stop his urinary stream multiple times to empty his bladder completely. He denies any dysuria or hematuria. He reports chronic shortness of breath associated with his COPD but denies any exacerbation of his symptoms, cough, fever or chills. He has chronic anemia but his hemoglobin is at baseline. he does occasionally use recreational cocaine. He reports that his last use was about a week ago. He states that he will sometimes go a month or 2 without any drug use. Review of Systems Review of Systems: 12 systems were reviewed with pertinent positives and negatives per HPI. Except as documented in the HPI, all other systems were reviewed and are negative. 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 He never had any children. He used to smoke 1.5 packs of cigarettes per day fo
[2022-06-11 23:11] LABS: Sodium 130 mmol/L (137-145)
[2022-06-12] VITALS (9 sets, daily range): BP systolic 106–144; BP diastolic 56–79; PULSE 73–92; RESP 16–18; TEMP 36.6–37; O2SAT 96–100
[2022-06-12] MEDS: TAMSULOSIN HCL 0.4 MG CAPSULE PO ×2 (00:06→09:08)
[2022-06-12 00:18] LABS: Ethanol < 10 mg/dL (<10)
[2022-06-12] MEDS: CHOLESTYRAMINE LIGHT 4 GM POWD.PACK PO ×3 (01:22→17:59)
[2022-06-12 03:45] LABS: Hemoglobin 9.3 g/dL (14.0-18.0); Mean Corpuscular HGB Conc 33.2 g/dl (32-36); Mean Corpuscular Hemoglobin 32.6 pg (26-34); Mean Corpuscular Volume 98.2 fl (80-100); Mean Platelet Volume 9.1 fl (7.4-10.4); Platelet Count Result 261 k/mm3 (150-375); Red Blood Count 2.85 M/mm3 (4.6-6.20); White Blood Count 7.6 K/mm3 (4.5-10.0)
[2022-06-12 03:57] LABS: Anion Gap 7 mmol/L (8-16); Blood Urea Nitrogen 18 mg/dL (9-20); Calcium 7.7 mg/dL (8.4-10.2); Carbon Dioxide 23 mmol/L (22-30); Chloride 102 mmol/L (98-107); Estimated CRCL calculation 51 ml/min; Estimated Glomerular Filt Rate 52; Glucose 168 mg/dL (65-110); Magnesium 1.6 mg/dL (1.6-2.3); Phosphorus 2.7 mg/dL (2.5-4.5); Potassium 4.4 mmol/L (3.4-5.0); Sodium 132 mmol/L (137-145)
[2022-06-12] MEDS: SODIUM CHLORIDE 0.9% IV 1,000 ML 125 ML IV CONT ×2 (06:32→16:53)
[2022-06-12 08:30] LABS: Sodium 130 mmol/L (137-145)
[2022-06-12] MEDS: FLUTICASONE/SALMETEROL 115-21 MCG INHALER 1 PUFF 2 PUFF INHALATION ×2 (08:48→22:02)
[2022-06-12] MEDS: UMECLIDINIUM BROMIDE 62.5 MCG ELLIPTA 1 PUFF INHALATION (08:48)
[2022-06-12] MEDS: ENOXAPARIN 40 MG/0.4 ML SYRINGE SUB-Q (09:04)
[2022-06-12] MEDS: amLODIPine BESYLATE 5 MG TABLET BY MOUTH (09:05)
[2022-06-12] MEDS: METOPROLOL TARTRATE 25 MG TABLET BY MOUTH (09:05)
[2022-06-12] MEDS: FENOFIBRATE NANOCRYSTALLIZED 145 MG TABLET BY MOUTH (09:05)
[2022-06-12] MEDS: lisinopriL 20 MG TABLET BY MOUTH (09:05)
[2022-06-12] MEDS: FOLIC ACID 1 MG TABLET PO (09:08)
[2022-06-12] MEDS: MAGNESIUM OXIDE 400 MG TABLET 800 MG PO (09:08)
[2022-06-12] MEDS: SPIRONOLACTONE 50 MG TABLET PO (09:08)
[2022-06-12] MEDS: PANTOPRAZOLE 40 MG TABLET PO (09:08)
--- NOTE | 2022-06-12 11:06 | PM.IMPN ---
Progress Note: A&P Assessment and Plan (1) Hypomagnesemia: Code(s): E83.42 - Hypomagnesemia Status: Acute Assessment and Plan: Still low, reordered more, recheck in the morning, discharge of over 2 (2) NATALY (acute kidney injury): Code(s): N17.9 - Acute kidney failure, unspecified Status: Acute Assessment and Plan: Stable (3) Intractable nausea and vomiting: Code(s): R11.2 - Nausea with vomiting, unspecified Status: Acute Assessment and Plan: Resolved (4) Dehydration: Code(s): E86.0 - Dehydration Status: Acute Assessment and Plan: Resolved with IV fluids (5) Alcohol abuse: Code(s): F10.10 - Alcohol abuse, uncomplicated Status: Chronic Assessment and Plan: Patient not interested in quitting, extensive discussion regarding need to quit alcohol (6) BPH without obstruction/lower urinary tract symptoms: Code(s): N40.0 - Benign prostatic hyperplasia without lower urinary tract symptoms Status: Acute Assessment and Plan: Continue Flomax (7) Hyponatremia: Code(s): E87.1 - Hypo-osmolality and hyponatremia Status: Acute Plan DVT prophylaxis with Lovenox GI prophylaxis with PPI Code status full code Subjective Date/time seen: 06/12/22 11:06 Interval history: No overnight events noted. No chest pain or shortness of breath. No nausea, vomiting or diarrhea. No fevers or chills. Review of Systems Review of Systems: 12 point review of systems was assessed and was negative except as noted in the HPI Exam Narrative: General: No acute distress, alert and oriented per baseline HEENT: Atraumatic, normocephalic, mucous membranes moist CV: Regular rate and rhythm, S1, S2 Lungs: Clear to auscultation bilaterally, no rales or crackles noted, no wheezes, good air entry Abdomen: Soft, nontender, nondistended Extremities: Normal to inspection Skin: No rashes noted, no lesions or wounds seen Psych: Euthymic, normal affect Objective Data Vital Signs Vital Signs: Vital Signs - 24 hr 06/11/22 16:17 06/11/22 18:35 06/11/22 18:37 Temperature 97.7 F Pulse Rate 72 78 74 Respiratory Rate 18 21 H 16 Blood Pressure 132/71 135/88 Pulse Oximetry 99 100 Oxygen Delivery 06/11/22 18:45 06/11/22 21:58 06/11/22 22:45 Temperature 97.6 F Pulse Rate 71 78 Respiratory Rate 14 16 Blood Pressure 125/74 Pulse Oximetry 98 98 Oxygen Delivery Room Air 06/12/22 01:00 06/12/22 07:00 06/12/22 08:00 Temperature 98.1 F 98.1 F 97.9 F Pulse Rate 78 80 Respiratory Rate 16 18 18 Blood Pressure 120/61 144/79 H 134/70 Pulse Oximetry 98 100 99 Oxygen Delivery 06/12/22 08:50 06/12/22 09:05 Temperature Pulse Rate 92 Respiratory Rate Blood Pressure Pulse Oximetry 96 Oxygen Delivery Room Air Intake/Output Intake/Output: Intake & Output 06/09/22 06/10/22 06/11/22 06/12/22 23:59 23:59 23:59 23:59 Intake Total 1100 1960 Balance 1100 1960 Meds/Results Medications: Active Medications Generic Name Dose Route Start Last Admin Trade Name Freq PRN Reason Stop Dose Admin Acetaminophen 650 mg 06/11/22 18:35 Acetaminophen 325 Mg Tablet PO Q4H PRN Mild Pain (1-3) or Fever Amlodipine Besylate 5 mg 06/12/22 09:00 06/12/22 09:05 Amlodipine Besylate 5 Mg Tablet BY MOUTH 07/12/22 08:59 5 mg DAILY RANDI Administration Cholestyramine Resin 4 gm 06/11/22 23:00 06/12/22 01:22 Cholestyramine Light 4 Gm Powd.Pack PO 4 gm BID@1000,1800 RADNI Administration Enoxaparin Sodium 40 mg 06/12/22 09:00 06/12/22 09:04 Enoxaparin 40 Mg/0.4 Ml Syringe SUB-Q 40 mg DAILY RANDI Administration Fenofibrate 145 mg 06/12/22 09:00 06/12/22 09:05 Fenofibrate Nanocrystallized 145 Mg Tablet BY MOUTH 07/12/22 08:59 145 mg DAILY RANDI Administration Folic Acid 1 mg 06/12/22 09:00 06/12/22 09:08 Folic Acid 1 Mg Tablet PO 1
[2022-06-12 15:04] LABS: Anion Gap 8 mmol/L (8-16); Blood Urea Nitrogen 14 mg/dL (9-20); Carbon Dioxide 23 mmol/L (22-30); Chloride 102 mmol/L (98-107); Estimated CRCL calculation 51 ml/min; Estimated Glomerular Filt Rate 52; Glucose 170 mg/dL (65-110); Magnesium 1.5 mg/dL (1.6-2.3); Potassium 4.4 mmol/L (3.4-5.0); Sodium 133 mmol/L (137-145)
[2022-06-12] MEDS: MAGNESIUM SULF 4 GM/WATER100ML 4 GM/100 ML BAG IVPB (18:03)
[2022-06-13] MEDS: SODIUM CHLORIDE 0.9% IV 1,000 ML 125 ML IV CONT ×2 (02:04→10:32)
[2022-06-13 04:07] VITALS: BP 132/67; PULSE 89; RESP 17; TEMP 36.4; O2SAT 97
[2022-06-13 08:45] VITALS: BP 138/90; PULSE 94; RESP 17; O2SAT 96
[2022-06-13] MEDS: FENOFIBRATE NANOCRYSTALLIZED 145 MG TABLET BY MOUTH (08:47)
[2022-06-13] MEDS: lisinopriL 20 MG TABLET BY MOUTH (08:47)
[2022-06-13] MEDS: FOLIC ACID 1 MG TABLET PO (08:47)
[2022-06-13] MEDS: MAGNESIUM OXIDE 400 MG TABLET 800 MG PO (08:47)
[2022-06-13] MEDS: amLODIPine BESYLATE 5 MG TABLET BY MOUTH (08:47)
[2022-06-13 08:48] VITALS: PULSE 98
[2022-06-13] MEDS: PANTOPRAZOLE 40 MG TABLET PO (08:48)
[2022-06-13] MEDS: SPIRONOLACTONE 50 MG TABLET PO (08:48)
[2022-06-13] MEDS: METOPROLOL TARTRATE 25 MG TABLET BY MOUTH (08:48)
[2022-06-13] MEDS: TAMSULOSIN HCL 0.4 MG CAPSULE PO (08:48)
[2022-06-13] MEDS: ENOXAPARIN 40 MG/0.4 ML SYRINGE SUB-Q (08:48)
[2022-06-13] MEDS: CHOLESTYRAMINE LIGHT 4 GM POWD.PACK PO (10:32)
[2022-06-13 10:53] LABS: Alanine Aminotransferase 25 U/L (6-50); Albumin Level 4.4 g/dL (3.5-5.1); Alkaline Phosphatase 50 U/L (38-126); Anion Gap 9 mmol/L (8-16); Aspartate Amino Transferase 31 U/L (17-59); Bilirubin,Total 0.7 mg/dL (0.2-1.3); Blood Urea Nitrogen 10 mg/dL (9-20); Calcium 7.8 mg/dL (8.4-10.2); Carbon Dioxide 21 mmol/L (22-30); Chloride 101 mmol/L (98-107); Estimated CRCL calculation 55 ml/min; Estimated Glomerular Filt Rate 56; Glucose 180 mg/dL (65-110); Magnesium 1.9 mg/dL (1.6-2.3); Potassium 4.5 mmol/L (3.4-5.0); Sodium 131 mmol/L (137-145)
[2022-06-13] MEDS: FLUTICASONE/SALMETEROL 115-21 MCG INHALER 1 PUFF 2 PUFF INHALATION (12:46)
[2022-06-13] MEDS: UMECLIDINIUM BROMIDE 62.5 MCG ELLIPTA 1 PUFF INHALATION (12:46)
--- NOTE | 2022-06-13 13:23 | PM.DS ---
DS: Admitting Diagnosis Discharge Date 06/13/2022 Admitting Diagnosis cyclical vomiting. Hypokalemia DS: Discharge Diagnosis Discharge Diagnosis (1) Nausea & vomiting: Qualifiers: Vomiting type: unspecified Vomiting Intractability: non-intractable Qualified Code(s): R11.2 - Nausea with vomiting, unspecified Code(s): R11.2 - Nausea with vomiting, unspecified Status: Resolved Assessment and Plan: He reported N/V prior to presentation to ED. Etiology unclear. No evidence of underlying infection. CT a/p unremarkable. He remained afebrile. May have been secondary to alcohol use. N/V resolved and he was able to tolerate a regular diet. (2) Hypomagnesemia: Code(s): E83.42 - Hypomagnesemia Status: Acute Assessment and Plan: Magnesium p.o. started will follow up as an outpatient repeat levels. Recommended 2 tablets of 400 mg q.dayk. (3) Hypokalemia: Code(s): E87.6 - Hypokalemia Status: Acute Assessment and Plan: Potassium low upon presentation. Potassium replaced . (4) COPD (chronic obstructive pulmonary disease): Qualifiers: COPD type: unspecified COPD Qualified Code(s): J44.9 - Chronic obstructive pulmonary disease, unspecified Code(s): J44.9 - Chronic obstructive pulmonary disease, unspecified Status: Chronic Assessment and Plan: Not in acute exacerbation at this time. Lungs clear to auscultation and patient maintained adequate oxygen saturations on room air. Continue bronchodilators. (5) Alcohol abuse: Code(s): F10.10 - Alcohol abuse, uncomplicated Status: Chronic Assessment and Plan: Patient drinks 8 beers nightly. CIWA protocol was in place and patient had scores ranging 2-3. He had no signs of alcohol withdrawal (following seizure). I discussed with him in depth the need for alcohol cessation but he is uninterested in quitting drinking. Care coordination met with patient to provide resources should patient decide to pursue alcohol cessation in the future. He was started on thiamine and folic acid supplementation. (6) Dehydration: Code(s): E86.0 - Dehydration Status: Acute Assessment and Plan: Secondary to decreased oral intake, nausea, and vomiting. He was rehydrated with IV fluids. PO intake improved. DS: Summary Hospital Course Reason for hospitalization: long-acting vomiting Hospital Course: 61 year male admitted to the hospital with history of hypertension, COPD, hepatitis-C, gastritis. She has patient has history of chronic alcohol abuse associated with decreased appetite and dry heaving 6. Patient states that his had some abdominal burning he had some omeprazole at home he took few pills did not get better. Previously had a EGD done in 2019 showed gastritis patient did stop drinking but now still uses beer and cocaine together. She patient vomiting has gotten better patient has does have chronic diarrhea, patient had the gallbladder removed. Patient also tried Phenergan for nausea and vomiting patient has been advised double up on the magnesium levels and repeat levels as an outpatient with the PCPs office patient's has chronic low back pain. Also history of COPD advised patient to continue inhalers and monitor blood pressure closely Status at Discharge Cognitive/behavioral status at discharge: stable Time Spent with Patient Time attestation: Total time spent providing and/or coordinating discharge services: Exam Narrative: General: No acute distress, alert and oriented per baseline HEENT: Atraumatic, normocephalic, mucous membranes moist CV: Regular rate and rhythm, S1, S2 Lungs: Clear to auscultation bilaterally, no rales or crackles noted, no wheezes, good air entry Abdomen: Soft, nontender, nondistended Extremities: Normal to inspection Skin: No rashes noted, no lesions or wounds seen Psych: Euthymic, normal affect DS: Thompson
== END 2022-06-13 14:25 | disposition home or self-care (01) ==
LOC: ANHED 18:51 → ANH2MED 06-12 00:53 → ANH3MEDSUR 06-15 15:15
PROVIDERS: Emergency Medicine; Student in an Organized Health Care Education/Training Program; Admitting Provider Internal Medicine; Emergency Provider Family Medicine; PCP Physician Assistant; Visit Provider Internal Medicine
DX: E83.42 Hypomagnesemia (principal); E87.6 Hypokalemia; J44.9 Chronic obstructive pulmonary disease, unspecified; F10.10 Alcohol abuse, uncomplicated; E86.0 Dehydration; Y90.0 Blood alcohol level of less than 20 mg/100 ml; R19.7 Diarrhea, unspecified; K21.9 Gastro-esophageal reflux disease without esophagitis; E78.5 Hyperlipidemia, unspecified; N17.9 Acute kidney failure, unspecified; I10 Essential (primary) hypertension; Z20.822 Contact with and (suspected) exposure to COVID-19; N40.0 Benign prostatic hyperplasia without lower urinary tract symptoms; K29.60 Other gastritis without bleeding; F14.90 Cocaine use, unspecified, uncomplicated; Z87.891 Personal history of nicotine dependence; Z86.19 Personal history of other infectious and parasitic diseases; Z79.51 Long term (current) use of inhaled steroids; Z79.899 Other long term (current) drug therapy; Z82.49 Family history of ischemic heart disease and other diseases of the circulatory system
CPT/HCPCS: 36415; 80048; 80053; 80307; 83735; 84100; 84295; 85025; 85027; 87636; 94640; 96360; 96361; 96365; 96366; 96372; 96374; 99285; A9270; G0378; G0379; J1650; J3475; J7030

== ENCOUNTER 2022-07-01 14:54 | Outpatient (CLI) | payer OTHER, SELFPAY ==
--- NOTE | ~2022-07-01 | CT_ITS ---
CT scan of the Neck Technique: 2.5 mm axial scans were obtained through the neck without IV contrast administration. Khadijah nal and sagittal reconstructions of the neck were obtained. Dose reduction technique was used on this scan by utilizing automated exposure control and iterative reconstruction technique. The dose-length product (DLP) was 461.97 mGy-cm. Clinical History: Supraclavicular lymphadenopathy Findings: There is no evidence of any significant cervical lymphadenopathy. No supraclavicular lymphadenopathy seen. Several small, nonenlarged jugulo- digastric and posterior cervical lymph nodes are noted bilat erally. Parapharyngeal spaces appear normal bilaterally. The parotid and submandibular glands appear normal. The pharyngeal mucosal spaces appear normal. No soft tissue masses are seen in the neck. The thyroid gland appears normal. Images of the lung apices reveal no abnormalities. Impression: No significant abnormalities noted. Reviewed, dictated and finalized at [facility]. AUDITOR Impression: No significant abnormalities noted.
== END 2022-07-01 14:55 | disposition home or self-care (01) ==
LOC: ANHIMG 14:57
PROVIDERS: PCP Physician Assistant; Visit Provider Physician Assistant
DX: R59.0 Localized enlarged lymph nodes (principal)
CPT/HCPCS: 70490

== ENCOUNTER 2022-09-11 15:03 | Outpatient (CLI) | payer OTHER, SELFPAY ==
--- NOTE | ~2022-09-11 | CT_ITS ---
EXAMINATION: CT lung screening DATE: 09/11/2022 15:24 INDICATION: NICOTINE DEPENDENCE TECHNIQUE: Computed tomography (CT) of the chest was performed without intravenous contrast. Addition al 3D reconstructions utilizing coronal maximum intensity projection (MIP) were performed. Automated exposure control and iterative reconstruction technique were employed. The dose-length product was 16 2.97 mGy-cm. COMPARISON: Chest CT dated 06/09/2021 and 01/15/2015 FINDINGS: There are couple tiny calcified pulmonary nodules in the left upper and lower lobes consistent with o ld granulomatous disease. There are few additional scattered bilateral 2 mm or smaller noncalcified p ulmonary nodules, the majority which appear to have been present on 01/15/2015. Minimal basilar and de pendent atelectasis in the right lower lobe. No pneumonia, pulmonary edema or pleural effusion. Heart size is normal. Atherosclerotic coronary artery calcification is. No pericardial effusion. Thoracic aorta is normal in caliber. No pathologically enlarged thoracic lymphadenopathy. Bilateral gynecomast ia. Small amount of pneumobilia in the common bile duct and a few complex and the left hepatic lobe l ikely related to prior cholecystectomy and centrally with surgical clips the gallbladder fossa. Mild lower thoracic kyphosis with chronic mild anterior wedging of a few mid to lower thoracic vertebral b odies where there is severe spondylosis. Additional severe spondylosis at the lower cervical spine. IMPRESSION: 1. Lung-RADS category 2: Benign appearance or behavior. Continue annual screening with noncontrast lo w-dose chest CT in 12 months. Reviewed, dictated and finalized at location A. ER HIDES IMPRESSION: 1. Lung-RADS category 2: Benign appearance or behavior. Continue annual screeni ng with noncontrast low-dose chest CT in 12 months.
== END 2022-09-11 15:04 | disposition home or self-care (01) ==
PROVIDERS: PCP Physician Assistant; Visit Provider Physician Assistant
DX: Z12.2 Encounter for screening for malignant neoplasm of respiratory organs (principal); Z87.891 Personal history of nicotine dependence
CPT/HCPCS: 71271

== ENCOUNTER 2022-10-14 02:44 | Day surgery (SDC) | payer OTHER, SELFPAY ==
[2022-10-01 13:34] VITALS: BMI 32.1
--- NOTE | 2022-10-14 08:46 | WPDANESEPPF ---
Anes - Initial Pre Proc Eval Procedure: Operation Date: 10/14/22 10:15 Proposed Procedures p Esophagogastroduodenoscopy & Screening Colonoscopy - Jose Concepcion MD Date/Time: 10/14/22 08:46 Surgeon: Jose Concepcion MD Pre Op Diagnosis: GERD, Neoplasm screening Patient Data Age: 62 Gender: M Height: 1.65 m Weight: 87.75 kg Allergies Allergy/AdvReac Type Severity Reaction Status Date / Time No Known Allergies Allergy Verified 10/01/22 13:26 Home Medications Medication Instructions Recorded Confirmed Type folic acid 1 mg tablet 1 mg PO DAILY #30 tabs 06/27/20 10/01/22 Rx spironolactone 50 mg tablet 50 mg PO DAILY 02/01/22 10/01/22 History tiotropium bromide 18 mcg capsule 18 mcg inhalation ONCE 02/01/22 10/01/22 History with inhalation device (Spiriva with HandiHaler) albuterol sulfate 90 mcg/actuation 2 puff inhalation PRN 10/01/22 10/01/22 History aerosol inhaler amlodipine 5 mg tablet 5 mg PO DAILY 10/01/22 10/01/22 History budesonide-formoterol HFA 160 2 puff inhalation BID 10/01/22 10/01/22 History mcg-4.5 mcg/actuation aerosol inhaler (Symbicort) cyanocobalamin (vitamin B-12) 1,000 mcg IM [id number] 10/01/22 10/01/22 History 1,000 mcg/mL injection solution (Dodex) ergocalciferol (vitamin D2) 1,250 50,000 unit PO WEEKLY 10/01/22 10/01/22 History mcg (50,000 unit) capsule fenofibrate nanocrystallized 145 145 mg PO DAILY 10/01/22 10/01/22 History mg tablet lisinopril 20 mg tablet 20 mg PO DAILY 10/01/22 10/01/22 History magnesium oxide 400 mg (241.3 mg 400 mg PO BID 10/01/22 10/01/22 History magnesium) tablet metoprolol tartrate 25 mg tablet 25 mg PO DAILY 10/01/22 10/01/22 History omeprazole 20 mg capsule,delayed 20 mg PO DAILY 10/01/22 10/01/22 History release Patient hx anesthesia problems: none Family hx anesthesia problems: none Results Review: All pre-operative results and documents have been reviewed as part of the pre-operative evaluation. 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 He never had any children. He used to smoke 1.5 packs of cigarettes per day for 47 years. He is currently on disability due to degenerative disc disease of his back. 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 he drinks 4-6 beers a day and 1-2 mixed drinks a day. He uses cocaine on occasion. Code status: Full code ( although the patient states he would not want to be on ventilator long-term or have a feeding tube) surrogate decision maker: Paramjit (sisters) Smoking packs per day: 1 Smoking cigarettes per day: 20.0 Years smoked: 44 Smoking pack-years: 44.00 Smoking status: Former smoker Tobacco type: cigarettes Second hand tobacco smoke exposure: No Smoking end date: 12/04/15 Alcohol intake: current Drinks per week: 35 Alcohol use details: BEERS [employer] COCKTAILS Substance use: current Substance use type: marijuana Other substance usage details: OCC. Lack of Transportation: No Lack of Food: Never True Current Housing: I Have Housing Concerned About Futur
[2022-10-14 08:58] VITALS: BP 123/64; PULSE 91; RESP 18; TEMP 36.1; O2SAT 99
[2022-10-14] MEDS: LACTATED RINGERS 1,000 ML 150 ML IV CONT (09:09)
--- NOTE | 2022-10-14 09:50 | PM.HPGS ---
History of Present Illness History of Present Illness Consent: Risks, benefits, and alternatives have been discussed and questions answered. Patient agrees to proceed with procedure. Chief complaint: GERD, Neoplasm screening Narrative: Darrel Mayorga Jr. is a 62 year old male with daily nausea, he is still drinking daily but cut down. Had gastritis few years ago on ppi daily, also diarrhea and he has low Mag for which required iv treatment. Last colonoscopy 7 years ago, previous one to that had polyp. Also h/o HCV but treated successfully Review of Systems Constitutional: Constitutional: Denies headache(s) and Denies weakness Eyes: Eyes: Denies blurry vision ENT: Reports Normal hearing present, Denies headache(s) and Denies neck pain Cardiovascular: Cardiovascular: Denies chest pain and Denies dyspnea Respiratory: Respiratory: Denies dyspnea Gastrointestinal: Gastrointestinal: Reports no additional gastrointestinal complaints Genitourinary: Genitourinary: Denies dysuria Musculoskeletal: Musculoskeletal: Reports back pain Integumentary/Breasts: Skin/Breast: Denies dry skin Neurologic: Reports Normal hearing present, Denies headache(s) and Denies weakness Psychiatric: Psychiatric: Denies anxiety Endocrine: Endocrine: Denies change in body appearance Hematologic/Lymphatic: Hematologic/Lymphatic: Denies easy bleeding Allergic/Immunologic: Allergic/Immunologic: Denies urticaria PMFSH Past Medical History Medical History (Updated 06/11/22 @ 23:20 by Esther Hoover DO) COPD (chronic obstructive pulmonary disease) Diarrhea Erosive gastritis 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 He never had any children. He used to smoke 1.5 packs of cigarettes per day for 47 years. He is currently on disability due to degenerative disc disease of his back. 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 he drinks 4-6 beers a day and 1-2 mixed drinks a day. He uses cocaine on occasion. Code status: Full code ( although the patient states he would not want to be on ventilator long-term or have a feeding tube) surrogate decision maker: Paramjit (sisters) Smoking packs per day: 1 Smoking cigarettes per day: 20.0 Years smoked: 44 Smoking pack-years: 44.00 Smoking status: Former smoker Tobacco type: cigarettes Second hand tobacco smoke exposure: No Smoking end date: 12/04/15 Alcohol intake: current Drinks per week: 35 Alcohol use details: BEERS [employer] COCKTAILS Substance use: current Substance use type: marijuana Other substance usage details: OCC. Lack of Transportation: No Lack of Food: Never True Current Housing: I Have Housing Concerned About Future Housing: Decline to Answer Difficulty Paying Gas/Electric Bills: No Difficulty Paying for Meds: No Currently Unemployed: No Education: Bachelor's Degree Difficulty w/ Childcare or Family Care: No Living arrangements: alone Occupation/Education: retired Gender identity (if verbalized by the patient): Male Sexual Orientation (if Verbalized by the Patient): Straight or Heterosexual Spiritual care concerns: No Meds Home Medications and Allergies Home Medications Medication Instructions Recorded Confirmed Type folic acid 1 mg ta
--- NOTE | 2022-10-14 10:11 | SUR.OPER ---
EGD: [id number] COLON: [id number]
[2022-10-14 10:16] VITALS: BP 125/102; PULSE 64; RESP 19; O2SAT 97
[2022-10-14 10:26] VITALS: BP 90/53; PULSE 67; RESP 12; O2SAT 98
[2022-10-14 10:36] VITALS: BP 130/87; PULSE 62; RESP 14; O2SAT 100
== END 2022-10-14 10:48 | disposition home or self-care (01) ==
PROVIDERS: PCP Physician Assistant; Visit Provider Internal Medicine Gastroenterology
PROC: 0DJ08ZZ Inspection of Upper Intestinal Tract, Via Natural or Artificial Opening Endoscopic (ICD-10-PCS; CPT 43235; principal; 2022-10-14 10:15)
DX: R19.7 Diarrhea, unspecified (principal); D12.3 Benign neoplasm of transverse colon; D12.4 Benign neoplasm of descending colon; K57.30 Diverticulosis of large intestine without perforation or abscess without bleeding; K64.8 Other hemorrhoids; R11.2 Nausea with vomiting, unspecified; K21.9 Gastro-esophageal reflux disease without esophagitis; F10.10 Alcohol abuse, uncomplicated; E83.42 Hypomagnesemia; J44.9 Chronic obstructive pulmonary disease, unspecified; I10 Essential (primary) hypertension; E78.5 Hyperlipidemia, unspecified; Z86.19 Personal history of other infectious and parasitic diseases; Z87.891 Personal history of nicotine dependence; F12.90 Cannabis use, unspecified, uncomplicated; E66.9 Obesity, unspecified; Z68.31 Body mass index [BMI] 31.0-31.9, adult; Z79.51 Long term (current) use of inhaled steroids
CPT/HCPCS: 45385; 45380; 43239; 88305; J7120

== ENCOUNTER 2022-10-26 12:50 | Outpatient (CLI) | payer OTHER, SELFPAY ==
--- NOTE | ~2022-10-26 | US_ITS ---
EXAMINATION: US abdomen complete, US pelvic limited DATE: 10/26/2022 13:44 INDICATION: CHRONIC KIDNEY DISEASE TECHNIQUE: Multiple grayscale and Doppler ultrasound images of the abdomen were obtained. COMPARISON: Renal ultrasound 03/20/2020, CT abdomen pelvis 03/18/2020 and 02/29/2020. FINDINGS: The visualized portions of the pancreas are normal. The liver is normal size with increased echogenicity and normal echotexture. No surface nodularity. Pneumobilia. Normal hepatopetal flow in the main portal vein. The gallbladder is surgically absent. The common bile duct measures 2 mm. The v isualized portions of the aorta and inferior vena cava are normal. The right kidney measures 11.0 x 5.6 x 5.6 cm. The left kidney measures 11.6 x 6.6 x 4.9 cm. The kidn eys demonstrate normal parenchymal echogenicity and mild bilateral cortical thinning. Small simple ex ophytic right renal cyst. There is no hydronephrosis. The spleen is obscured, not adequately visualiz ed. The urinary bladder is incompletely distended which limits evaluation. IMPRESSION: Echogenic liver, most commonly due to steatosis but also can be seen with hepatitis and fibrosis. Sta tus post cholecystectomy. Pneumobilia, likely secondary to sphincterotomy. Mild bilateral renal corti [place] thinning. Spleen not visualized in this examination. Limited evaluation of the urinary bladder. Reviewed, dictated and finalized at location [facility]. IMPRESSION: Echogenic liver, most commonly due to steatosis but also can be seen with hepat itis and fibrosis. Status post cholecystectomy. Pneumobilia, likely secondary t o sphincterotomy. Mild bilateral renal cortical thinning. Spleen not visualized in this examination. Limited evaluation of the urinary bladder.
== END 2022-10-26 12:51 | disposition home or self-care (01) ==
PROVIDERS: PCP Physician Assistant; Visit Provider Internal Medicine Nephrology
DX: I12.9 Hypertensive chronic kidney disease with stage 1 through stage 4 chronic kidney disease, or unspecified chronic kidney disease (principal); N18.31 Chronic kidney disease, stage 3a; J44.9 Chronic obstructive pulmonary disease, unspecified; E83.42 Hypomagnesemia; E11.9 Type 2 diabetes mellitus without complications
CPT/HCPCS: 76700; 76857

== ENCOUNTER 2022-12-16 14:54 | Outpatient (CLI) | payer OTHER, SELFPAY ==
--- NOTE | 2022-12-16 | ECHO_ITS ---
Patient Info Name: Darrel Mayorga Age: 62 years : 1960 Gender: Male Accession #: $[id number]$ Ht: 65 in Wt: 193 lbs BSA: 2.04 m2 HR: 76 bpm BP: 145 / 82 mmHg Heart Rhythm: Sinus Rhythm Technical Quality: Fair Exam Date: 12/16/2022 3:23 PM Exam Location: [facility] Pulmonary Linux Kernel Engineer: Sy Jimenez RDCS Exam Type: CA echo doppler complete Study Info Indications - HTN Complete two-dimensional, color flow and Doppler transthoracic echocardiogram is performed. Summary 1. Complete two-dimensional, color flow and Doppler transthoracic echocardiogram is performed. 2. Left ventricular chamber dimension is normal. 3. Left ventricular systolic function is normal, estimated at 65-70%. 4. There is mildly increased left ventricular wall thickness. 5. The left ventricular diastolic function is normal. 6. There is no aortic valve stenosis. 7. There is trace mitral valve regurgitation. 8. There is trace tricuspid valve regurgitation. 9. No pulmonary hypertension, estimated pulmonary arterial systolic pressure is 7 mmHg. Left Ventricle Left ventricular chamber dimension is normal. Left ventricular systolic function is normal, estimated at 65-70%. There is mildly increased left ventricular wall thickness. The left ventricular diastolic function is normal. Right Ventricle Right ventricular chamber dimension is normal. Right ventricular systolic function is normal. Left Atria Left atrial chamber dimension is mildly enlarged. Right Atria Right atrial chamber dimension is normal. Aortic Valve The aortic valve is trileaflet. There is mild aortic valve sclerosis. There is no aortic valve stenosis. There is no aortic valve regurgitation. Pulmonic Valve The pulmonic valve is not well visualized. Mitral Valve The mitral valve has normal leaflets. There is trace mitral valve regurgitation. The mitral valve annulus is mildly calcified. Tricuspid Valve The tricuspid valve leaflets are normal. There is trace tricuspid valve regurgitation. No pulmonary hypertension, estimated pulmonary arterial systolic pressure is 7 mmHg. Pericardium/Pleural The pericardium appears normal. There is no pericardial effusion. Inferior Vena Cava Normal inferior vena cava with >50% collapse upon inspiration consistent with normal right atrial pressure, 5 mmHg. Aorta The aortic root size at the sinus of Valsalva is normal. There is mild aortic atherosclerosis. Left Ventricular Outflow Tract Name Value Normal LVOT 2D LVOT Diameter 2.03 cm LVOT Doppler LVOT Peak Gradient 4 mmHg LVOT Mean Gradient 2 mmHg LVOT VTI 21.01 cm LVOT VTI/AV VTI Ratio 1.00 LVOT Stroke Volume 67.98 ml LVOT CO 4.49 l/min LVOT CI 2.21 L/min/m2 Pulmonic Valve Name Value Normal RVOT Doppler RVOT Peak Gradient 1 mmHg
--- NOTE | 2022-12-17 12:28 | PCCARD ---
Paper documentation exists on this patient due to [employer] downtime on 12/16/22 from 0030 to [] 1930
== END 2022-12-16 14:55 | disposition home or self-care (01) ==
LOC: ANHCARD 14:55
PROVIDERS: PCP Physician Assistant; Visit Provider Internal Medicine Nephrology
DX: I12.9 Hypertensive chronic kidney disease with stage 1 through stage 4 chronic kidney disease, or unspecified chronic kidney disease (principal); N18.31 Chronic kidney disease, stage 3a; B18.2 Chronic viral hepatitis C; J44.9 Chronic obstructive pulmonary disease, unspecified; E83.42 Hypomagnesemia; E11.9 Type 2 diabetes mellitus without complications
CPT/HCPCS: 93306

== ENCOUNTER 2023-04-29 15:17 | Emergency (ER) | payer OTHER, SELFPAY ==
--- NOTE | ~2023-04-29 | XR_ITS ---
EXAMINATION: XR chest 2V 04/29/2023 16:07 INDICATION: Chest pain PROCEDURE: 2 view chest COMPARISON: 06/09/2021 FINDINGS: The lungs are clear. The cardiomediastinal silhouette is within normal limits. There are no pleural effusions. There is no pneumothorax suspected. IMPRESSION: 1: NO ACUTE CARDIOPULMONARY DISEASE. Reviewed, dictated and finalized at location L.
--- NOTE | ~2023-04-29 | CT_ITS ---
EXAMINATION: CTA chest abdomen pelvis DATE: 04/29/2023 16:38 INDICATION: Chest pain that radiates to the abdomen TECHNIQUE: Computed tomographic angiography (CTA) of the chest, abdomen, and pelvis was performed wit hout and with 100 mL Omnipaque-350 intravenous contrast. Automated exposure control and iterative rec onstruction technique were employed. The dose-length product was 989.01 mGy-cm. COMPARISON: Chest CT dated 09/11/[address] abdomen and pelvis dated 03/18/2020 FINDINGS: CHEST: Mild dependent atelectasis in the bilateral lower lobes. Small calcified nodule at the left lung base consistent with old granulomatous disease. Chronic 2 mm noncalcified granuloma in the anterior segme nt of the right upper lobe. No pneumonia, pulmonary edema, pleural effusion or pneumothorax. Heart si ze is normal. Atherosclerotic coronary artery calcific a cyst. No pericardial effusion. Thoracic aort a is normal in caliber with no dissection. No pathologically enlarged thoracic lymphadenopathy. Mild lower thoracic kyphosis with severe spondylosis. Chronic appearing mild anterior wedging at T8-T11. ABDOMEN AND PELVIS: Decrease in now minimal intrahepatic pneumobilia and unchanged mild dilation of the common bile duct to 9 mm, both findings which are within normal limits post cholecystectomy with sphincterotomy with s urgical clips the empty gallbladder fossa. Spleen, pancreas and bilateral adrenal glands are normal. Couple right renal cysts the larger measuring 2.1 cm. Very small cyst at the lower pole of the left k idney. Bowels are unremarkable aside from what appears be a small appendiceal stump at the tip the ap pendix without adjacent comparison to suggest appendicitis. Bladder is normal. Mild prostatomegaly. M oderate-sized bilateral fat-containing inguinal hernias. There is mild scattered calcified atheroscle rosis of the abdominal aorta and many of the other arteries without hemodynamically significant steno sis. No aneurysm or dissection. No free intraperitoneal gas or fluid. No pathologically enlarged abdo emanuel or pelvic lymphadenopathy. Moderate lumbar spondylosis. IMPRESSION: 1. Small amount of nonhemodynamically significant atherosclerotic plaque along the normal caliber tho racic and abdominal aorta with no aneurysm or dissection. 2. No acute cardiopulmonary disease or acute intra-abdominal/pelvic process. Reviewed, dictated and finalized at location A. IMPRESSION: 1. Small amount of nonhemodynamically significant atherosclerotic plaque along the normal caliber thoracic and abdominal aorta with no aneurysm or dissection. 2. No acute cardiopulmonary disease or acute intra-abdominal/pelvic process.
--- NOTE | 2023-04-29 15:18 | ECG_ITS ---
Measurements Intervals [place] Rate: 86 P: 45 HI: 176 QRS: -25 QRSD: 129 T: 5 QT: 363 QTc: 437 Interpretive Statements SINUS RHYTHM BORDERLINE LEFT AXIS DEVIATION [QRS AXIS < -20] RIGHT BUNDLE BRANCH BLOCK [120+ ms QRS DURATION, UPRIGHT V1, 40+ ms S IN I/aVL/V4/V5/V6] ABNORMAL ECG COMPARED TO ECG 06/09/2021 00:51:37 NO SIGNIFICANT CHANGES Electronically Signed On 04-30-2023 7:27:29 CDT by Irvin Gould M.D.
[2023-04-29 15:20] VITALS: BP 160/91; PULSE 93; RESP 16; TEMP 36.6; O2SAT 99
[2023-04-29] MEDS: ASPIRIN 81 MG CHEWABLE TABLET 324 MG PO (15:41)
[2023-04-29 15:59] LABS: Basophils Absolute Auto 0.1 K/mm3 (0.0-0.1); Basophils Percent Auto 0.9 % (0.2-1.2); Eosinophils Absolute Auto 0.1 K/mm3 (0-0.3); Eosinophils Percent Auto 1.2 % (0-4.4); Hematocrit 31.4 % (42.0-52.0); Immature Granulocyte Absolute 0.07 K/mm3 (0.00-0.031); Immature Granulocyte Percent A 0.8 % (0-0.5); Lymphocytes Absolute Auto 1.97 K/mm3 (0.9-3.2); Lymphocytes Percent Auto 23.2 % (18.3-44.2); Mean Corpuscular HGB Conc 31.8 g/dl (32-36); Mean Corpuscular Hemoglobin 32.3 pg (26-34); Mean Corpuscular Volume 101.3 fl (80-100); Mean Platelet Volume 9.4 fl (7.4-10.4); Monocytes Percent Auto 11.2 % (2.6-8.5); Neutrophils Absolute Auto 5.3 K/mm3 (1.3-6.7); Neutrophils Percent Auto 62.7 % (45.5-73.1); Platelet Count Result 312 k/mm3 (150-375); White Blood Count 8.5 K/mm3 (4.5-10.0)
[2023-04-29 16:01] VITALS: BP 126/70; PULSE 85; RESP 16; O2SAT 98
[2023-04-29 16:09] LABS: Prothrombin Time 13.4 Seconds (11.1-14.7)
[2023-04-29 16:10] LABS: Partial Thromboplastin Time 24.4 SECONDS (22.3-36.8)
[2023-04-29 16:17] LABS: Alanine Aminotransferase 126 U/L (6-50); Alkaline Phosphatase 65 U/L (38-126); Anion Gap 14 mmol/L (8-16); Aspartate Amino Transferase 120 U/L (17-59); Bilirubin,Total 1.6 mg/dL (0.2-1.3); Blood Urea Nitrogen 33 mg/dL (9-20); Carbon Dioxide 24 mmol/L (22-30); Chloride 97 mmol/L (98-107); Estimated CRCL calculation 37 ml/min; Estimated Glomerular Filt Rate 36; Glucose 129 mg/dL (65-110); Lipase 97 U/L (23-300); Potassium 4.2 mmol/L (3.4-5.0); Sodium 135 mmol/L (137-145)
--- NOTE | 2023-04-29 16:18 | ED.CHESTPAIN ---
HPI - Chest Pain General Chief Complaint: Chest Pain Stated Complaint: chest pain, LUQ pain, low mag Time Seen by Provider: 04/29/23 15:43 History of Present Illness HPI narrative: 62-year-old male present to the emergency department for evaluation of multiple complaints. Patient states that his primary care physician told him last week that his magnesium was critically low but patient did not present until today to have it evaluated. Patient was also told that he has a mass on the back of his sternum. Patient is also having left-sided flank pain that radiates up to his chest. Patient does have a history of coronary artery disease. Related Data Home Medications Medication Instructions Recorded Confirmed spironolactone 50 mg tablet 50 mg PO DAILY 02/01/22 10/01/22 tiotropium bromide 18 mcg capsule 18 mcg inhalation ONCE 02/01/22 10/01/22 with inhalation device (Spiriva with HandiHaler) fenofibrate nanocrystallized 145 145 mg PO DAILY 10/01/22 10/01/22 mg tablet lisinopril 20 mg tablet 20 mg PO DAILY 10/01/22 10/01/22 magnesium oxide 400 mg (241.3 mg 400 mg PO BID 10/01/22 10/01/22 magnesium) tablet metoprolol tartrate 25 mg tablet 25 mg PO DAILY 10/01/22 10/01/22 omeprazole 20 mg capsule,delayed 20 mg PO DAILY 10/01/22 10/01/22 release budesonide-formoterol HFA 160 2 puff inhalation Q12H 03/09/23 mcg-4.5 mcg/actuation aerosol inhaler (Symbicort) finasteride 5 mg tablet 5 mg PO DAILY 03/09/23 tamsulosin 0.4 mg capsule 0.4 mg PO DAILY 03/09/23 Allergies Allergy/AdvReac Type Severity Reaction Status Date / Time No Known Allergies Allergy Verified 04/29/23 15:33 Review of Systems Review of Systems: 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 Gastroenteritis GERD (gastroesophageal reflux disease) Hepatitis C History of anemia Hyperlipidemia Hypertension Hypokalemia Hypomagnesemia Hyponatremia Lactic acid acidosis Neuropathy Normocytic anemia Prediabetes Seizure Severe sepsis Surgical History Surgical History H/O endoscopy H/O shoulder surgery left glenoid and labral repair History of appendectomy at age 15 History of laparoscopic cholecystectomy (~2017) S/P ERCP Status post cataract extraction of both eyes with insertion of intraocular lens (~2019) Family History Family History Father Diabetes mellitus Hypertension Mother Hypertension Sibling Alcoholism Hypertension Social History Social History Social History: He is single and lives alone. He never had any children. He used to smoke 1.5 packs of cigarettes per day for 47 years. He is currently on disability due to degenerative disc disease of his back. 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 he drinks 4-6 beers a day and 1-2 mixed drinks a day. He uses cocaine on occasion. Code status: Full code ( although the patient states he would not want to be on ventilator long-term or have a feeding tube) surrogate decision maker: Paramjit (sisters) Smoking packs per day: 1 Smoking cigarettes per day: 20.0 Years smoked: 44 Smoking pack-years: 44.00 Smoking status: Former smoker Tobacco type: cigarettes Second hand tobacco smoke exposure: No Smoking end date: 12/04/15 Alcohol intake: current Drinks per week: 35 Alcohol use details: BEERS [employer] COCKTAILS Substance use: current Substance use type: marijuana Other subst
[2023-04-29 16:26] LABS: Troponin I < 0.012 ng/mL (0.000-0.034)
[2023-04-29] MEDS: HYDROmorphone HCL INJ (*CRX) 1 MG/ML SYR IV PUSH (16:45)
[2023-04-29 16:50] LABS: Magnesium 1.3 mg/dL (1.6-2.3)
[2023-04-29 18:15] VITALS: BP 116/69; PULSE 85; RESP 16; O2SAT 96
[2023-04-29] MEDS: MAGNESIUM SULF 2 GM/WATER 50ML 2 GM/50 ML BAG IVPB (18:15)
[2023-04-29 18:22] VITALS: BP 157/78; PULSE 87; RESP 11; O2SAT 100
[2023-04-29 19:00] LABS: Troponin I < 0.012 ng/mL (0.000-0.034)
[2023-04-29 19:46] VITALS: BP 154/95; PULSE 88; RESP 16; O2SAT 98
== END 2023-04-29 19:56 | disposition home or self-care (01) ==
PROVIDERS: Emergency Provider Emergency Medicine; PCP Physician Assistant
DX: E83.42 Hypomagnesemia (principal); R07.9 Chest pain, unspecified; I25.10 Atherosclerotic heart disease of native coronary artery without angina pectoris; J44.9 Chronic obstructive pulmonary disease, unspecified; E78.5 Hyperlipidemia, unspecified; E87.1 Hypo-osmolality and hyponatremia; E87.6 Hypokalemia; D64.9 Anemia, unspecified; K70.2 Alcoholic fibrosis and sclerosis of liver; F10.10 Alcohol abuse, uncomplicated; K21.9 Gastro-esophageal reflux disease without esophagitis; N40.0 Benign prostatic hyperplasia without lower urinary tract symptoms; R73.03 Prediabetes; M19.90 Unspecified osteoarthritis, unspecified site; Z87.891 Personal history of nicotine dependence; Z90.49 Acquired absence of other specified parts of digestive tract; Z98.42 Cataract extraction status, left eye; Z98.41 Cataract extraction status, right eye; Z96.1 Presence of intraocular lens; I45.10 Unspecified right bundle-branch block; I70.0 Atherosclerosis of aorta
CPT/HCPCS: 36415; 71046; 71275; 74174; 80053; 83690; 83735; 84484; 85025; 85610; 85730; 93005; 96365; 96375; 99284; A9270; J1170; J3475; Q9967

== ENCOUNTER 2023-10-11 16:15 | Observation (INO) | payer OTHER, SELFPAY ==
[2023-10-11] VITALS (14 sets, daily range): BP systolic 101–149; BP diastolic 57–91; PULSE 53–109; RESP 11–16; TEMP 36.4–36.6; O2SAT 96–100; BMI 29.3
--- NOTE | ~2023-10-11 | CT_ITS ---
EXAMINATION: CT facial bones wo con DATE: 10/12/2023 13:28 INDICATION: Jaw pain. TECHNIQUE: Computed tomography (CT) of the facial bones and maxillofacial region was performed withou t intravenous contrast. Automated exposure control and iterative reconstruction technique were employ ed. The dose-length product was 321.87 mGy-cm. COMPARISON: None. FINDINGS: There are likely changes of ocular lens replacement surgeries. There is leftward deviation of the nasal septum. The paranasal sinuses are clear. There is no fracture. There are multiple cariou s lesions in the remaining teeth. The temporomandibular joints are normal. There is severe cervical s pondylosis. IMPRESSION: 1. Dental disease. Reviewed, dictated and finalized at location A. IMPRESSION: 1. Dental disease.
--- NOTE | ~2023-10-11 | CT_ITS ---
EXAMINATION: CTA chest PE abdomen pel DATE: 10/11/2023 18:16 INDICATION: CP, SOB, tachycardia w/ exertion,L abd pain TECHNIQUE: Computed tomography angiography (CTA) of the chest was performed with 100 mL Omnipaque-350 intravenous contrast timed to evaluate the pulmonary arteries, followed by portal venous phase imagi ng of the abdomen and pelvis. Coronal maximum intensity projection 3D-reconstructions were created by the technologist. The dose-length product (DLP) was 441.61 mGy-cm. Automated exposure control and it erative reconstruction technique were employed. COMPARISON: X-ray chest, same date; CTA cap 04/29/2023. FINDINGS: CHEST: Lung parenchyma and airways: Clear. Pleura: Unremarkable. Thoracic inlet, axillae and chest wall: No thyroid mass. Mild symmetric gynecomastia. Thoracic aorta: No significant dilation. No dissection. Mild aortic calcification. Mediastinum: Normal. Heart and pericardium: Normal. Coronary artery calcifications: Mild. Thoracic bones: No acute osseous finding. Pulmonary arteries: Study quality: Adequate. No pulmonary emboli detected. ABDOMEN/PELVIS: Liver: Normal. Biliary/Gallbladder: Gallbladder is absent. The biliary ducts and pneumobilia likely secondary to a p atent sphincter of a dye. Prominent common bile duct, probably secondary to cholecystectomy. No bile duct dilation. Pancreas: No mass or duct dilation. Spleen: Normal. Adrenals:No mass. Kidneys: Moderate bilateral perinephric stranding. Contrast excretion in the collecting systems. Simp le right renal cysts. No hydronephrosis. GI tract: No small or large bowel dilation. Appendix not confidently visualized. Diverticulosis witho ut diverticulitis. Mesentery/Peritoneum: No ascites, mass, or free air. Retroperitoneum: No mass. Atherosclerotic abdominal aortic and/or arterial calcifications. Pelvis: Distended urinary bladder with contrast. Mild bladder wall thickening. Mild prostatomegaly. Soft Tissues: Small uncomplicated fat-containing umbilical and moderate uncomplicated fat-containing bilateral inguinal hernias. Abdominopelvic bones: No acute osseous finding. IMPRESSION: Cystitis versus urinary bladder wall thickening from chronic outlet obstruction. Otherwise no acute abdominopelvic process detected. Reviewed, dictated and finalized at location K. IMPRESSION: Cystitis versus urinary bladder wall thickening from chronic outlet obstruction . Otherwise no acute abdominopelvic process detected.
--- NOTE | ~2023-10-11 | XR_ITS ---
EXAMINATION: XR chest 2V Exam Date/Time: 10/11/2023 16:50 CDT HISTORY: chest pain Comparison: 04/29/2023; CTA cap 04/29/2023. RESULT: Lines, tubes, and devices: None. Lungs and pleura: Clear. Cardiomediastinal silhouette: Stable. Other: No acute osseous or upper abdominal finding. Loose body in the left glenohumeral joint capsul e. Degenerative changes in the thoracic spine. IMPRESSION: No acute cardiopulmonary process. Reviewed, dictated and finalized at location K.
--- NOTE | ~2023-10-11 | NM_ITS ---
EXAMINATION: NM debbi stress w perfusion DATE: 10/12/2023 12:58 INDICATION: Chest pain TECHNIQUE: Rest images were obtained following intravenous administration of 10.0 mCi Tc99m tetrofosm in (Myoview). The patient was infused intravenously with Lexiscan (Regadenoson). Then, 31.0 mCi Tc99m tetrofosmin (Myoview) was administered intravenously, and stress images were obtained. Data was maria elena nstructed into short axis and horizontal and vertical long axis SPECT images. Gated SPECT images were also obtained. COMPARISON: None. FINDINGS: There is no definite reversible or fixed perfusion abnormality to suggest ischemia or infar ction. There is normal left ventricular chamber size, wall motion and ejection fraction. Left ventr icular ejection fraction measures >70%. IMPRESSION: 1. Normal myocardial perfusion at rest and during stress. 2. Left ventricular ejection fraction measuring >70%. Reviewed, dictated and finalized at location B.
--- NOTE | ~2023-10-11 | US_ITS ---
US right upper quadrant INDICATION: Elevated liver enzymes PROCEDURE: Realtime right upper abdominal ultrasound. COMPARISON: No prior studies for comparison. FINDINGS: The pancreas is normal without focal mass or pancreatic ductal dilation. Liver echotexture is normal without focal mass or intrahepatic biliary dilatation. There is normal directional flow i n the portal vein. Gallbladder is surgically absent. Common bile duct measures 10 mm. No sonographic Richards's sign. Th ere is a right renal cyst measuring 1.9 cm. IMPRESSION: 1: Status post previous cholecystectomy with expected prominence of the common bile duct. Reviewed, dictated and finalized at location A.
--- NOTE | 2023-10-11 16:22 | ECG_ITS ---
Measurements Intervals [place] Rate: 98 P: 63 GA: 164 QRS: 6 QRSD: 123 T: 45 QT: 338 AVG RR 610 QTc: 393 QTcB 432 QTcF 398 Interpretive Statements SINUS RHYTHM RIGHT BUNDLE BRANCH BLOCK [120+ ms QRS DURATION, UPRIGHT V1, 40+ ms S IN I/aVL/V4/V5/V6] ABNORMAL ECG SEE SCANNED COPY FOR SIGNATURE MTDD
[2023-10-11 16:43] LABS: Basophils Absolute Auto 0.1 K/mm3 (0.0-0.1); Basophils Percent Auto 0.9 % (0.2-1.2); Eosinophils Absolute Auto 0.1 K/mm3 (0-0.3); Eosinophils Percent Auto 1.2 % (0-4.4); Hematocrit 32.6 % (42.0-52.0); Hemoglobin 10.4 g/dL (14.0-18.0); Lymphocytes Absolute Auto 1.66 K/mm3 (0.9-3.2); Lymphocytes Percent Auto 17.1 % (18.3-44.2); Mean Corpuscular HGB Conc 31.9 g/dl (32-36); Mean Corpuscular Hemoglobin 33.1 pg (26-34); Mean Corpuscular Volume 103.8 fl (80-100); Mean Platelet Volume 9.7 fl (7.4-10.4); Monocytes Absolute Auto 1.2 K/mm3 (0.1-0.6); Neutrophils Absolute Auto 6.6 K/mm3 (1.3-6.7); Neutrophils Percent Auto 67.8 % (45.5-73.1); Platelet Count Result 386 k/mm3 (150-375); Red Blood Count 3.14 M/mm3 (4.6-6.20); Red Cell Distribution Width 12.3 % (11.5-14.5); White Blood Count 9.7 K/mm3 (4.5-10.0)
[2023-10-11 16:51] LABS: Alanine Aminotransferase 70 U/L (6-50); Alkaline Phosphatase 61 U/L (38-126); Anion Gap 12 mmol/L (4-12); Aspartate Amino Transferase 91 U/L (17-59); Bilirubin,Total 1.8 mg/dL (0.2-1.3); Blood Urea Nitrogen 26 mg/dL (9-20); Calcium 10.2 mg/dL (8.4-10.2); Carbon Dioxide 21 mmol/L (22-30); Chloride 99 mmol/L (98-107); Estimated CRCL calculation 40 ml/min; Estimated Glomerular Filt Rate 47; Glucose 120 mg/dL (65-110); INR 0.9; Lipase 122 U/L (23-300); Potassium 4.9 mmol/L (3.4-5.0); Sodium 132 mmol/L (137-145)
[2023-10-11 16:55] LABS: Prothrombin Time 12.8 Seconds (11.1-14.7)
[2023-10-11 17:02] LABS: Troponin I < 0.012 ng/mL (0.000-0.034)
--- NOTE | 2023-10-11 17:49 | ED.CHESTPAIN ---
HPI - Chest Pain General Chief Complaint: Chest Pain Stated Complaint: chest & abd pain Time Seen by Provider: 10/11/23 17:00 Source: patient Mode of arrival: ambulatory Limitations: no limitations History of Present Illness HPI narrative: Patient is a 63-year-old male, w/ past medical history of COPD, anemia, hypertension, hyperlipidemia, diabetes, CKD, chronic back pain, who presents the ED with report of left-sided chest pain. Patient reports having intermittent chest pain throughout his left-sided chest into his left upper abdomen since last night. Pain is worse with movement/exertion. He notes that he develops shortness of breath and tachycardia with exertion, stating his heart rate has been increasing to at least the 140s with any movements, even walking to the bathroom in his house. Denies nausea, vomiting, fevers, cough. Patient denies previous heart issues. Does not currently see a preanalytics team lead. Does not take aspirin. Denies previous history of blood clots. Denies lower extremity pain or swelling. Related Data Home Medications Medication Instructions Recorded Confirmed spironolactone 50 mg tablet 25 mg PO DAILY 02/01/22 10/11/23 tiotropium bromide 18 mcg capsule 18 mcg inhalation ONCE 02/01/22 10/11/23 with inhalation device (Spiriva with HandiHaler) fenofibrate nanocrystallized 145 145 mg PO DAILY 10/01/22 10/11/23 mg tablet lisinopril 20 mg tablet 20 mg PO DAILY 10/01/22 10/11/23 metoprolol tartrate 25 mg tablet 25 mg PO DAILY 10/01/22 10/11/23 omeprazole 20 mg capsule,delayed 20 mg PO DAILY 10/01/22 10/11/23 release budesonide-formoterol HFA 160 2 puff inhalation Q12H 03/09/23 10/11/23 mcg-4.5 mcg/actuation aerosol inhaler (Symbicort) empagliflozin 25 mg tablet 25 mg PO DAILY 10/11/23 10/11/23 (Jardiance) icosapent ethyl 1 gram capsule 1 g PO BID 10/11/23 10/11/23 (Vascepa) Allergies Allergy/AdvReac Type Severity Reaction Status Date / Time No Known Allergies Allergy Verified 10/11/23 22:07 Review of Systems Review of Systems: CONSTITUTIONAL: Denies fever, chills, or sweats. CARDIOVASCULAR: See HPI. RESPIRATORY: See HPI. GASTROINTESTINAL: See HPI. MUSCULOSKELETAL: Denies back pain, extremity pain, myalgia. 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 Gastroenteritis GERD (gastroesophageal reflux disease) Hepatitis C History of anemia Hyperlipidemia Hypertension Hypokalemia Hypomagnesemia Hyponatremia Lactic acid acidosis Neuropathy Normocytic anemia Prediabetes Seizure Severe sepsis Surgical History Surgical History H/O endoscopy H/O shoulder surgery left glenoid and labral repair History of appendectomy at age 15 History of laparoscopic cholecystectomy (~2017) S/P ERCP Status post cataract extraction of both eyes with insertion of intraocular lens (~2019) Family History Family History Father Diabetes mellitus Hypertension Mother Hypertension Sibling Alcoholism Hypertension Social History Social History Social History: He is single and lives alone. He never had any children. He used to smoke 1.5 packs of cigarettes per day for 47 years. He is currently on disability due to degenerative disc disease of his back. 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 he drinks 4-6 beers a day and 1-2 mixed drinks a day. He uses cocaine on occasion. Code status: [place]
[2023-10-11] MEDS: ASPIRIN 81 MG CHEWABLE TABLET 324 MG PO (17:58)
[2023-10-11] MEDS: SODIUM CHLORIDE 0.9% IV 1,000 ML 999 ML IV CONT (17:58)
[2023-10-11] MEDS: NITROGLYCERIN SL 0.4 MG TABLET SUBLINGUAL (17:59)
[2023-10-11] MEDS: MORPHINE SULFATE (*CRX) 2 MG/ML INJ IV PUSH ×2 (18:36→23:36)
[2023-10-11] MEDS: ONDANSETRON INJ 4 MG/2 ML VIAL IV PUSH (18:36)
[2023-10-11] MEDS: diphenhydrAMINE HCl INJ 50 MG/ML VIAL 25 MG IV PUSH (18:49)
[2023-10-11 18:58] LABS: Magnesium 1.2 mg/dL (1.6-2.3)
[2023-10-11] MEDS: MAGNESIUM SULF 2 GM/WATER 50ML 2 GM/50 ML BAG IVPB (19:16)
[2023-10-11 19:47] LABS: Ethanol < 10 mg/dL (<10)
[2023-10-11 20:00] LABS: NT Pro B Type Natriuretic Pept 41 pg/mL (19.9-100); Troponin I < 0.012 ng/mL (0.000-0.034)
--- NOTE | 2023-10-11 20:24 | PM.IMHP ---
H&P: HPI History of Present Illness Date/Time: 10/11/23 20:24 Chief Complaint: chest pain Narrative: This is a 63-year-old male with past medical history significant for chronic kidney disease, COPD/ emphysema, alcohol dependence, hypertension, dyslipidemia, type diabetes mellitus, hepatitis-C, hepatic cirrhosis. patient presents to the emergency room due to chest pain localized to the retrosternal area nonradiating has been present since the day before patient is not able to really contribute much to history taking in a meaningful way his history is disperse, circumstantial, denies any nausea, vomiting, lightheadedness however states that in 2 locations he woke up laying on the floor once in the kitchen and once in his porch and has now recollection how it happened. He drinks 1 beer when he wakes up then 3 more beers throughout the day and a cocktail. Preliminary workup was significant for hemoglobin of 10, MCV of 103, hematocrit 32, creatinine 1.5 BUN 26 sodium 132, magnesium 1.2 total bili 1.8 AST 90 ALT 70 troponins x3 were 0.012 EXAMINATION:? XR chest 2V Exam Date/Time:? 10/11/2023 16:50 CDT HISTORY: chest pain ? Comparison:? 04/29/2023; CTA cap 04/29/2023. RESULT: Lines, tubes, and devices:? None. Lungs and pleura:? Clear. Cardiomediastinal silhouette:? Stable. Other:? No acute osseous or upper abdominal finding. Loose body in the left glenohumeral joint capsule. Degenerative changes in the thoracic spine. ? IMPRESSION: No acute cardiopulmonary process. EXAMINATION: CTA chest PE abdomen pel DATE: 10/11/2023 18:16 INDICATION: CP, SOB, tachycardia w/ exertion,L abd pain TECHNIQUE: Computed tomography angiography (CTA) of the chest was performed with 100 mL Omnipaque-350 intravenous contrast timed to evaluate the pulmonary arteries, followed by portal venous phase imaging of the abdomen and pelvis. Coronal maximum intensity projection 3D-reconstructions were created by the technologist. The dose-length product (DLP) was 441.61 mGy-cm. Automated exposure control and iterative reconstruction technique were employed. COMPARISON: X-ray chest, same date; CTA cap 04/29/2023. ? FINDINGS:? CHEST: Lung parenchyma and airways: Clear. Pleura: Unremarkable. Thoracic inlet, axillae and chest wall: No thyroid mass. Mild symmetric gynecomastia. Thoracic aorta: No significant dilation. No dissection. Mild aortic calcification. Mediastinum: Normal. Heart and pericardium: Normal. Coronary artery calcifications: Mild. Thoracic bones: No acute osseous finding. Pulmonary arteries: Study quality: Adequate. No pulmonary emboli detected. ABDOMEN/PELVIS: Liver: Normal.? Biliary/Gallbladder: Gallbladder is absent. The biliary ducts and pneumobilia likely secondary to a patent sphincter of a dye. Prominent common bile duct, probably secondary to cholecystectomy. No bile duct dilation. Pancreas: No mass or duct dilation. Spleen: Normal. Adrenals:No mass. Kidneys: Moderate bilateral perinephric stranding. Contrast excretion in the collecting systems. Simple right renal cysts. No hydronephrosis. GI tract: No small or large bowel dilation. Appendix not confidently visualized. Diverticulosis without diverticulitis. Mesentery/Peritoneum: No ascites, mass, or free air. Retroperitoneum: No mass. Atherosclerotic abdominal aortic and/or arterial calcifications. Pelvis: Distended urinary bladder with contrast. Mild bladder wall thickening. Mild prostatomegaly. Soft Tissues: Small uncomplicated fat-containing umbilical and moderate uncomplicated fat-containing bilateral inguinal hernias. Abdominopelvic bones:? No acute osseous finding. IMPRESSION: Cystitis versus urinary bladder wall thickening from chronic outlet obstruction. Otherwise no acute abdominopelvic process detected. Review of Systems Review of Systems: chest pain Constitutional: Constitutional: Denies chills, Denies fatigue, Denies fever(s), Denies malaise, Denies ni
[2023-10-11 20:33] LABS: Appearance Urine Clear (Clear); Bilirubin Urine Negative (Negative); Blood Urine Negative (Negative); Color Urine Yellow (Yellow); Glucose Urine UA 2+ mg/dL (Negative); Ketones Urine Negative (Negative); Leukocyte Esterase Ur Negative LEU/UL (Negative); Nitrate Urine Negative (Negative); Protein Urine Negative (Negative); Specific Grav Ur 1.022 (1.001-1.035); Urobilinogen Urine 0.2 mg/dL (<2.0)
[2023-10-11 20:36] LABS: Add Urine Microscopic? NO
[2023-10-11] MEDS: AMOXICILLIN/CLAVULANATE K 875-125 MG TAB 1 TABLET PO (21:28)
--- NOTE | 2023-10-11 22:05 | ADMGEN ---
This patient, Darrel Mayorga Jr., was admitted to IMU Room 213-01. Patient/family oriented to hospital policies and general routines including ID bracelet, bed and alarms, visiting hours, pain management, procedures, bathroom and other care routines, personal items, smoking policy, room service/diet, and visiting hours. Information on how to activate the Rapid Response Team has been discussed. Patient/Family are encouraged to report perceived risks to care and to ask questions if they do not understand what they are told or what they should do.
[2023-10-11 23:06] LABS: Troponin I < 0.012 ng/mL (0.000-0.034)
[2023-10-11] MEDS: diphenhydrAMINE HCl INJ 50 MG/ML VIAL IV PUSH (23:37)
[2023-10-12] VITALS (16 sets, daily range): BP systolic 96–132; BP diastolic 49–82; PULSE 74–106; RESP 14–19; TEMP 36.4–36.8; O2SAT 94–100
--- NOTE | 2023-10-12 | EST_ITS ---
Patient Info Name: Darrel Mayorga Age: 63 years : 1960 Gender: Male Ht: 65 in Wt: 176 lbs BSA: 1.94 m2 HR: 78 bpm BP: 116 / 91 mmHg Heart Rhythm: Sinus Rhythm Exam Date: 10/12/2023 11:51 AM Exam Location: Echo Lab Patient Status: Outpatient Admit Date: 10/11/2023 Staff Ordering Physician: Mirta Hurley MD Attending Provider: Mirta Hurley MD Exercise Technologist: Mi Stroud CT Exercise Physician: Garret Valdez DO Exam Type: CA stress debbi w NM Study Info Indications R07.89 - Other chest pain A regadenoson stress test was performed. Summary 1. 1. Negative lexiscan stress test for ischemic ST changes by ECG criteria. 2. 2. Stable hemodynamics throughout the test. 3. 3. Nuclear scan to follow and will be reported separately. Please correlate with it. 4. 4. Patient informed of the above results. Rest HR: 78 bpm Peak HR: 102 bpm Rest Sys BP: 116 mmHg Peak Sys BP: 128 mmHg Max Pred HR: 157 bpm % Max Pred HR: 65 % Target HR: 133 bpm Max RPP: 13,056 bpm*mmHg Termination Reason: Completed protocol Cardiac Symptoms: Nausea, Shortness of breath Rest Ramesh BP: 91 mmHg Peak Ramesh BP: 82 mmHg Resting ECG Sinus rhythm, RBBB. Stress ECG No ST changes. Arrhythmias None. Report Signatures
[2023-10-12] MEDS: FLUTICASONE/SALMETEROL 115-21 MCG INHALER 1 PUFF 2 PUFF INHALATION ×2 (08:39→20:13)
[2023-10-12] MEDS: UMECLIDINIUM BROMIDE 62.5 MCG ELLIPTA 1 PUFF INHALATION (08:45)
[2023-10-12] MEDS: AMOXICILLIN/CLAVULANATE K 875-125 MG TAB 1 TABLET PO ×2 (09:43→21:52)
[2023-10-12] MEDS: lisinopriL 20 MG TABLET PO (09:43)
[2023-10-12] MEDS: METOPROLOL TARTRATE 25 MG TABLET PO (09:43)
[2023-10-12] MEDS: SPIRONOLACTONE 25 MG TABLET PO (09:43)
[2023-10-12] MEDS: LOPERAMIDE HCL 2 MG CAPSULE 4 MG PO (09:43)
[2023-10-12] MEDS: MAGNESIUM OXIDE 400 MG TABLET PO (09:44)
[2023-10-12] MEDS: ATORVASTATIN 40 MG TABLET PO (09:44)
[2023-10-12] MEDS: EMPAGLIFLOZIN 25 MG TABLET PO (09:44)
[2023-10-12] MEDS: FENOFIBRATE NANOCRYSTALLIZED 145 MG TABLET PO (09:44)
[2023-10-12] MEDS: FOLIC ACID 1 MG TABLET PO (09:44)
[2023-10-12] MEDS: OMEGA 3 POLYUNSAT FATTY ACIDS 1 GM CAP PO ×2 (09:44→17:09)
--- NOTE | 2023-10-12 11:28 | PM.IMPN ---
Progress Note: A&P Assessment and Plan (1) Chest pain: Qualifiers: Chest pain type: unspecified Qualified Code(s): R07.9 - Chest pain, unspecified Code(s): R07.9 - Chest pain, unspecified Status: Acute (2) CKD (chronic kidney disease): Qualifiers: Chronic kidney disease stage: unspecified stage Qualified Code(s): N18.9 - Chronic kidney disease, unspecified Code(s): N18.9 - Chronic kidney disease, unspecified Status: Acute (3) Diabetes mellitus with nephropathy: Code(s): E11.21 - Type 2 diabetes mellitus with diabetic nephropathy Status: Acute (4) COPD (chronic obstructive pulmonary disease): Qualifiers: COPD type: unspecified COPD Qualified Code(s): J44.9 - Chronic obstructive pulmonary disease, unspecified Code(s): J44.9 - Chronic obstructive pulmonary disease, unspecified Status: Chronic (5) GERD (gastroesophageal reflux disease): Qualifiers: Esophagitis presence: esophagitis presence not specified Qualified Code(s): K21.9 - Gastro-esophageal reflux disease without esophagitis Code(s): K21.9 - Gastro-esophageal reflux disease without esophagitis Status: Chronic (6) Alcohol dependence: Code(s): F10.20 - Alcohol dependence, uncomplicated Status: Acute Plan This is a 63-year-old male presented with multiple symptoms which include left-sided chest pain abdominal pain left-sided jaw pain at started and severe since past few days. He stated that he had his heart rate bumped up to 140 any exertion associated with shortness of breath. No nausea vomiting she. No prior history of cardiac problems in the past history of hypertension hyperlipidemia COPD former smoker chronic anemia diabetes chronic kidney disease stage 3 next back pain alcohol dependence gastritis history of hepatitis C. vitals were stable except for mild tachycardia. EKG with nonspecific ST-T changes right bundle branch block with no acute ST elevation or depression. Troponin serial were negative. Chest x-ray was clear. CTA chest abdomen pelvis showed no PE or any intrathoracic abnormality no aortic dialysis in dissection or aneurysm. No significant intra-abdominal findings except for findings of chronic bladder obstruction. LFTs mildly elevated will get liver ultrasound significant history of alcohol abuse. Lipase within normal limit eval alcohol level less than 10 magnesium low at 1.2 Periodontal disease started on Augmentin get CT of the area to further evaluate underlying abscess to severity of the pain Atypical chest pain going for stress test today Chronic alcohol abuse [facility] protocol lumen ultrasound showed echogenic liver most commonly due to steatosis is status post cholecystectomy with evidence of pneumobilia secondary to prior sphincterotomy History of colon polyps and diverticulosis Chronic back pain Chronic kidney disease stage 3 creatinine 1.5 Diabetic neuropathy History of gastritis add PPI Chronic anemia DVT prophylaxis Lovenox Subjective Date/time seen: 10/12/23 11:28 Interval history: Complains of left jaw pain, chronic back pain tachycardia with exertion history reviewed Review of Systems Review of Systems: All systems reviewed & are unremarkable except as noted in HPI and below Exam Narrative: GENERAL:? Chronically ill appearing, appears older than stated age, non-toxic, in no acute distress. HEAD: Normocephalic, atraumatic. ENT: Partially edentulous. Left-sided jaw tender not warm RESPIRATORY: Airway patent, respirations nonlabored. Clear to auscultation bilaterally, no rales, rhonchi, wheezing. CARDIOVASCULAR: Regular rhythm regular rate without murmurs, rubs, or gallops. ABDOMINAL: Soft, no significant tenderness throughout abdomen, nondistended. Normoactive BS. MUSCULOSKELETAL: Moves all extremities. No gross deformities.? No lower extremity edema. No calf tenderness. SKIN: Warm, dry, normal color. NEURO: A&O X
[2023-10-12 13:17] LABS: Basophils Absolute Auto 0.1 K/mm3 (0.0-0.1); Basophils Percent Auto 0.9 % (0.2-1.2); Eosinophils Absolute Auto 0.1 K/mm3 (0-0.3); Hematocrit 34.5 % (42.0-52.0); Hemoglobin 10.5 g/dL (14.0-18.0); Immature Granulocyte Absolute 0.11 K/mm3 (0.00-0.031); Immature Granulocyte Percent A 1.1 % (0-0.5); Lymphocytes Absolute Auto 1.27 K/mm3 (0.9-3.2); Lymphocytes Percent Auto 13.1 % (18.3-44.2); Mean Corpuscular HGB Conc 30.4 g/dl (32-36); Mean Corpuscular Volume 108.5 fl (80-100); Mean Platelet Volume 9.7 fl (7.4-10.4); Monocytes Absolute Auto 1.4 K/mm3 (0.1-0.6); Monocytes Percent Auto 14.3 % (2.6-8.5); Neutrophils Absolute Auto 6.7 K/mm3 (1.3-6.7); Neutrophils Percent Auto 69.6 % (45.5-73.1); Platelet Count Result 384 k/mm3 (150-375); Red Blood Count 3.18 M/mm3 (4.6-6.20); Red Cell Distribution Width 12.4 % (11.5-14.5); White Blood Count 9.7 K/mm3 (4.5-10.0)
[2023-10-12 13:41] LABS: Alanine Aminotransferase 64 U/L (6-50); Albumin Level 4.9 g/dL (3.5-5.1); Alkaline Phosphatase 57 U/L (38-126); Anion Gap 11 mmol/L (4-12); Aspartate Amino Transferase 70 U/L (17-59); Bilirubin,Total 1.4 mg/dL (0.2-1.3); Blood Urea Nitrogen 26 mg/dL (9-20); Calcium 9.9 mg/dL (8.4-10.2); Carbon Dioxide 21 mmol/L (22-30); Chloride 101 mmol/L (98-107); Estimated CRCL calculation 42 ml/min; Estimated Glomerular Filt Rate 44; Glucose 122 mg/dL (65-110); Magnesium 1.7 mg/dL (1.6-2.3); Potassium 4.6 mmol/L (3.4-5.0); Sodium 133 mmol/L (137-145)
[2023-10-12 13:42] LABS: Platelet Estimate Adequate (Adequate)
[2023-10-12 13:45] LABS: Anisocytosis 1+; Poikilocytosis 1+
[2023-10-12 13:46] LABS: Schistocytes None Seen
[2023-10-12 14:52] LABS: Folic Acid > 20.0 ng/mL (2.76->20)
[2023-10-12] MEDS: PANTOPRAZOLE SOD SESQUIHYDRATE 20 MG TAB PO (15:03)
[2023-10-12 15:51] LABS: Iron 60 ug/dL (49-181)
[2023-10-12 16:00] LABS: Percent Iron Saturation 17 % (20-50)
[2023-10-12] MEDS: HYDROmorphone HCL INJ (*CRX) 1 MG/ML SYR 0.5 MG IV PUSH (17:10)
[2023-10-12] MEDS: HYDROcodone/acetaminophen (*CRX) 5-325 MG TABLET 1 TAB PO (21:52)
--- NOTE | 2023-10-12 22:20 | PC.NURSE ---
Report given to Liudmila DON on [facility] at this time. Patient is transferring to room 261.
--- NOTE | 2023-10-12 22:37 | PC.NURSE ---
Transfer received from IMU via wheelchair. Report received from ARIAN West.
--- NOTE | 2023-10-12 22:51 | PC.NURSE ---
This patient, Darrel Mayorga Jr., was transferred to [261 ] on 10/12/23 at 2230. Personal belongings sent with patient. Report given to [Lidumila DON ]. Appropriate documentation sent with patient.
[2023-10-13] MEDS: UMECLIDINIUM BROMIDE 62.5 MCG ELLIPTA 1 PUFF INHALATION (07:42)
[2023-10-13] MEDS: FLUTICASONE/SALMETEROL 115-21 MCG INHALER 1 PUFF 2 PUFF INHALATION (07:42)
[2023-10-13 07:44] VITALS: O2SAT 98
[2023-10-13 08:52] VITALS: BP 115/62; PULSE 107; RESP 18; O2SAT 98
[2023-10-13] MEDS: lisinopriL 20 MG TABLET PO (08:53)
[2023-10-13] MEDS: FENOFIBRATE NANOCRYSTALLIZED 145 MG TABLET PO (08:53)
[2023-10-13] MEDS: MAGNESIUM OXIDE 400 MG TABLET PO (08:53)
[2023-10-13] MEDS: ATORVASTATIN 40 MG TABLET PO (08:53)
[2023-10-13] MEDS: SPIRONOLACTONE 25 MG TABLET PO (08:53)
[2023-10-13] MEDS: AMOXICILLIN/CLAVULANATE K 875-125 MG TAB 1 TABLET PO (08:53)
[2023-10-13 08:54] VITALS: PULSE 107
[2023-10-13] MEDS: EMPAGLIFLOZIN 25 MG TABLET PO (08:54)
[2023-10-13] MEDS: OMEGA 3 POLYUNSAT FATTY ACIDS 1 GM CAP PO (08:54)
[2023-10-13] MEDS: METOPROLOL TARTRATE 25 MG TABLET PO (08:54)
[2023-10-13] MEDS: FOLIC ACID 1 MG TABLET PO (08:54)
--- NOTE | 2023-10-13 14:50 | PM.DS ---
DS: Admitting Diagnosis Discharge Date 10/13/23 Admitting Diagnosis Chest pain DS: Discharge Diagnosis Discharge Diagnosis (1) Chest pain: Qualifiers: Chest pain type: unspecified Qualified Code(s): R07.9 - Chest pain, unspecified Code(s): R07.9 - Chest pain, unspecified Status: Acute (2) CKD (chronic kidney disease): Qualifiers: Chronic kidney disease stage: unspecified stage Qualified Code(s): N18.9 - Chronic kidney disease, unspecified Code(s): N18.9 - Chronic kidney disease, unspecified Status: Acute (3) Diabetes mellitus with nephropathy: Code(s): E11.21 - Type 2 diabetes mellitus with diabetic nephropathy Status: Acute (4) COPD (chronic obstructive pulmonary disease): Qualifiers: COPD type: unspecified COPD Qualified Code(s): J44.9 - Chronic obstructive pulmonary disease, unspecified Code(s): J44.9 - Chronic obstructive pulmonary disease, unspecified Status: Chronic (5) GERD (gastroesophageal reflux disease): Qualifiers: Esophagitis presence: esophagitis presence not specified Qualified Code(s): K21.9 - Gastro-esophageal reflux disease without esophagitis Code(s): K21.9 - Gastro-esophageal reflux disease without esophagitis Status: Chronic (6) Alcohol dependence: Code(s): F10.20 - Alcohol dependence, uncomplicated Status: Acute DS: Summary Hospital Course Reason for hospitalization: 63yo male with CKD, COPD, alcohol dependence, DM and HTN here for chest pain. Please see H&P for details. Hospital Course: Patient presented to the ED for evaluation. For his chest pain, EKG showing normal sinus rhythm with right bundle branch block. Troponin was negative x3. Lexiscan stress test was negative for ischemic ST changes by ECG criteria. There images showed normal myocardial perfusion at rest and during stress with EF of greater than 70%. Patient had a CTA of the chest, abdomen and pelvis showing clear lungs, mild symmetric gynecomastia, cholecystectomy with pneumobilia, and moderate bilateral perinephric stranding. He had distended urinary bladder with contrast and mild bladder wall thickening and mild prostatomegaly. Urinalysis showed 2+ glucose otherwise negative. He was voiding normally. Patient also was complaining of jaw pain. CT of the facial bones showed leftward deviation nasal septum, no fractures and multiple caries in the remaining teeth. He was started on Augmentin for dental disease. His jaw pain is feeling better. Hemoglobin was low in the 10 range but this is within his baseline. Iron studies showed a ferritin of 1400 in a TSAT of 17%. Iron was added. B12, folate and TSH levels were normal. Creatinine is 1.5 on admission and remained stable. This is within his baseline. At the time of discharge, patient mentions that he was having episodes where he would wake up on the floor. He states this was unrelated to alcohol use. He does not recall passing out but states he has not sustained any injuries to suggest that he had fallen. He does not remember lowering himself to the ground. We discussed outpatient cardiac monitoring such as an event recorder but patient declines at this time. He also mentions that he has had a rash for the past 6 months. Some of this could be related to dry skin and he was informed on how to help improve this condition. 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 He overall did well was able to be discharged home on 10/13/2023. Status at Discharge Cognitive/behavioral status at discharge: stable Time Spent with Patient Time attestation: Total time spent providing and/or coordinating discharge services: 39 minutes Time spent: Greater than 30 minutes Exam Narrative: AF 97.6 115/62 107 18 98% ra Gen - NARD Chest - CTA bilaterally, nml RR CV - RRR S1/S2
== END 2023-10-13 16:06 | disposition home or self-care (01) ==
LOC: ANHED 17:57 → ANHIMU 21:35 → ANH2MED 10-13 15:08 → ANHIMU 10-14 07:51
PROVIDERS: Emergency Medicine; Internal Medicine; Admitting Provider Internal Medicine; Emergency Provider Physician Assistant; PCP Physician Assistant; Visit Provider Internal Medicine
DX: R07.9 Chest pain, unspecified (principal); E83.42 Hypomagnesemia; E78.5 Hyperlipidemia, unspecified; I12.9 Hypertensive chronic kidney disease with stage 1 through stage 4 chronic kidney disease, or unspecified chronic kidney disease; E11.22 Type 2 diabetes mellitus with diabetic chronic kidney disease; N18.9 Chronic kidney disease, unspecified; D63.1 Anemia in chronic kidney disease; J44.9 Chronic obstructive pulmonary disease, unspecified; K21.9 Gastro-esophageal reflux disease without esophagitis; E11.40 Type 2 diabetes mellitus with diabetic neuropathy, unspecified; R00.0 Tachycardia, unspecified; K02.9 Dental caries, unspecified; R19.7 Diarrhea, unspecified; N40.0 Benign prostatic hyperplasia without lower urinary tract symptoms; K74.60 Unspecified cirrhosis of liver; I45.10 Unspecified right bundle-branch block; G89.29 Other chronic pain; M54.9 Dorsalgia, unspecified; Z86.19 Personal history of other infectious and parasitic diseases; Z87.891 Personal history of nicotine dependence; F10.20 Alcohol dependence, uncomplicated; Y90.0 Blood alcohol level of less than 20 mg/100 ml; Z90.49 Acquired absence of other specified parts of digestive tract; F14.90 Cocaine use, unspecified, uncomplicated; F12.90 Cannabis use, unspecified, uncomplicated; Z79.51 Long term (current) use of inhaled steroids; Z79.84 Long term (current) use of oral hypoglycemic drugs; Z79.85 Long-term (current) use of injectable non-insulin antidiabetic drugs; Z79.899 Other long term (current) drug therapy
CPT/HCPCS: 36415; 70486; 71046; 71275; 74177; 76705; 78452; 80053; 80307; 81003; 82607; 82728; 82746; 83540; 83550; 83690; 83735; 83880; 84443; 84484; 85025; 85610; 85730; 93005; 93017; 94640; 96361; 96365; 96366; 96374; 96375; 96376; 99285; A9270; A9502; G0378; G0379; J1170; J1200; J2270; J2405; J2785; J3475; J7030; Q9967